=== PATIENT | female | born 1960 ===

== ENCOUNTER 2021-10-19 08:02 | Outpatient (REF) | payer OTHER, SELFPAY ==
--- NOTE | ~2021-10-19 | XR_ITS ---
EXAMINATION: XR SHOULDER, RIGHT CLINICAL INFORMATION: Pain COMPARISON: Right shoulder x-rays 11/14/2017 TECHNIQUE: Three views of the right shoulder. FINDINGS: Visualized portion of the proximal right humerus demonstrate no fracture. Humeral head demonstrates good articulation with the glenoid fossa. Large osteophyte off the inferomedial aspect of the humeral head. There are mild to moderate hypertrophic changes of the right acromioclavicular joint. Visualized right-sided ribs and lung parenchyma are unremarkable. XR/XR shoulder RT min 2V IMPRESSION: Large osteophyte off the inferomedial aspect of the humeral head.
[2021-10-19 14:50] LABS: MANUAL DIFF FLAG NO
[2021-10-19 15:10] LABS: Basophils Absolute Auto 0.1 X10*3/uL (0.0-0.2); Basophils Percent Auto 1.1 % (0-2); Eosinophils Absolute Auto 0.3 X10*3/uL (0.0-0.4); Eosinophils Percent Auto 4.7 % (0-4); Hematocrit 39.2 % (37.0-47.0); Hemoglobin 12.4 g/dl (12.0-16.0); Imm Gran Abs Auto 0.02 X10*3/uL (0.00-0.03); Imm Gran Pct Auto 0.3 % (0.0-0.4); Lymphocytes Absolute Auto 1.4 X10*3/uL (1.2-4.9); Lymphocytes Percent Auto 20.7 % (20-40); Mean Corpuscular HGB Conc 31.6 g/dl (31.0-35.0); Mean Corpuscular Volume 91.8 fL (80.0-98.0); Mean Platelet Volume 10.3 fL (9.4-12.3); Monocytes Absolute Auto 0.6 X10*3/uL (0.1-1.2); Monocytes Percent Auto 9.1 % (2-11); Neutrophils Absolute Auto 4.5 x10*3/uL (2.0-8.3); Neutrophils Percent Auto 64.1 % (45-73); Platelet Count 238 X10*3/uL (160-400); Red Blood Count 4.27 X10*6/uL (4.20-5.50); Red Cell Distribution Width 13.2 % (11.0-16.0)
[2021-10-19 15:39] LABS: Alanine Aminotransferase 14 U/L (0-31); Albumin Level 4.1 g/dL (3.5-5.0); Alkaline Phosphatase 98 U/L (39-117); Anion Gap 13 (12-20); Aspartate Amino Transferase 23 U/L (5-31); Bilirubin Total 0.5 mg/dL (0.0-1.0); Blood Urea Nitrogen 9 mg/dL (9-16); Calcium 9.3 mg/dL (8.4-10.2); Carbon Dioxide 27 mmol/L (22-29); Chloride 105 mmol/L (96-108); Cholesterol 155 mg/dL; Estimated Glomerular Filt Rate > 60; Glucose Fasting 99 mg/dL (60-99); HDL Cholesterol 43 mg/dL; LDL Cholesterol Calculated 88 mg/dl; Potassium 4.7 mmol/L (3.3-5.1); Sodium 140 mmol/L (135-145); Total Protein 7.2 g/dL (6.5-8.0); Triglycerides 124 mg/dL
[2021-10-19 15:55] LABS: Appearance Urine HAZY; Color Urine YELLOW; Glucose Urine UA NEG (NEG); Leukocyte Esterase Urine 1+ (NEG); Nitrite Urine POS (NEG); Specific Gravity - Urine >= 1.030 (1.005-1.025); UACC Culture Trigger YES; Urine Blood NEG (NEG); Urine Ketones NEG (NEG); Urine Protein TRACE MG/DL (NEG-TRACE)
[2021-10-19 16:38] LABS: Bacteria Urine 3+ /LPF; RBC Urine 0 /HPF (0)
[2021-10-19 16:44] LABS: Free T4 (Free Thyroxine) 1.15 ng/dL (0.71-1.85); Thyroid Stimulating Hormone 0.53 uIU/mL (0.32-4.0); Vitamin D 25-OH Total 8.5 ng/mL (>30)
== END 2021-10-19 08:03 | disposition home or self-care (01) ==
LOC: HO.HOSX 08:02
PROVIDERS: Absent Provider Internal Medicine; PCP Internal Medicine; Visit Provider Physician Assistant
DX: M19.011 Primary osteoarthritis, right shoulder (principal); E78.00 Pure hypercholesterolemia, unspecified; E03.9 Hypothyroidism, unspecified; E55.9 Vitamin D deficiency, unspecified; I10 Essential (primary) hypertension
CPT/HCPCS: 20610; 36415; 73030; 80053; 80061; 81001; 81003; 82306; 84439; 84443; 85025; 87086; 87088; 87186; 99212; J1040

== ENCOUNTER 2021-10-22 12:04 | Outpatient (REF) | payer OTHER, SELFPAY ==
--- NOTE | ~2021-10-22 | XR_ITS ---
EXAMINATION: XR PELVIS CLINICAL INFORMATION: Pain in hip COMPARISON: Right hip and pelvis radiographs 10/07/2017 TECHNIQUE: AP view of the pelvis. XR/XR pelvis 1-2V FINDINGS/IMPRESSION: No acute fracture or dislocation. Status post right hip arthroplasty. No findings to suggest hardware failure or complication. Left hip joint space is maintained. Degenerative disc disease in the visualized lumbosacral spine progressed from prior. Soft tissues are unremarkable.
== END 2021-10-22 12:05 | disposition home or self-care (01) ==
LOC: HO.HOSX 12:04
PROVIDERS: Visit Provider Orthopaedic Surgery
DX: M19.011 Primary osteoarthritis, right shoulder (principal); Z96.641 Presence of right artificial hip joint
CPT/HCPCS: 20610; 72170; J1100

== ENCOUNTER 2021-12-26 16:09 | Outpatient (REF) | payer OTHER, SELFPAY ==
--- NOTE | ~2021-12-26 | US_ITS ---
EXAMINATION: US VENOUS ULTRASOUND WITH DOPPLER LOWER EXTREMITY, RIGHT CLINICAL INFORMATION: Pain. COMPARISON: None TECHNIQUE: Ultrasound of the deep veins is performed from the hip to the calf with compression sonography and color and pulse Doppler assessment. Spectral analysis with color-flow imaging is performed. FINDINGS: There is normal venous compression and respiratory variation and augmented flow. The visualized common femoral vein, superficial femoral vein, profunda femoral vein, popliteal vein, and the trifurcation region shows no evidence of deep venous thrombosis. Calf veins are not well seen. There is no significant popliteal fossa cyst. If the patient's symptoms persist, followup ultrasound in 5 days 7 days might be of value to exclude proximal propagation from a non-visualized calf vein. US/US venous duplex LE RT IMPRESSION: No DVT demonstrated in the right lower extremity.
== END 2021-12-26 16:10 | disposition home or self-care (01) ==
LOC: HO.US 16:09
PROVIDERS: PCP Internal Medicine; Visit Provider Internal Medicine
DX: M79.661 Pain in right lower leg (principal); M79.89 Other specified soft tissue disorders
CPT/HCPCS: 93971

== ENCOUNTER 2021-12-27 06:27 | Outpatient (REF) | payer OTHER, SELFPAY ==
--- NOTE | ~2021-12-27 | XR_ITS ---
EXAMINATION: XR KNEE, AP STANDING, BILATERAL XR KNEE, RIGHT CLINICAL INFORMATION: Right knee pain. COMPARISON: None TECHNIQUE: AP bilateral knee standing 1 view. Right knee 2 views. FINDINGS: AP BILATERAL KNEE: There is mild reduction in medial compartment joint space both knees with mild periarticular spurring in the lateral compartment and mild loss of lateral compartment joint space. 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 RIGHT KNEE: There is anterior femoral condyle articulating metallic prosthesis and postsurgical changes along the articulating patella. Mild suprapatellar joint effusion is seen. No visible fracture or dislocation. No lytic process. No bony erosive changes. XR/XR knee RT 2V IMPRESSION: Mild degenerative arthritic changes medial and lateral compartment both knees. There is right anterior femoral condylar articulating prosthesis and right patellar articulating postoperative changes. There is mild suprapatellar joint effusion. No visible acute fracture or dislocation seen. 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
--- NOTE | ~2021-12-27 | XR_ITS ---
EXAMINATION: XR KNEE, AP STANDING, BILATERAL XR KNEE, RIGHT CLINICAL INFORMATION: Right knee pain. COMPARISON: None TECHNIQUE: AP bilateral knee standing 1 view. Right knee 2 views. FINDINGS: AP BILATERAL KNEE: There is mild reduction in medial compartment joint space both knees with mild periarticular spurring in the lateral compartment and mild loss of lateral compartment joint space. 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 RIGHT KNEE: There is anterior femoral condyle articulating metallic prosthesis and postsurgical changes along the articulating patella. Mild suprapatellar joint effusion is seen. No visible fracture or dislocation. No lytic process. No bony erosive changes. XR/XR knee standing BI IMPRESSION: Mild degenerative arthritic changes medial and lateral compartment both knees. There is right anterior femoral condylar articulating prosthesis and right patellar articulating postoperative changes. There is mild suprapatellar joint effusion. No visible acute fracture or dislocation seen. 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
== END 2021-12-27 06:28 | disposition home or self-care (01) ==
LOC: HO.HOSX 06:27
PROVIDERS: Visit Provider Orthopaedic Surgery
DX: I10 Essential (primary) hypertension (principal); E03.9 Hypothyroidism, unspecified; E78.00 Pure hypercholesterolemia, unspecified; E55.9 Vitamin D deficiency, unspecified; M25.569 Pain in unspecified knee; M79.89 Other specified soft tissue disorders; M70.51 Other bursitis of knee, right knee
CPT/HCPCS: 73560; 73565

== ENCOUNTER 2021-12-27 11:33 | Outpatient (REF) | payer OTHER, SELFPAY ==
[2021-12-27 11:43] LABS: MANUAL DIFF FLAG NO
[2021-12-27 12:16] LABS: Basophils Absolute Auto 0.1 X10*3/uL (0.0-0.2); Eosinophils Absolute Auto 0.2 X10*3/uL (0.0-0.4); Eosinophils Percent Auto 3.7 % (0-4); Hematocrit 34.2 % (37.0-47.0); Hemoglobin 11.3 g/dl (12.0-16.0); Imm Gran Abs Auto 0.02 X10*3/uL (0.00-0.03); Imm Gran Pct Auto 0.3 % (0.0-0.4); Lymphocytes Absolute Auto 1.2 X10*3/uL (1.2-4.9); Lymphocytes Percent Auto 19.3 % (20-40); Mean Corpuscular Hemoglobin 29.5 pg (27.0-33.0); Mean Corpuscular Volume 89.3 fL (80.0-98.0); Mean Platelet Volume 9.7 fL (9.4-12.3); Monocytes Absolute Auto 0.3 X10*3/uL (0.1-1.2); Monocytes Percent Auto 5.4 % (2-11); Neutrophils Absolute Auto 4.2 x10*3/uL (2.0-8.3); Neutrophils Percent Auto 70.3 % (45-73); Platelet Count 194 X10*3/uL (160-400); Red Blood Count 3.83 X10*6/uL (4.20-5.50)
[2021-12-27 12:42] LABS: Alanine Aminotransferase 10 U/L (0-31); Albumin Level 3.7 g/dL (3.5-5.0); Alkaline Phosphatase 119 U/L (39-117); Anion Gap 9 (12-20); Aspartate Amino Transferase 14 U/L (5-31); Bilirubin Total 0.5 mg/dL (0.0-1.0); Blood Urea Nitrogen 15 mg/dL (9-16); Calcium 8.8 mg/dL (8.4-10.2); Carbon Dioxide 33 mmol/L (22-29); Chloride 99 mmol/L (96-108); Cholesterol 128 mg/dL; Estimated Glomerular Filt Rate > 60; Glucose Fasting 116 mg/dL (60-99); HDL Cholesterol 37 mg/dL; LDL Cholesterol Calculated 64 mg/dl; Potassium 3.3 mmol/L (3.3-5.1); Sodium 138 mmol/L (135-145); Total Protein 6.5 g/dL (6.5-8.0); Triglycerides 135 mg/dL
[2021-12-27 13:03] LABS: Free T4 (Free Thyroxine) 0.92 ng/dL (0.71-1.85); Thyroid Stimulating Hormone 0.74 uIU/mL (0.32-4.0); Vitamin D 25-OH Total 9.1 ng/mL (>30)
== END 2021-12-27 11:34 | disposition home or self-care (01) ==
LOC: HO.LAB 11:33
PROVIDERS: Visit Provider Internal Medicine
DX: I10 Essential (primary) hypertension (principal); E03.9 Hypothyroidism, unspecified; E78.00 Pure hypercholesterolemia, unspecified; E55.9 Vitamin D deficiency, unspecified; M79.89 Other specified soft tissue disorders; M70.51 Other bursitis of knee, right knee; M25.569 Pain in unspecified knee
CPT/HCPCS: 36415; 80053; 80061; 82306; 84439; 84443; 85025

== ENCOUNTER → 2022-09-27 12:11 | Outpatient (BNVA) | payer OTHER, SELFPAY | PROVIDERS: PCP Internal Medicine; Visit Provider Orthopaedic Surgery | DX: M19.011 Primary osteoarthritis, right shoulder (principal) | CPT/HCPCS: 20610; J1100 ==

== ENCOUNTER → 2022-10-24 14:13 | Outpatient (BNVA) | payer OTHER, SELFPAY | PROVIDERS: PCP Internal Medicine; Visit Provider Internal Medicine Cardiovascular Disease | DX: I48.0 Paroxysmal atrial fibrillation (principal) | CPT/HCPCS: 93005 ==

== ENCOUNTER → 2022-11-21 11:34 | Outpatient (BNVA) | payer OTHER, SELFPAY | PROVIDERS: PCP Internal Medicine; Visit Provider Internal Medicine Cardiovascular Disease ==

== ENCOUNTER 2022-11-25 15:13 | Outpatient (REF) | payer OTHER, SELFPAY ==
[2022-11-25 15:39] LABS: MANUAL DIFF FLAG NO
[2022-11-25 17:04] LABS: Appearance Urine Clear; Color Urine Dark Yellow; Glucose Urine UA Negative (Negative); Leukocyte Esterase Urine Negative (Negative); Nitrite Urine Negative (Negative); PH 5.5 (5.0-9.0); Specific Gravity - Urine 1.025 (1.005-1.025); UMIC TRIGGER UACC YES; Urine Blood Negative (Negative); Urine Ketones Trace mg/dL (Negative); Urine Protein 100 (2+) mg/dL (Neg-Trace)
[2022-11-25 17:04] LABS: Basophils Absolute Auto 0.1 X10*3/uL (0.0-0.2); Basophils Percent Auto 1.3 % (0-2); Eosinophils Absolute Auto 0.3 X10*3/uL (0.0-0.4); Eosinophils Percent Auto 4.4 % (0-4); Hemoglobin 12.2 g/dl (12.0-16.0); Imm Gran Abs Auto 0.02 X10*3/uL (0.00-0.03); Imm Gran Pct Auto 0.3 % (0.0-0.4); Lymphocytes Absolute Auto 1.5 X10*3/uL (1.2-4.9); Lymphocytes Percent Auto 21.5 % (20-40); Mean Corpuscular Hemoglobin 29.2 pg (27.0-33.0); Mean Corpuscular Volume 88.5 fL (80.0-98.0); Mean Platelet Volume 10.3 fL (9.4-12.3); Monocytes Absolute Auto 0.4 X10*3/uL (0.1-1.2); Monocytes Percent Auto 5.9 % (2-11); Neutrophils Absolute Auto 4.5 x10*3/uL (2.0-8.3); Neutrophils Percent Auto 66.6 % (45-73); Platelet Count 218 X10*3/uL (160-400); Red Blood Count 4.18 X10*6/uL (4.20-5.50); White Blood Count 6.8 X10*3/uL (4.8-10.8)
[2022-11-25 17:10] LABS: Bacteria Urine None Seen (None Seen); Hyaline Casts Urine 0-2 /LPF (0-2); RBC Urine 0-2 /HPF (0-2); WBC Urine 0-5 /HPF (0-5)
[2022-11-25 17:30] LABS: Alanine Aminotransferase 8 U/L (0-31); Alkaline Phosphatase 101 U/L (39-117); Anion Gap 10 (12-20); Aspartate Amino Transferase 12 U/L (5-31); Bilirubin Total 0.8 mg/dL (0.0-1.0); Blood Urea Nitrogen 12 mg/dL (9-16); Calcium 9.5 mg/dL (8.4-10.2); Carbon Dioxide 28 mmol/L (22-29); Chloride 104 mmol/L (96-108); Cholesterol 170 mg/dL; Estimated Glomerular Filt Rate > 60; Glucose Fasting 94 mg/dL (60-99); HDL Cholesterol 37 mg/dL; LDL Cholesterol Calculated 114 mg/dl; Potassium 3.4 mmol/L (3.3-5.1); Sodium 139 mmol/L (135-145); Total Protein 6.9 g/dL (6.5-8.0); Triglycerides 99 mg/dL
[2022-11-25 17:49] LABS: Free T4 (Free Thyroxine) 1.12 ng/dL (0.71-1.85); Thyroid Stimulating Hormone 2.55 uIU/mL (0.32-4.0); Vitamin D 25-OH Total 35.6 ng/mL (>30)
== END 2022-11-25 15:14 | disposition home or self-care (01) ==
LOC: HO.LAB 15:13
PROVIDERS: PCP Internal Medicine; Visit Provider Internal Medicine
DX: E78.00 Pure hypercholesterolemia, unspecified (principal); E55.9 Vitamin D deficiency, unspecified; E03.9 Hypothyroidism, unspecified; I10 Essential (primary) hypertension
CPT/HCPCS: 36415; 80053; 80061; 81001; 81003; 82306; 84439; 84443; 85025

== ENCOUNTER 2023-02-28 13:34 | Outpatient (AMB) | payer OTHER, SELFPAY ==
[2023-02-28 13:36] VITALS: BP 142/90; PULSE 76; O2SAT 97; BMI 27.2
--- NOTE | 2023-02-28 13:36 | MHC.PC.OV ---
Vital Signs 02/28/23 13:36 Height 5 ft 6 in Weight 168 lb 4 oz BMI 27.2 BP 142/90 H Blood Pressure Location Lt brachial Position Sitting Pulse 76 Pulse Source Pulse Oximeter Pulse Oximetry (%) 97 Oxygen Delivery Method Room Air Intake Visit Reasons: 3mth f/u Statistician Applied Required: No Accompanied by: Self / Same As Patient Allergies latex [LATEX] Allergy (Intermediate, Verified 02/28/23 14:13) BLISTERS Medication List - Last Reconciled 02/28/23 by Carlos Mata MD blood pressure monitor (Blood Pressure Kit) As directed buspirone 30 mg PO BID 30 days cabergoline 0.25 mg PO .Weekly cholecalciferol (vitamin D3) 50 mcg PO DAILY 90 days doxepin 10 mg PO DAILY PRN escitalopram oxalate 20 mg PO DAILY fluconazole 150 mg PO ONCE hydrocodone-acetaminophen 10-325 mg 1 tab PO .2 to 3 times a day PRN 15 days hydroxychloroquine 200 mg PO BID levothyroxine 150 mcg PO DAILY 90 days lidocaine 5% 1 appl topical BID-TID PRN lorazepam 1 mg PO TID PRN 30 days metoprolol tartrate 25 mg PO BID [QUAD CANE As directed] simvastatin 20 mg PO BEDTIME 90 days [teds hose As directed] tizanidine 8 mg (2 x 4 mg) PO Q8H PRN 30 days tramadol 50 mg PO TID PRN 30 days [WRIST BRACES, bilateral (MEDIUM) As directed] Tobacco use date assessed: 02/28/23 Fall risk assessment: 2 + Falls in past year Last assessed Fall Risk: 02/28/23 Dental Screening Dental Screen Date: 02/28/23 Did you have a dental visit in the last 12 months?: No Did you have a dental problem in the last 6 months where you did not have access to dental care?: No Was dental information given to patient?: No HPI 3mth f/u HPI Details Patient comes in today for her follow up visit States that she has been having trouble getting her Lorazepam prescription refilled lately and her anxiety has significantly increased as a result States that she has also been experiencing some on and off shaking lately, which she is attributing to her anxiety Reports experiencing some chest congestion and occasional shortness of breath as well recently Add that she has been losing weight lately - feels that she eats okay so she does not know why she is losing weight and this is concerning her She denies any fever or sore throat; denies any recent cough or cold symptoms Denies any dizziness but states that she still has on and off headaches Denies any chest pains No nausea/ vomiting, no abdominal pain No change in bowel habits noted Would like to know how she did on her follow-up labs done back in November 2022 [facility] Medical History (Updated 02/28/23 @ 14:19 by Carlos Mata MD) Acquired hypothyroidism Acquired hypothyroidism Afib Anemia Anxiety Colonoscopy refused COPD (chronic obstructive pulmonary disease) Depression HTN (hypertension) Hypokalemia Impaired fasting glucose Obesity (BMI 30-39.9) Overweight (BMI 25.0-29.9) Pituitary macroadenoma Primary osteoarthritis, right shoulder Pure hypercholesterolemia Pure hypercholesterolemia Right-sided low back pain with right-sided sciatica Sacral dysfunction Sjogren's disease Sjogren's syndrome Surgical History Closed displaced fracture of right patella H/O: hysterectomy History of right hip replacement Right carpal tunnel syndrome (~2010) Family History Father CAD (coronary artery disease) Thyroid disease CVD (cardiovascular disease) Mother CVD (cardiovascular disease) Scleroderma Sister No problems noted. Brother No problems noted. Sister No problems noted. Other Closed displaced fracture of right patella Social History Housing: House Alcohol intake: former Patient Tobacco Use Status: Former Tobacco user e-Cigarette/Vaping Use: Never Used Second Hand Smoke Exposure: Yes Substance Use Type: Marijuana service: No Current occupational status: retired and disabled Cognitive needs: Yes (cane) Hearing needs: No Vision needs: No Questionnaire PHQ-9 Over the last 2 weeks, how often have you been bothered by any of the following problems? 1. Little interest or pleasure in doing things: not at all 2. Feeling down, depressed, or hopeless: not at all 3. Trouble falling or staying asleep, or sleeping too much: not at all 4. Feeling tired or having little energy: not at all 5. Poor appetite or overeating: not at all 6. Feeling bad about yourself - or that you are a failure or have let yourself or your family down: not at all 7. Trouble concentrating on things, such as reading the newspaper or watching television: not at all 8. Moving or speaking so slowly that other people could have noticed. Or the opposite - being so fidgety or restless that you have been moving around a lot more than usual: not at all 9. Thoughts that you would be better off or of hurting yourself in some way: not at all Total score: 0 Depression Screening Interpretation: Negative (is on Rx for her depression) 80597 - PHQ-9 Billing: Yes Source: Developed by Drs. David Soares, Keiry Rodgers, Donn Walls and colleagues, with an educational violet from [employer]. Thrive Questionnaire Date Thrive assessed: 02/28/23 I am a: Patient What is your living situation today?: I have a steady place to live Within the past 12 months, did the food you bought not last and you didn't have the money to get more?: Never true Within the past 12 months, did you worry whether your food would run out before you got money to buy more?: Never true Do you have trouble paying for medicines?: No Do you have trouble getting transportation to medical appointments?: No Do you have trouble paying your heating and electricity bill?: No Do you have trouble taking care of your child, family member or friend?: No Do you have trouble with day-to-day activities such as bathing, preparing meals, shopping, managing finances, etc.?: No Are you currently unemployed and looking for a job?: No Are you interested in more education?: No Please select the resources that you would like help with: None Currently or been in a relationship where the following occur: no concerns reported AUDIT C Alcohol Use Questionnaire (AUDIT-C) 1. How often do you have a drink containing alcohol?: Never 3. How often do you have six or more drinks on one occasion?: Never Total Score: 0 Score Reviewed/Action Taken: Yes PILY-7 AMB Questionnaire PILY-7 Date PILY - 7 assessed: 02/28/23 Feeling nervous, anxious, or on edge: 0 = Not at all Not being able to stop or control worryin = Not at all Worrying too much about different things: 0 = Not at all Trouble relaxin = Not at all Being so restless that it is hard to sit still: 0 = Not at all Becoming easily annoyed or irritable: 0 = Not at all Feeling afraid as if something awful might happen: 0 = Not at all Total PILY-7 score (0-4 normal; 5-9 mild; 10-14 moderate; 15-21 severe): 0 Source: Developed by Drs. David Soares, Keiry Rodgers, Donn Walls and colleagues, with an educational violet from [employer]. Review of Systems Const Denies chills, Reports difficulty sleeping, Reports fatigue, Denies fever(s), Reports headache(s) (on and off) and Reports weight loss ENT Denies dysphagia, Denies dizziness, Denies otalgia, Reports headache(s) (on and off), Denies odynophagia and Denies sore throat Card Denies chest pain, Denies palpitations and Reports dyspnea (on and off lately) Resp Reports chest congestion (frequent lately), Reports cough (on and off), Reports dyspnea (on and off lately) and Denies wheezing GI Denies abdominal pain, Denies constipation, Denies dysphagia, Denies heartburn, Denies diarrhea, Denies nausea, Denies odynophagia and Denies vomiting Denies difficulty voiding, Denies nocturia and Denies dysuria Musc Details: (+) right leg pain and swelling Reports back pain (over the lower back) and Reports arthralgias (involving multiple joints, especially over right shoulder lately) Skin/Breast Denies rash Neuro Denies dizziness, Reports headache(s) (on and off) and Reports tremor(s) (patient describes as recurrent shakes due to her anxiety) Psych Reports anxiety (increasing lately) and Reports depression Endo Reports fatigue and Denies palpitations Aller/Immun Denies wheezing Physical exam (Primary Care) Vital Signs: Last Vital Signs Pulse 76 02/28/23 13:36 BP 142/90 H 02/28/23 13:36 Pulse Ox 97 02/28/23 13:36 Oxygen Delivery Method Room Air 02/28/23 13:36 BMI result Body Mass Index 27.2 Tobacco/Smoking Status: Tobacco use Status Tobacco use date assessed 02/28/23 02/28/23 13:45 Patient Tobacco Use Status Former Tobacco user 02/28/23 13:45 e-Cigarette/Vaping Use Never Used 02/28/23 13:45 PHQ-9: PHQ-9 Score PHQ-9: Total score 0 02/28/23 14:15 Depression Screening Interpretation: Negative (is on Rx for her depression) Thrive Assessment: Date of Thrive Assessment Date Thrive assessed 02/28/23 02/28/23 13:45 Currently or been in a relationship where the following occur: no concerns reported Const General: no acute distress and alert HENMT Ears: TM's normal bilaterally and EAC's normal Throat: Yes posterior oropharynx normal and Yes tonsils normal (no TP congestion) Neck Neck: Yes no lymphadenopathy and Yes supple Thyroid: Thyroid normal Resp Auscultation: no rales, rhonchi (scattered) throughout, no wheezes and diminished lung sounds (slightly) Cardio Rate: regular rate Rhythm: regular rhythm Heart sounds: no murmurs GI Palpation (GI): Soft to palpation and nontender Auscultation: normal bowel sounds Back/Spine/Pelvis Thoracic/Lumbar Spine: lumbar spinal tenderness Skin Rashes: no rashes Neuro Motor exam (neuro): Tremors during motor activity present (noted in both hands occasionally) Extrem General: Yes edema (2+ over the right lower extremity) Results Reviewed Results Reviewed: Laboratory Tests 11/25/22 11/25/22 11/25/22 15:35 15:37 15:37 WBC 6.8 Hgb 12.2 Hct 37.0 Plt Count 218 Sodium 139 Potassium 3.4 Creatinine 0.88 Estimated GFR > 60 Fasting Glucose 94 Calcium 9.5 D AST 12 ALT 8 Triglycerides 99 Cholesterol 170 LDL Cholesterol, Calc 114 HDL Cholesterol 37 25-OH Vitamin D Total 35.6 TSH 2.55 Free T4 1.12 Ur Specific [place] 1.025 Urine Protein 100 (2+) H Urine Glucose (UA) Negative Urine Blood Negative Assessment and Plan Assessment & Plan (1) COPD (chronic obstructive pulmonary disease): Code(s): J44.9 - Chronic obstructive pulmonary disease, unspecified Qualifiers: COPD type: unspecified COPD Qualified Code(s): J44.9 - Chronic obstructive pulmonary disease, unspecified Plan: Patient appears to be experiencing some exacerbations of her COPD currently Will send her for chest x-rays [facility] for further evaluation Continue Spiriva HandiHaler 18 mcg QD and ProAir HFA 2 puffs QID PRN in the meantime (2) Pure hypercholesterolemia: Code(s): E78.00 - Pure hypercholesterolemia, unspecified Plan: Results of her labs done back in November 2022 reviewed and discussed with patient Reinforced low cholesterol diet Continue Simvastatin 20 mg QD (3) Impaired fasting glucose: Code(s): R73.01 - Impaired fasting glucose Plan: Reinforced low calorie diet/exercise as tolerated FBS was normal at 94 mg/dl on her labs done a few months ago; in-office HgbA1c was normal at 5.7% when checked back in April 2022 (4) Acquired hypothyroidism: Code(s): E03.9 - Hypothyroidism, unspecified Plan: TFTs were normal on her labs done a few months ago Continue Levothyroxine 150 mcg QD (5) Right-sided low back pain with right-sided sciatica: Code(s): M54.41 - Lumbago with sciatica, right side Qualifiers: Chronicity: chronic Qualified Code(s): M54.41 - Lumbago with sciatica, right side; G89.29 - Other chronic pain Plan: Reinforced activity and weight-lifting restrictions Continue Gabapentin 600 mg 3 times a day Continue [place] 10-325 mg 1 tablet 2 to 3 times a day as needed, 15 days, # 40 tablets, refills 0 Patient was receiving physical therapy at the beginning of 2019 - states that therapy was helping but this was cut short by the COVID-19 pandemic and she has not resumed PT since as patient does not want to get vaccinated against COVID and she wants to limit her exposure risks Adds that physical therapy is at least a [address] away and she cannot afford the gas money required for her to get to her sessions then (6) Sjogren's disease: Code(s): M35.00 - Sjogren syndrome, unspecified Qualifiers: Sjogren's organ involvement: unspecified organ involvement Qualified Code(s): M35.00 - Sicca syndrome, unspecified Plan: Continue Hydroxychloroquine tablets 200 mg twice a day Follow up with rheumatology as scheduled (7) Tremor: Code(s): R25.1 - Tremor, unspecified Plan: Patient reports experiencing frequent shaking spells lately, which she is attributing to her increased anxiety Suspect that her shaking may actually be tremors Will refer her to neurology for further evaluation and management (8) Vitamin D deficiency: Code(s): E55.9 - Vitamin D deficiency, unspecified Plan: Continue Vitamin D3 2000 units QD (9) Anxiety: Code(s): F41.9 - Anxiety disorder, unspecified Plan: Continue Lorazepam 1 mg TID PRN, Buspirone 30 mg BID, Escitalopram 20 mg QD and Doxepin 10 mg Q HS As she has been having trouble getting her regular Lorazepam 1 mg Rx refilled lately, will try to send in Rx for the 0.5 mg tablets that she can take 2 at a time Advised that this will be a temporary solution until her regular 1 mg tablets are back in stock (10) Depression: Code(s): F32.9 - Major depressive disorder, single episode, unspecified Qualifiers: Active/Remission status: currently active Depression Type: major depressive disorder Major depression episode severity: unspecified Major depression recurrence: recurrent Qualified Code(s): F33.9 - Major depressive disorder, recurrent, unspecified Plan: Continue Escitalopram 20 mg QD Could not tolerate Mirtazapine (leg cramps) Is also seeing a therapist regularly/weekly - to continue as scheduled (11) Overweight (BMI 25.0-29.9): Code(s): E66.3 - Overweight Plan: Reinforced diet; exercise and weight loss are unrealistic given patient's physical limitations and issues although she has lost some weight unintentionally lately and this is concerning for her Plan To return as scheduled in 2 months for her annual physical examination Orders: Orders XR chest 2V 02/28/23 J44.9 - Chronic obstructive pulmonary disease, unspecified, R06.00 - Dyspnea, unspecified, R63.4 - Abnormal weight loss Complete Blood Count Auto Diff 04/14/23 I10 - Essential (primary) hypertension Comprehensive [place]. Panel Fast 04/14/23 E78.00 - Pure hypercholesterolemia, unspecified Lipid Panel 04/14/23 E78.00 - Pure hypercholesterolemia, unspecified Free T4 (Free Thyroxine) 04/14/23 E03.9 - Hypothyroidism, unspecified Thyroid Stimulating Hormone 04/14/23 E03.9 - Hypothyroidism, unspecified Vitamin D 25-OH Total 04/14/23 E55.9 - Vitamin D deficiency, unspecified UA CC w/rflx Micro + Cult 04/14/23 R30.0 - Dysuria Referrals Neurology Referral R25.1 - Tremor, unspecified Medications: New lorazepam 1 mg (2 x 0.5 mg) PO TID 14 days PRN 84 tabs 0RF anxiety Coding Level of Care Code Est Pt Level 4 (58608) Diagnoses COPD (chronic obstructive pulmonary disease) J44.9 COPD type: unspecified COPD Pure hypercholesterolemia E78.00 Impaired fasting glucose R73.01 Acquired hypothyroidism E03.9 Right-sided low back pain with right-sided sciatica M54.41; G89.29 Chronicity: chronic Sjogren's disease M35.00 Sjogren's organ involvement: unspecified organ involvement Tremor R25.1 Vitamin D deficiency E55.9 Anxiety F41.9 Depression F33.9 Active/Remission status: currently active Depression Type: major depressive disorder Major depression episode severity: unspecified Major depression recurrence: recurrent Overweight (BMI 25.0-29.9) E66.3
== END 2023-02-28 14:30 | disposition home or self-care (01) ==
PROVIDERS: PCP Internal Medicine; Visit Provider Internal Medicine
DX: E03.9 Hypothyroidism, unspecified (principal); E55.9 Vitamin D deficiency, unspecified; F33.9 Major depressive disorder, recurrent, unspecified; F41.9 Anxiety disorder, unspecified; J44.9 Chronic obstructive pulmonary disease, unspecified; M35.00 Sjogren syndrome, unspecified; R73.01 Impaired fasting glucose; E78.00 Pure hypercholesterolemia, unspecified; M54.41 Lumbago with sciatica, right side; G89.29 Other chronic pain; R25.1 Tremor, unspecified; E66.3 Overweight
CPT/HCPCS: 99214

== ENCOUNTER 2023-02-28 14:36 | Outpatient (REF) | payer OTHER, SELFPAY ==
--- NOTE | ~2023-02-28 | XR_ITS ---
EXAMINATION: XR CHEST CLINICAL INFORMATION: Chronic obstructive pulmonary disease COMPARISON: 07/22/2013 AP supine view of the chest TECHNIQUE: 2 views of the chest were obtained. FINDINGS: Dextroscoliosis of the thoracic spine with multilevel degenerative changes. There is no gross pneumothorax. Heart size normal. No focal consolidation to suggest pneumonia. No pleural effusion. XR/XR chest 2V IMPRESSION: No focal consolidation to suggest pneumonia.
== END 2023-02-28 14:37 | disposition home or self-care (01) ==
LOC: HO.XRAY 14:36
PROVIDERS: PCP Internal Medicine; Visit Provider Internal Medicine
DX: J44.9 Chronic obstructive pulmonary disease, unspecified (principal); R06.00 Dyspnea, unspecified; R63.4 Abnormal weight loss
CPT/HCPCS: 71046

== ENCOUNTER 2023-04-22 12:59 | Outpatient (AMB) | payer OTHER, SELFPAY ==
[2023-04-22 13:00] VITALS: BP 122/90; PULSE 71; O2SAT 99; BMI 26.4
--- NOTE | 2023-04-22 13:00 | A.OFFPC_ITS ---
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: No Accompanied by: Self / Same As Patient Allergies latex [LATEX] Allergy (Intermediate, Verified 12/31/23 13:58) BLISTERS Medication List - Last Reconciled 01/05/24 by Carlos Mata MD blood pressure monitor (Blood Pressure Kit) As directed buspirone 30 mg PO BID 90 days cabergoline 0.25 mg (1/2 x 0.5 mg) PO .weekly 3 months calcium polycarbophil (FiberCon) 1,250 mg (2 x 625 mg) PO DAILY 30 days cholecalciferol (vitamin D3) 50 mcg PO DAILY 90 days docusate sodium (Colace) 200 mg (2 x 100 mg) PO BEDTIME PRN 90 days doxepin 10 mg PO DAILY PRN escitalopram oxalate 20 mg PO DAILY hydrocodone-acetaminophen 10-325 mg 1 tab PO .2 to 3 times a day PRN 15 days hydrocodone-acetaminophen 10-325 mg 1 tab PO .2 to 3 times a day PRN hydroxychloroquine 200 mg PO BID 90 days levothyroxine 150 mcg PO DAILY 90 days lidocaine 5% 1 appl topical BID-TID PRN lorazepam 1 mg PO TID 90 days metoprolol tartrate 25 mg PO BID 90 days pantoprazole 40 mg PO DAILY 90 days [QUAD CANE As directed] simvastatin 20 mg PO BEDTIME 90 days [teds hose As directed] tizanidine 8 mg (2 x 4 mg) PO Q8H 90 days tramadol 50 mg PO TID 90 days [WRIST BRACES, bilateral (MEDIUM) As directed] Tobacco use date assessed: 04/22/23 Fall risk assessment: 2 + Falls in past year Last assessed Fall Risk: 04/22/23 Dental Screening Dental Screen Date: 04/22/23 Did you have a dental visit in the last 12 months?: No Did you have a dental problem in the last 6 months where you did not have access to dental care?: No Was dental information given to patient?: No HPI Annual Exam HPI Details Patient comes in today for her annual physical examination States that she feels okay She denies any dizziness but still has on and off headaches (chronic) Denies any chest pains, no increased SOB No abdominal pain but reports feeling nauseous often lately; states that she has thrown up a few times as well recently and is not sure what is going on with her stomach No change in bowel habits noted Denies any acute urinary symptoms Adds that she fell about 2 weeks ago and her right forearm has been hurting a lot since - thinks that she may have injured her right arm when she fell She still has not been able to get her follow up labs done yet [facility] Medical History Osteopenia Overweight (BMI 25.0-29.9) Pituitary macroadenoma HTN (hypertension) Afib Hypokalemia Colonoscopy refused Pure hypercholesterolemia Acquired hypothyroidism Sjogren's syndrome Primary osteoarthritis, right shoulder Obesity (BMI 30-39.9) Depression Sjogren's disease Anemia Impaired fasting glucose Pure hypercholesterolemia COPD (chronic obstructive pulmonary disease) Acquired hypothyroidism Sacral dysfunction Right-sided low back pain with right-sided sciatica Anxiety Surgical History History of right hip replacement Closed displaced fracture of right patella Right carpal tunnel syndrome (~2010) H/O: hysterectomy Family History Father CAD (coronary artery disease) Thyroid disease CVD (cardiovascular disease) Mother CVD (cardiovascular disease) Scleroderma Sister No problems noted. Brother No problems noted. Sister No problems noted. Other Closed displaced fracture of right patella Social History Housing: House Alcohol intake: former Patient Tobacco Use Status: Former Tobacco user e-Cigarette/Vaping Use: Never Used Second Hand Smoke Exposure: Yes Substance Use Type: Marijuana service: No Current occupational status: retired and disabled Cognitive needs: Yes (cane) Hearing needs: No Vision needs: No Questionnaire PHQ-9 Over the last 2 weeks, how often have you been bothered by any of the following problems? 1. Little interest or pleasure in doing things: not at all 2. Feeling down, depressed, or hopeless: not at all 3. Trouble falling or staying asleep, or sleeping too much: not at all 4. Feeling tired or having little energy: not at all 5. Poor appetite or overeating: not at all 6. Feeling bad about yourself - or that you are a failure or have let yourself or your family down: not at all 7. Trouble concentrating on things, such as reading the newspaper or watching television: not at all 8. Moving or speaking so slowly that other people could have noticed. Or the opposite - being so fidgety or restless that you have been moving around a lot more than usual: not at all 9. Thoughts that you would be better off or of hurting yourself in some way: not at all Total score: 0 Depression Screening Interpretation: Negative (is on Rx for her depression) Depression Screening Done: Yes 26181 - PHQ-9 Billing: Yes Source: Developed by Drs. David Soares, Keiry Rodgers, Donn Walls and colleagues, with an educational violet from [employer]. Thrive Questionnaire Date Thrive assessed: 04/22/23 I am a: Patient What is your living situation today?: I have a steady place to live Within the past 12 months, did the food you bought not last and you didn't have the money to get more?: Never true Within the past 12 months, did you worry whether your food would run out before you got money to buy more?: Never true Do you have trouble paying for medicines?: No Do you have trouble getting transportation to medical appointments?: No Do you have trouble paying your heating and electricity bill?: No Do you have trouble taking care of your child, family member or friend?: No Do you have trouble with day-to-day activities such as bathing, preparing meals, shopping, managing finances, etc.?: No Are you currently unemployed and looking for a job?: No Are you interested in more education?: No Please select the resources that you would like help with: None Currently or been in a relationship where the following occur: no concerns reported AUDIT C Alcohol Use Questionnaire (AUDIT-C) 1. How often do you have a drink containing alcohol?: Never 3. How often do you have six or more drinks on one occasion?: Never Total Score: 0 Score Reviewed/Action Taken: Yes PILY-7 AMB Questionnaire PILY-7 Date PILY - 7 assessed: 04/22/23 Feeling nervous, anxious, or on edge: 0 = Not at all Not being able to stop or control worryin = Not at all Worrying too much about different things: 0 = Not at all Trouble relaxin = Not at all Being so restless that it is hard to sit still: 0 = Not at all Becoming easily annoyed or irritable: 0 = Not at all Feeling afraid as if something awful might happen: 0 = Not at all Total PILY-7 score (0-4 normal; 5-9 mild; 10-14 moderate; 15-21 severe): 0 Source: Developed by Drs. David Soares, Keiry Rodgers, Donn Walls and colleagues, with an educational violet from [employer]. Review of Systems Const Denies chills, Reports difficulty sleeping, Reports fatigue, Denies fever(s) and Reports headache(s) (on and off) Eyes Denies blurry vision, Denies change in vision, Denies irritation and Denies itchy eyes ENT Reports dysphagia (on and off), Denies dizziness, Denies otalgia, Reports head ache(s) (on and off), Reports neck pain (increasing lately), Denies odynophagia and Denies sore throat Card Denies chest pain, Denies palpitations and Denies dyspnea Resp Denies chest congestion, Denies cough, Denies dyspnea and Denies wheezing GI Denies abdominal pain, Denies constipation, Reports dysphagia (on and off), D enies heartburn, Denies diarrhea, Reports nausea (recurrent), Denies odynophagia and Reports vomiting (on and off lately) Denies difficulty voiding, Denies nocturia, Denies dysuria, Reports urinary incontinence (at times) and Denies urinary urgency Musc Details: (+) right leg pain and swelling; increased pain over the right forearm for the past couple of weeks Reports back pain (over the lower back), Reports arthralgias (involving multiple joints, especially over right shoulder lately) and Reports neck pain (increasing lately) Skin/Breast Denies rash Neuro Denies dizziness, Reports headache(s) (on and off) and Reports tremor(s) (patient describes as recurrent shakes due to her anxiety) Psych Reports anxiety and Reports depression Endo Reports fatigue and Denies palpitations Darwin/Lymph Denies easy bruising Aller/Immun Denies itchy eyes and Denies wheezing Physical exam (Primary Care) Vital Signs: Last Vital Signs Pulse 71 04/22/23 13:00 BP 122/90 H 04/22/23 13:00 Pulse Ox 99 04/22/23 13:00 Oxygen Delivery Method Room Air 04/22/23 13:00 BMI result Body Mass Index 26.4 Tobacco/Smoking Status: Tobacco use Status Tobacco use date assessed 04/22/23 04/22/23 13:04 Patient Tobacco Use Status Former Tobacco user 04/22/23 13:02 e-Cigarette/Vaping Use Never Used 04/22/23 13:02 PHQ-9: PHQ-9 Score PHQ-9: Total score 0 04/22/23 13:54 Depression Screening Interpretation: Negative (is on Rx for her depression) Thrive Assessment: Date of Thrive Assessment Date Thrive assessed 04/22/23 04/22/23 13:04 Currently or been in a relationship where the following occur: no concerns reported Const General: no acute distress and alert Orientation/consciousness: patient oriented x3 HENMT Head: Yes normocephalic and Yes atraumatic Ears: TM's normal bilaterally and EAC's normal General nose exam: No nasal discharge present Face and sinus: Yes normal facial exam and Yes sinuses nontender Teeth and gingiva: dentition normal Throat: Yes posterior oropharynx normal and Yes tonsils normal (no TP congestion) Eyes Eyelids: Yes eyelids normal Conjunctivae: conjunctivae normal Pupils: Equal, round and reactive pupils present EOM: EOMs intact bilaterally Neck Neck: Yes no lymphadenopathy and Yes tender Thyroid: Thyroid normal Resp Auscultation: no rales, no wheezes and diminished lung sounds (slightly) Cardio Rate: regular rate Rhythm: regular rhythm Heart sounds: no murmurs GI Palpation (GI): Soft to palpation and nontender Auscultation: normal bowel sounds General: Yes no CVA tenderness Back/Spine/Pelvis Back: no CVA tenderness Cervical Spine: Cervical spine tenderness Thoracic/Lumbar Spine: lumbar spinal tenderness Skin Lesions: no lesions Rashes: no rashes Neuro General: patient oriented x3, moves all extremities, no focal motor deficits and CN's II-XI intact bilaterally Cranial nerves: Yes Equal, round and reactive pupils present Cognition (Neuro): normal cognition Gait exam (Neuro): Normal gait present Extrem General: No clubbing, No cyanosis and Yes edema (1+, over the right lower extremity) Assessment and Plan Assessment & Plan (1) Annual physical exam: Code(s): Z00.00 - Encounter for general adult medical examination without abnormal findings Plan: Patient is advised to try to get her previously ordered labs done [place] as she has not had any follow up labs done in a while She continues to decline being referred for screening colonoscopy; also declines offer to have her do Cologuard testing She also declines being sent/scheduled for annual mammography She is advised to reconsider these and that she can call at any time for these orders if she changes her mind (2) COPD (chronic obstructive pulmonary disease): Code(s): J44.9 - Chronic obstructive pulmonary disease, unspecified Qualifiers: COPD type: unspecified COPD Qualified Code(s): J44.9 - Chronic obstructive pulmonary disease, unspecified Plan: Stable/controlled lately Continue Spiriva HandiHaler 18 mcg QD and ProAir HFA 2 puffs QID PRN (3) Pure hypercholesterolemia: Code(s): E78.00 - Pure hypercholesterolemia, unspecified Plan: Patient has not had any follow up labs done since November 2022 and is encouraged to try getting her previously ordered labs done [place] Reinforced low cholesterol diet Continue Simvastatin 20 mg QD (4) Impaired fasting glucose: Code(s): R73.01 - Impaired fasting glucose Plan: Reinforced low calorie diet/exercise as tolerated FBS was normal at 94 mg/dl on her labs done a few months ago; in-office HgbA1c was normal at 5.7% when checked back in April 2022 (5) Acquired hypothyroidism: Code(s): E03.9 - Hypothyroidism, unspecified Plan: Continue Levothyroxine 150 mcg QD She is advised to get her TFTs rechecked [place] for follow up (6) Right-sided low back pain with right-sided sciatica: Code(s): M54.41 - Lumbago with sciatica, right side Qualifiers: Chronicity: chronic Qualified Code(s): M54.41 - Lumbago with sciatica, right side; G89.29 - Other chronic pain Plan: Reinforced activity and weight-lifting restrictions Continue Gabapentin 600 mg 3 times a day Continue [place] 10-325 mg 1 tablet 2 to 3 times a day as needed, 15 days, # 40 tablets, refills 0 Patient was receiving physical therapy at the beginning of 2019 - states that therapy was helping but this was cut short by the COVID-19 pandemic and she has not resumed PT since as patient does not want to get vaccinated against COVID and she wants to limit her exposure risks Adds that physical therapy is at least a [address] away and she cannot afford the gas money required for her to get to her sessions then (7) Sjogren's disease: Code(s): M35.00 - Sjogren syndrome, unspecified Qualifiers: Sjogren's organ involvement: unspecified organ involvement Qualified Code(s): M35.00 - Sicca syndrome, unspecified Plan: Continue Hydroxychloroquine tablets 200 mg twice a day Follow up with rheumatology as scheduled (8) Nausea & vomiting: Comment: Resolved, describes reflux Code(s): R11.2 - Nausea with vomiting, unspecified Qualifiers: Vomiting type: unspecified Qualified Code(s): R11.2 - Nausea with vomiting, unspecified Plan: Will refer her to GI for further evaluation and management (9) Tremor: Code(s): R25.1 - Tremor, unspecified Plan: Patient reports experiencing frequent shaking spells lately, which she is attributing to her increased anxiety Suspect that her shaking may actually be tremors She was seen by neurology last week and was sent for brain MRI for further evaluation - this is reportedly scheduled for next week Follow up with neurology as scheduled (10) Vitamin D deficiency: Code(s): E55.9 - Vitamin D deficiency, unspecified Plan: Continue Vitamin D3 2000 units QD (11) Pain in right forearm: Code(s): M79.631 - Pain in right forearm Plan: S/P fall a few weeks ago Will send her for x-ray of the right forearm for further evaluation (12) Anxiety: Code(s): F41.9 - Anxiety disorder, unspecified Plan: Continue Lorazepam 1 mg TID PRN, Buspirone 30 mg BID, Escitalopram 20 mg QD and Doxepin 10 mg Q HS (13) Depression: Code(s): F32.9 - Major depressive disorder, single episode, unspecified Qualifiers: Active/Remission status: currently active Depression Type: major depressive disorder Major depression episode severity: unspecified Major depression recurrence: recurrent Qualified Code(s): F33.9 - Major depressive disorder, recurrent, unspecified Plan: Continue Escitalopram 20 mg QD Could not tolerate Mirtazapine (leg cramps) Is also seeing a therapist regularly/weekly - to continue as scheduled (14) Overweight (BMI 25.0-29.9): Code(s): E66.3 - Overweight Plan: Reinforced diet; exercise and weight loss are unrealistic given patient's physical limitations and issues although she has lost some weight unintentionally lately and this is concerning for her Plan Follow up in 3 months Orders: Orders XR forearm RT 2V 04/22/23 M79.631 - Pain in right forearm, Z91.81 - History of falling Referrals Gastroenterology Referral R11.2 - Nausea with vomiting, unspecified Review Patient declined Mammogram: 04/22/23 Patient declined Colonoscopy: 04/22/23 Patient declined Colon Cancer Screen Lab: 04/22/23 Coding Level of Care Code Est Pt Prev Care >65y(73590) Diagnoses Annual physical exam Z00.00 Chronic obstructive pulmonary disease, unspecified COPD type J44.9 COPD type: unspecified COPD Pure hypercholesterolemia E78.00 Impaired fasting glucose R73.01 Acquired hypothyroidism E03.9 Chronic right-sided low back pain with right-sided sciatica M54.41; G89.29 Chronicity: chronic Sjogren's syndrome, with unspecified organ involvement M35.00 Sjogren's organ involvement: unspecified organ involvement Nausea and vomiting, unspecified vomiting type R11.2 Vomiting type: unspecified Tremor R25.1 Vitamin D deficiency E55.9 Pain in right forearm M79.631 Anxiety F41.9 Episode of recurrent major depressive disorder, unspecified depression episode severity F33.9 Active/Remission status: currently active Depression Type: major depressive disorder Major depression episode severity: unspecified Major depression recurrence: recurrent Overweight (BMI 25.0-29.9) E66.3
== END 2023-04-22 14:10 | disposition home or self-care (01) ==
PROVIDERS: Visit Provider Internal Medicine
DX: Z00.00 Encounter for general adult medical examination without abnormal findings (principal); J44.9 Chronic obstructive pulmonary disease, unspecified; E78.00 Pure hypercholesterolemia, unspecified; R73.01 Impaired fasting glucose; E03.9 Hypothyroidism, unspecified; M54.41 Lumbago with sciatica, right side; G89.29 Other chronic pain; M35.00 Sjogren syndrome, unspecified; R11.2 Nausea with vomiting, unspecified; R25.1 Tremor, unspecified; E55.9 Vitamin D deficiency, unspecified; M79.631 Pain in right forearm; F41.9 Anxiety disorder, unspecified; F33.9 Major depressive disorder, recurrent, unspecified; E66.3 Overweight
CPT/HCPCS: 99499

== ENCOUNTER 2023-05-07 13:32 | Outpatient (AMB) | payer OTHER, SELFPAY ==
[2023-05-07 13:48] VITALS: BP 120/82; PULSE 77; BMI 26.3
--- NOTE | 2023-05-07 13:48 | MHC.OFFVIS ---
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 Required: No Allergies latex [LATEX] Allergy (Intermediate, Verified 04/22/23 13:01) BLISTERS Medication List - Last Reconciled 05/07/23 by Vince Garcia MD blood pressure monitor (Blood Pressure Kit) As directed buspirone 30 mg PO BID 30 days cabergoline 0.25 mg PO .Weekly cholecalciferol (vitamin D3) 50 mcg PO DAILY 90 days doxepin 10 mg PO DAILY PRN escitalopram oxalate 20 mg PO DAILY fluconazole 150 mg PO ONCE hydrocodone-acetaminophen 10-325 mg 1 tab PO .2 to 3 times a day PRN 15 days hydroxychloroquine 200 mg PO BID levothyroxine 150 mcg PO DAILY 90 days lidocaine 5% 1 appl topical BID-TID PRN lorazepam 1 mg (2 x 0.5 mg) PO TID PRN 14 days lorazepam 1 mg PO TID PRN 30 days metoprolol tartrate 25 mg PO BID [QUAD CANE As directed] simvastatin 20 mg PO BEDTIME 90 days [teds hose As directed] tizanidine 8 mg (2 x 4 mg) PO Q8H PRN 30 days tramadol 50 mg PO TID PRN 30 days [WRIST BRACES, bilateral (MEDIUM) As directed] HPI HPI Comments History of Present Illness Details Ritu comes for follow-up. She has had no clear recurrent episode of atrial fibrillation, although she is asymptomatic from this perspective. She complains retrosternal chest tightness/sharp pain sometimes under stressful situations. Sometimes she gets that after eating food. She also has some evidence of dysphagia. She is currently not on oral anticoagulation therapy. Recent neurologic consult to requested MRI. No recommendations as to oral anticoagulation use. Takes all her medications. [facility]LY [facility], [facility] Medical History Overweight (BMI 25.0-29.9) Pituitary macroadenoma HTN (hypertension) Afib Hypokalemia Colonoscopy refused Pure hypercholesterolemia Acquired hypothyroidism Sjogren's syndrome Primary osteoarthritis, right shoulder Obesity (BMI 30-39.9) Depression Sjogren's disease Anemia Impaired fasting glucose Pure hypercholesterolemia COPD (chronic obstructive pulmonary disease) Acquired hypothyroidism Sacral dysfunction Right-sided low back pain with right-sided sciatica Anxiety Surgical History History of right hip replacement Closed displaced fracture of right patella Right carpal tunnel syndrome (~2010) H/O: hysterectomy Family History Father CAD (coronary artery disease) Thyroid disease CVD (cardiovascular disease) Mother CVD (cardiovascular disease) Scleroderma Sister No problems noted. Brother No problems noted. Sister No problems noted. Other Closed displaced fracture of right patella Social History Housing: House Alcohol intake: former Patient Tobacco Use Status: Former Tobacco user e-Cigarette/Vaping Use: Never Used Second Hand Smoke Exposure: Yes Substance Use Type: Marijuana service: No Current occupational status: retired and disabled Cognitive needs: Yes (cane) Hearing needs: No Vision needs: No Review of Systems Const Denies chills, Denies fatigue, Denies fever(s), Denies frequent falls, Denies weakness, Denies weight gain and Denies weight loss ENT Denies dizziness Card Denies chest pain, Denies leg edema, Denies lightheadedness, Denies palpitations, Denies dyspnea, Denies dyspnea on exertion, Denies orthopnea and Denies other (loss of consciousness) Resp Denies cough, Denies dyspnea and Denies dyspnea on exertion GI Denies hematochezia and Denies change in stool character Musc Denies abnormal gait, Denies muscle weakness, Denies numbness, Denies radiating pain into limb and Denies tingling Neuro Denies Abnormal speech present, Denies abnormal gait, Denies dizziness, Denies frequent falls, Denies numbness, Denies tingling and Denies weakness Endo Denies fatigue and Denies palpitations Physical Exam Vital Signs: Last Vital Signs Pulse 77 05/07/23 13:48 BP 120/82 05/07/23 13:48 BMI result Body Mass Index 26.3 Const General: cooperative, comfortable, no acute distress, alert and awake Nutritional Appearance: overweight Orientation/consciousness: patient oriented x3 Limitations: no limitations Neck Neck: Yes trachea midline, Yes supple and Yes no JVD Resp Effort & Inspection: normal respiratory effort Auscultation: clear to auscultation bilaterally Cardio Jugular venous distension: no JVD Palpation: normal PMI Rate: regular rate Rhythm: regular rhythm Heart sounds: S1 normal heart sound present, S2 normal heart sound present, no click, no gallops, no murmurs and no rubs GI Auscultation: normal bowel sounds Skin General skin exam: no rashes or lesions noted Neuro General: patient oriented x3 and no focal motor deficits Speech: No Abnormal speech present Extrem General: Yes no clubbing, cyanosis or edema Assessment & Plan Assessment & Plan (1) Paroxysmal atrial fibrillation: Code(s): I48.0 - Paroxysmal atrial fibrillation Plan: Paroxysmal atrial fibrillation without any obvious clinical recurrence. This will be difficult to track as she clearly had no symptoms at the time of presentation with atrial fibrillation. Continue metoprolol therapy. Avoidance of stimulants was discussed. Should be a candidate for oral anticoagulation therapy once cleared by in Neurology or Neurosurgery given her pituitary macroadenoma with hemorrhage. Once cleared should consider starting on Eliquis or Xarelto therapy. Continue pursue rhythm control approach. (2) Atypical chest pain: Code(s): R07.89 - Other chest pain Plan: Patient intermittent retrosternal chest discomfort under stressful situation. She does not exercise much. She has multiple risk factors for obstructive coronary artery disease. Would suggest a vasodilating myocardial perfusion imaging to further assess for the same. If this is within normal limits should consider GI workup. Will follow up in the clinic in 1 year's time, sooner p.r.n.. Thank you for allowing me to partake in the care Coding Level of Care Code Est Pt Level 4 (84138) Diagnoses Paroxysmal atrial fibrillation I48.0 Atypical chest pain R07.89
== END 2023-05-07 14:12 | disposition home or self-care (01) ==
PROVIDERS: Visit Provider Internal Medicine Cardiovascular Disease
DX: I48.0 Paroxysmal atrial fibrillation (principal); R07.89 Other chest pain
CPT/HCPCS: 99214

== ENCOUNTER → 2023-05-07 13:32 | Outpatient (BNVA) | payer OTHER, SELFPAY | PROVIDERS: Visit Provider Internal Medicine Cardiovascular Disease ==

== ENCOUNTER 2023-05-12 12:19 | Outpatient (AMB) | payer OTHER, SELFPAY ==
--- NOTE | 2023-05-12 12:27 | A.OFFVIS_ITS ---
Intake Intake Visit Reasons: O/V O.A of right shoulder last inj 09/27/22 Intake Note: Ritu is a 62 year old right hand dominant female who presents today for a followup of her right shoulder. Last Injection done 09/27/22. Patient reports that this last injection was not very helpful this time however she has significant relief in the past. Allergies latex [LATEX] Allergy (Intermediate, Verified 05/12/23 12:29) BLISTERS HPI O/V O.A of right shoulder last inj 09/27/22 HPI Details Ritu is a 62 year old woman with right shoulder OA. She was last injected on 09/27/22, into her [ ], which she says did not give her any relief and was done in the wrong spot. She would like a repeat injection today. She continues to have pain and limited ROM with her shoulder. She lives in [facility], and has been travelling here for treatment, but she is wondering if she should find someplace closer to home to continue with treatm ent. [facility] Medical History Overweight (BMI 25.0-29.9) Pituitary macroadenoma HTN (hypertension) Afib Hypokalemia Colonoscopy refused Pure hypercholesterolemia Acquired hypothyroidism Sjogren's syndrome Primary osteoarthritis, right shoulder Obesity (BMI 30-39.9) Depression Sjogren's disease Anemia Impaired fasting glucose Pure hypercholesterolemia COPD (chronic obstructive pulmonary disease) Acquired hypothyroidism Sacral dysfunction Right-sided low back pain with right-sided sciatica Anxiety Surgical History History of right hip replacement Closed displaced fracture of right patella Right carpal tunnel syndrome (~2010) H/O: hysterectomy Family History Father CAD (coronary artery disease) Thyroid disease CVD (cardiovascular disease) Mother CVD (cardiovascular disease) Scleroderma Sister No problems noted. Brother No problems noted. Sister No problems noted. Other Closed displaced fracture of right patella Social History Housing: House Alcohol intake: former Patient Tobacco Use Status: Former Tobacco user e-Cigarette/Vaping Use: Never Used Second Hand Smoke Exposure: Yes Substance Use Type: Marijuana service: No Current occupational status: retired and disabled Cognitive needs: Yes (cane) Hearing needs: No Vision needs: No Review of Systems Const All systems reviewed & are unremarkable except as noted in HPI and below Physical Exam Const General: no acute distress, alert and awake Orientation/consciousness: patient oriented x3 HEENT Head: Yes normocephalic and Yes atraumatic Eyes EOM: EOMs intact bilaterally Resp Effort & Inspection: normal respiratory effort and able to speak in complete sentences Cardio Jugular venous distension: no JVD Skin General skin exam: turgor normal Rashes: no rashes Neuro General: patient oriented x3 Extrem Other: 30 deg ER with pain + Hawkin's and Neer which more closely reproduces her pain. Psych Appearance: grossly normal Affect: normal affect Attitude: cooperative Office Procedures Joint Injection/Drain Joint Injection/Drain Details: Injected 1 mL of Decadron and 3 mL 1% lidocaine and 3 mL of 0.25% Marcaine. Site was prepped using aseptic technique. Patient tolerated the procedure well. Primary Site: right shoulder Approach Used: posterolateral Coding 61337 - Large joint Procedure code (CPT) selection complete Results Reviewed Results Reviewed: 05/12/23 12:27 BUPivacaine MPF 0.25 % [Sensorcaine-MPF 0.25% 10 ML] 10 ml .ROUTE .STK-MED ONE Lidocaine HCl 2 % MPF [Xylocaine 2 % MPF] 5 ml .ROUTE .STK-MED ONE dexAMETHasone sod phosphate [Decadron] 4 mg .ROUTE .STK-MED ONE GH OA right shoulder Assessment & Plan Assessment & Plan (1) Osteoarthritis of right shoulder: Code(s): M19.011 - Primary osteoarthritis, right shoulder Plan: This is a 62 year old woman with right shoulder OA. She has pain with daily activity and is limited in her ROM, particularly with overhead activities such as brushing her hair. She was last injected on 09/27/22, with minimal relief, but her prior injection into the GH joint was very helpful. I discussed her diagnosis and treatment options. She would benefit from a TSA in the future, but she has other stressors and issues that she should manage before considering surgery. I injected her right shoulder today (SAS), which she tolerated well. She can follow up prn. Plan Scribed for Anmol Watson MD by Ludwin Law medical insurance claims processor, on 05/12/23 at 12:40 PM, EST. Coding Level of Care Code Est Pt Level 4 (83943) Diagnoses Osteoarthritis of right shoulder M19.011 CPT Codes Coding - 32964 Large joint: 93630 - Large joint ([id number])
== END 2023-05-12 12:45 | disposition home or self-care (01) ==
PROVIDERS: PCP Internal Medicine; Visit Provider Orthopaedic Surgery
DX: M19.011 Primary osteoarthritis, right shoulder (principal)
CPT/HCPCS: 20610; 99213

== ENCOUNTER → 2023-05-12 12:19 | Outpatient (BNVA) | payer OTHER, SELFPAY | PROVIDERS: PCP Internal Medicine; Visit Provider Orthopaedic Surgery | DX: M19.011 Primary osteoarthritis, right shoulder (principal) | CPT/HCPCS: 20610; J1100 ==

== ENCOUNTER 2023-06-18 13:02 | Outpatient (AMB) | payer OTHER, SELFPAY ==
--- NOTE | 2023-06-18 13:15 | MHC.OFFVIS ---
Intake Vital Signs 06/18/23 13:17 Height 5 ft 6 in Weight 165 lb 5.547 oz BMI 26.7 BP 144/75 H Blood Pressure Location Lt brachial Position Sitting Pulse 66 Intake Visit Reasons: Nausea/vomiting Intake Note: She states that she is here today for N/V she states that she does not have vomit but more so upchuck of her food or water whatever she intakes. She states that she gets pains in her stomach with constipation. She has BMs that are balls. Allergies latex [LATEX] Allergy (Intermediate, Verified 06/18/23 13:18) BLISTERS Medication List - Last Reconciled 06/18/23 by Jennifer Lema PA-C blood pressure monitor (Blood Pressure Kit) As directed buspirone 30 mg PO BID 30 days cabergoline 0.25 mg PO .Weekly cholecalciferol (vitamin D3) 50 mcg PO DAILY 90 days doxepin 10 mg PO DAILY PRN escitalopram oxalate 20 mg PO DAILY hydrocodone-acetaminophen 10-325 mg 1 tab PO .2 to 3 times a day PRN hydroxychloroquine 200 mg PO BID levothyroxine 150 mcg PO DAILY 90 days lidocaine 5% 1 appl topical BID-TID PRN lorazepam 1 mg PO TID PRN 30 days metoprolol tartrate 25 mg PO BID [QUAD CANE As directed] simvastatin 20 mg PO BEDTIME 90 days [teds hose As directed] tizanidine 8 mg (2 x 4 mg) PO Q8H PRN 30 days tramadol 50 mg PO TID PRN 30 days [WRIST BRACES, bilateral (MEDIUM) As directed] HPI HPI Comments History of Present Illness Details She N/V she states that she does not have vomit but more so upchuck of her food or water whatever she intakes. She states that she gets pains in her stomach are now resolved, she does have intermittent constipation, BMs that are balls- never had a colonoscopy- she still states she is not going to have one- she says she has had no sx in the past week-she has no problems- just acid reflux comes on randomly- Her medical hx is unclear- she has episode 07/2022- memory loss, ? stroke- she is anxious,- not focused- she says she has difficulty- do to residential relationship- she is living in [place]- has issues with transportation She says she was to have cardiac stress test- but refused She denies nausea, vomiting, hematemesis, hematochezia, fever or chills PFSH Medical History Overweight (BMI 25.0-29.9) Pituitary macroadenoma HTN (hypertension) Afib Hypokalemia Colonoscopy refused Pure hypercholesterolemia Acquired hypothyroidism Sjogren's syndrome Primary osteoarthritis, right shoulder Obesity (BMI 30-39.9) Depression Sjogren's disease Anemia Impaired fasting glucose Pure hypercholesterolemia COPD (chronic obstructive pulmonary disease) Acquired hypothyroidism Sacral dysfunction Right-sided low back pain with right-sided sciatica Anxiety Surgical History History of right hip replacement Closed displaced fracture of right patella Right carpal tunnel syndrome (~2010) H/O: hysterectomy Family History Father CAD (coronary artery disease) Thyroid disease CVD (cardiovascular disease) Mother CVD (cardiovascular disease) Scleroderma Sister No problems noted. Brother No problems noted. Sister No problems noted. Other Closed displaced fracture of right patella Social History Housing: House Alcohol intake: former Patient Tobacco Use Status: Former Tobacco user e-Cigarette/Vaping Use: Never Used Second Hand Smoke Exposure: Yes Substance Use Type: Marijuana service: No Current occupational status: retired and disabled Cognitive needs: Yes (cane) Hearing needs: No Vision needs: No Review of Systems Const All systems reviewed & are unremarkable except as noted in HPI and below Card Denies chest pain and Denies dyspnea Resp Denies dyspnea GI Denies abdominal pain, Denies hematochezia, Reports constipation, Reports heartburn, Denies nausea and Denies vomiting Psych Reports anxiety, Reports depression, Reports difficulty concentrating, Denies homicidal ideation and Denies suicidal ideation Physical Exam Vital Signs: Last Vital Signs Pulse 66 06/18/23 13:17 BP 144/75 H 06/18/23 13:17 BMI result Body Mass Index 26.7 Const General: comfortable, no acute distress and anxious Nutritional Appearance: overweight Orientation/consciousness: patient oriented x3 Limitations: no limitations Eyes Conjunctivae: conjunctival abnormal (Conjunctiva injected bilaterally no drainage) Resp Effort & Inspection: normal respiratory effort and able to speak in complete sentences Auscultation: clear to auscultation bilaterally, no rhonchi and no wheezes Cardio Rate: regular rate Rhythm: regular rhythm Heart sounds: S1 normal heart sound present and S2 normal heart sound present GI Palpation (GI): Soft to palpation and nontender Auscultation: normal bowel sounds Neuro General: patient oriented x3 Extrem General: Yes full ROM Psych Speech and movement: Pressured speech present Affect: Anxious affect present Attitude: cooperative Judgement: Limited judgement present (Psych) Results Reviewed Results Reviewed: Reviewed labs from November Assessment & Plan Assessment & Plan (1) Nausea & vomiting: Comment: Resolved, describes reflux Code(s): R11.2 - Nausea with vomiting, unspecified Plan: Pantoprazole 40 mg Reflux precautions (2) Colonoscopy refused: Comment: declines labs never seen by me- face appears puffy she denies Benefit versus risk ratio declines, despite missing malignancy Social issues not resolved Code(s): Z53.20 - Procedure and treatment not carried out because of patient's decision for unspecified reasons Plan: If reconsiders will schedule (3) Acid reflux: Comment: Avoid culprits, reflux precautions Code(s): K21.9 - Gastro-esophageal reflux disease without esophagitis Plan: Pantoprazole Plan Pantoprazole 40 mg Bowel regimen Orders: Orders FL upper GI small bowel Today K21.9 - Gastro-esophageal reflux disease without esophagitis, R11.2 - Nausea with vomiting, unspecified Medications: New pantoprazole 40 mg (2 x 20 mg) PO ONCE 30 days 60 tabs 6RF docusate sodium (Colace) 200 mg (2 x 100 mg) PO BEDTIME 60 caps 5RF calcium polycarbophil (FiberCon) 1,250 mg (2 x 625 mg) PO DAILY 30 days 60 tabs 3RF Changed From hydrocodone-acetaminophen 10-325 mg 1 tab PO .2 to 3 times a day 15 days PRN 40 tabs 0RF pain G89.29 - Other chronic pain, M54.41 - Lumbago with sciatica, right side To hydrocodone-acetaminophen 10-325 mg 1 tab PO .2 to 3 times a day PRN pain G89.29 - Other chronic pain, M54.41 - Lumbago with sciatica, right side Patient Instructions: Will follow-up after upper GI series Pantoprazole 40 mg Reflux precaution Bowel regimen-consistent Maintain high-fiber diet Reconsider a colonoscopy Encouraged to call questions or concerns Coding Level of Care Code New Pt Level 3 (88157) Diagnoses Nausea & vomiting R11.2 Colonoscopy refused Z53.20 Acid reflux K21.9 Time Spent (min) 30
[2023-06-18 13:17] VITALS: BP 144/75; PULSE 66; BMI 26.7
== END 2023-06-18 13:54 | disposition home or self-care (01) ==
PROVIDERS: PCP Internal Medicine; Visit Provider Physician Assistant
DX: R11.2 Nausea with vomiting, unspecified (principal); Z53.20 Procedure and treatment not carried out because of patient's decision for unspecified reasons; K21.9 Gastro-esophageal reflux disease without esophagitis
CPT/HCPCS: 99203

== ENCOUNTER → 2023-06-18 13:02 | Outpatient (BNVA) | payer OTHER, SELFPAY | PROVIDERS: PCP Internal Medicine; Visit Provider Physician Assistant ==

== ENCOUNTER 2023-07-15 13:07 | Outpatient (REF) | payer OTHER, MEDICARE, SELFPAY ==
--- NOTE | ~2023-07-15 | MM_ITS ---
EXAMINATION: MM SCREENING DIGITAL BREAST TOMOSYNTHESIS, BILATERAL CLINICAL INFORMATION: Screening. Asymptomatic. COMPARISON: Mammography: 12/21/2016, 06/20/2015, 06/15/2014. TECHNIQUE: Digital breast tomosynthesis is performed in both the craniocaudal and mediolateral oblique views along with computer-aided detection (CAD). Synthesized 2D images are generated from the tomosynthesis. FINDINGS: There are scattered areas of fibroglandular density (ACR BI-RADS breast composition Category b). Post benign biopsy clip noted upper outer left breast middle one third. Vascular calcifications are present. There are no suspicious masses, suspicious grouped calcifications, or areas of architectural distortion in either breast. The parenchymal pattern is stable from prior exams. MM/MM tomosynthesis screening BI IMPRESSION: No mammographic evidence of malignancy. ASSESSMENT: BI-RADS BI-RADS 2 - Benign Findings RECOMMENDATION: Routine annual mammography screening. 1 year F/U This examination should not preclude the clinical evaluation of a suspicious palpable abnormality. This patient's information was entered into a reminder system with a target due date for their next mammogram.
== END 2023-07-15 13:08 | disposition home or self-care (01) ==
LOC: HO.MAMMO 13:07
PROVIDERS: PCP Internal Medicine; Visit Provider Internal Medicine
DX: Z12.31 Encounter for screening mammogram for malignant neoplasm of breast (principal)
CPT/HCPCS: 77063; 77067

== ENCOUNTER → 2023-07-15 13:15 | Outpatient (BNV) | payer OTHER, SELFPAY | PROVIDERS: PCP Internal Medicine; Visit Provider Radiology Diagnostic Radiology | DX: Z12.31 Encounter for screening mammogram for malignant neoplasm of breast (principal) | CPT/HCPCS: 77063; 77067 ==

== ENCOUNTER 2023-07-25 13:32 | Outpatient (AMB) | payer OTHER, MEDICARE, SELFPAY ==
--- NOTE | 2023-07-25 13:36 | MHC.PC.OV ---
Vital Signs 07/25/23 13:37 Height 5 ft 6 in Weight 166 lb 8 oz BMI 26.9 BP 120/86 Blood Pressure Location Lt brachial Position Sitting Pulse 70 Pulse Source Pulse Oximeter Pulse Oximetry (%) 98 Oxygen Delivery Method Room Air Intake Visit Reasons: 3mth f/u Chemistry Technician Required: No Accompanied by: Self / Same As Patient Allergies latex [LATEX] Allergy (Intermediate, Verified 07/25/23 13:55) BLISTERS Medication List - Last Reconciled 07/25/23 by Carlos Mata MD blood pressure monitor (Blood Pressure Kit) As directed buspirone 30 mg PO BID 30 days cabergoline 0.25 mg PO .Weekly calcium polycarbophil (FiberCon) 1,250 mg (2 x 625 mg) PO DAILY 30 days cholecalciferol (vitamin D3) 50 mcg PO DAILY 90 days docusate sodium (Colace) 200 mg (2 x 100 mg) PO BEDTIME doxepin 10 mg PO DAILY PRN escitalopram oxalate 20 mg PO DAILY hydrocodone-acetaminophen 10-325 mg 1 tab PO .2 to 3 times a day PRN 15 days hydrocodone-acetaminophen 10-325 mg 1 tab PO .2 to 3 times a day PRN hydroxychloroquine 200 mg PO BID levothyroxine 150 mcg PO DAILY 90 days lidocaine 5% 1 appl topical BID-TID PRN lorazepam 1 mg PO TID PRN 30 days metoprolol tartrate 25 mg PO BID pantoprazole 40 mg (2 x 20 mg) PO ONCE 30 days [QUAD CANE As directed] simvastatin 20 mg PO BEDTIME 90 days [teds hose As directed] tizanidine 8 mg (2 x 4 mg) PO Q8H PRN 30 days tramadol 50 mg PO TID PRN 30 days [WRIST BRACES, bilateral (MEDIUM) As directed] Tobacco use date assessed: 07/25/23 Fall risk assessment: 2 + Falls in past year Last assessed Fall Risk: 07/25/23 Dental Screening Dental Screen Date: 07/25/23 Did you have a dental visit in the last 12 months?: No Did you have a dental problem in the last 6 months where you did not have access to dental care?: No Was dental information given to patient?: No HPI 3mth f/u HPI Details Patient comes in today for her follow up visit States that she is still experiencing increased pain over her lower back and over multiple joints (chronic) but they remain adequately controlled on her current Rx States that she is trying to switch over to a mail-order pharmacy ([facility]) now for all of her Rx and will need all of her Rx refilled States that she feels okay otherwise She denies any dizziness; still has on and off headaches but states that they have not changed or gotten any worse lately Denies any chest pains, no increased SOB No nausea/vomiting, no abdominal pain Still has on and off trouble swallowing and she is scheduled for some procedures with GI next month for further evaluation No change in bowel habits noted [facility] Medical History Overweight (BMI 25.0-29.9) Pituitary macroadenoma HTN (hypertension) Afib Hypokalemia Colonoscopy refused Pure hypercholesterolemia Acquired hypothyroidism Sjogren's syndrome Primary osteoarthritis, right shoulder Obesity (BMI 30-39.9) Depression Sjogren's disease Anemia Impaired fasting glucose Pure hypercholesterolemia COPD (chronic obstructive pulmonary disease) Acquired hypothyroidism Sacral dysfunction Right-sided low back pain with right-sided sciatica Anxiety Surgical History History of right hip replacement Closed displaced fracture of right patella Right carpal tunnel syndrome (~2010) H/O: hysterectomy Family History Father CAD (coronary artery disease) Thyroid disease CVD (cardiovascular disease) Mother CVD (cardiovascular disease) Scleroderma Sister No problems noted. Brother No problems noted. Sister No problems noted. Other Closed displaced fracture of right patella Social History Housing: House Alcohol intake: former Patient Tobacco Use Status: Former Tobacco user e-Cigarette/Vaping Use: Never Used Second Hand Smoke Exposure: Yes Substance Use Type: Marijuana service: No Current occupational status: retired and disabled Cognitive needs: Yes (cane) Hearing needs: No Vision needs: No Questionnaire PHQ-9 Over the last 2 weeks, how often have you been bothered by any of the following problems? 1. Little interest or pleasure in doing things: not at all 2. Feeling down, depressed, or hopeless: not at all 3. Trouble falling or staying asleep, or sleeping too much: not at all 4. Feeling tired or having little energy: not at all 5. Poor appetite or overeating: not at all 6. Feeling bad about yourself - or that you are a failure or have let yourself or your family down: not at all 7. Trouble concentrating on things, such as reading the newspaper or watching television: not at all 8. Moving or speaking so slowly that other people could have noticed. Or the opposite - being so fidgety or restless that you have been moving around a lot more than usual: not at all 9. Thoughts that you would be better off or of hurting yourself in some way: not at all Total score: 0 Depression Screening Interpretation: Negative (is on Rx for her depression) Depression Screening Done: Yes [id number] - PHQ-9 Billing: Yes Source: Developed by Drs. David Soares, Keiry Rodgers, Donn Walls and colleagues, with an educational violet from [employer]. Thrive Questionnaire Date Thrive assessed: 07/25/23 I am a: Patient What is your living situation today?: I have a steady place to live Within the past 12 months, did the food you bought not last and you didn't have the money to get more?: Never true Within the past 12 months, did you worry whether your food would run out before you got money to buy more?: Never true Do you have trouble paying for medicines?: No Do you have trouble getting transportation to medical appointments?: No Do you have trouble paying your heating and electricity bill?: No Do you have trouble taking care of your child, family member or friend?: No Do you have trouble with day-to-day activities such as bathing, preparing meals, shopping, managing finances, etc.?: No Are you currently unemployed and looking for a job?: No Are you interested in more education?: No Please select the resources that you would like help with: None Currently or been in a relationship where the following occur: no concerns reported AUDIT C Alcohol Use Questionnaire (AUDIT-C) 1. How often do you have a drink containing alcohol?: Never 3. How often do you have six or more drinks on one occasion?: Never Total Score: 0 Score Reviewed/Action Taken: Yes PILY-7 AMB Questionnaire PILY-7 Date PILY - 7 assessed: 07/25/23 Feeling nervous, anxious, or on edge: 0 = Not at all Not being able to stop or control worryin = Not at all Worrying too much about different things: 0 = Not at all Trouble relaxin = Not at all Being so restless that it is hard to sit still: 0 = Not at all Becoming easily annoyed or irritable: 0 = Not at all Feeling afraid as if something awful might happen: 0 = Not at all Total PILY-7 score (0-4 normal; 5-9 mild; 10-14 moderate; 15-21 severe): 0 Source: Developed by Drs. David Soares, Keiry Rodgers, Donn Walls and colleagues, with an educational violet from [employer]. Review of Systems Const Denies chills, Reports difficulty sleeping, Reports fatigue, Denies fever(s) and Reports headache(s) (on and off) ENT Reports dysphagia (on and off), Denies dizziness, Denies otalgia, Reports headache(s) (on and off), Denies neck pain, Denies odynophagia and Denies sore throat Card Denies chest pain, Denies palpitations and Denies dyspnea Resp Denies chest congestion, Denies cough, Denies dyspnea and Denies wheezing GI Denies abdominal pain, Denies constipation, Reports dysphagia (on and off), Denies heartburn, Denies diarrhea, Denies nausea, Denies odynophagia and Denies vomiting Denies difficulty voiding, Denies nocturia and Denies dysuria Musc Details: (+) right leg pain and swelling Reports back pain (over the lower back), Reports arthralgias (involving multiple joints, especially over right shoulder lately) and Denies neck pain Skin/Breast Denies rash Neuro Denies dizziness, Reports headache(s) (on and off) and Reports tremor(s) (patient describes as recurrent shakes due to her anxiety) Psych Reports anxiety (increasing lately) and Reports depression Endo Reports fatigue and Denies palpitations Aller/Immun Denies wheezing Physical exam (Primary Care) Vital Signs: Last Vital Signs Pulse 70 07/25/23 13:37 BP 120/86 07/25/23 13:37 Pulse Ox 98 07/25/23 13:37 Oxygen Delivery Method Room Air 07/25/23 13:37 BMI result Body Mass Index 26.9 Tobacco/Smoking Status: Tobacco use Status Tobacco use date assessed 07/25/23 07/25/23 13:41 Patient Tobacco Use Status Former Tobacco user 07/25/23 13:41 e-Cigarette/Vaping Use Never Used 07/25/23 13:41 PHQ-9: PHQ-9 Score PHQ-9: Total score 0 07/25/23 13:58 Depression Screening Interpretation: Negative (is on Rx for her depression) Thrive Assessment: Date of Thrive Assessment Date Thrive assessed 07/25/23 07/25/23 13:41 Currently or been in a relationship where the following occur: no concerns reported Const General: no acute distress and alert HENMT Ears: TM's normal bilaterally and EAC's normal Throat: Yes posterior oropharynx normal and Yes tonsils normal (no TP congestion) Neck Neck: Yes no lymphadenopathy and Yes supple Thyroid: Thyroid normal Resp Auscultation: clear to auscultation bilaterally, no rales, no wheezes and diminished lung sounds (slightly) Cardio Rate: regular rate Rhythm: regular rhythm Heart sounds: no murmurs GI Palpation (GI): Soft to palpation and nontender Auscultation: normal bowel sounds General: Yes no CVA tenderness Back/Spine/Pelvis Back: no CVA tenderness Thoracic/Lumbar Spine: lumbar spinal tenderness Skin Other: (+) thickening of the skin noted over the thenar and hypothenar eminence of both hands Rashes: no rashes Extrem General: Yes edema (2+, over the right lower extremity) Assessment and Plan Assessment & Plan (1) COPD (chronic obstructive pulmonary disease): Code(s): J44.9 - Chronic obstructive pulmonary disease, unspecified Qualifiers: COPD type: unspecified COPD Qualified Code(s): J44.9 - Chronic obstructive pulmonary disease, unspecified Plan: Stable/controlled lately Continue Spiriva HandiHaler 18 mcg QD and ProAir HFA 2 puffs QID PRN (2) Pure hypercholesterolemia: Code(s): E78.00 - Pure hypercholesterolemia, unspecified Plan: Reinforced low cholesterol diet Continue Simvastatin 20 mg QD Will have patient recheck her labs and fasting lipids in 3 months for follow up (3) Impaired fasting glucose: Code(s): R73.01 - Impaired fasting glucose Plan: Reinforced low calorie diet/exercise as tolerated FBS was normal at 94 mg/dl on her labs done last year in November 2022; in-office HgbA1c was normal at 5.7% when checked back in April 2022 Will recheck these in a few months for follow up (4) Acquired hypothyroidism: Code(s): E03.9 - Hypothyroidism, unspecified Plan: TFTs were normal on her labs done last year Continue Levothyroxine 150 mcg QD Will have patient recheck her TFTs in 3 months for follow up (5) Right-sided low back pain with right-sided sciatica: Code(s): M54.41 - Lumbago with sciatica, right side Qualifiers: Chronicity: chronic Qualified Code(s): M54.41 - Lumbago with sciatica, right side; G89.29 - Other chronic pain Plan: Reinforced activity and weight-lifting restrictions Continue Gabapentin 600 mg 3 times a day Continue Sublette 10-325 mg 1 tablet 2 to 3 times a day as needed, 15 days, # 40 tablets, refills 0 Patient was receiving physical therapy at the beginning of 2019 - states that therapy was helping but this was cut short by the COVID-19 pandemic and she has not resumed PT since as patient does not want to get vaccinated against COVID and she wants to limit her exposure risks Adds that physical therapy is at least a [address] away and she cannot afford the gas money required for her to get to her sessions then (6) Sjogren's disease: Code(s): M35.00 - Sjogren syndrome, unspecified Qualifiers: Sjogren's organ involvement: unspecified organ involvement Qualified Code(s): M35.00 - Sicca syndrome, unspecified Plan: Continue Hydroxychloroquine tablets 200 mg BID Follow up with rheumatology as scheduled (7) Pituitary macroadenoma: Code(s): D35.2 - Benign neoplasm of pituitary gland Plan: Continue Cabergoline 0.25 mg once a week She was seen by neurology for follow up back in April 2023 and was sent for a brain MRI for further evaluation but she does not appear to have had this done yet Follow up with neurology as scheduled (8) Vitamin D deficiency: Code(s): E55.9 - Vitamin D deficiency, unspecified Plan: Continue Vitamin D3 2000 units QD (9) Anxiety: Code(s): F41.9 - Anxiety disorder, unspecified Plan: Continue Lorazepam 1 mg TID PRN, Buspirone 30 mg BID, Escitalopram 20 mg QD and Doxepin 10 mg Q HS (10) Depression: Code(s): F32.9 - Major depressive disorder, single episode, unspecified Qualifiers: Active/Remission status: currently active Depression Type: major depressive disorder Major depression episode severity: unspecified Major depression recurrence: recurrent Qualified Code(s): F33.9 - Major depressive disorder, recurrent, unspecified Plan: Continue Escitalopram 20 mg QD Could not tolerate Mirtazapine (leg cramps) Is also seeing a therapist regularly/weekly - to continue as scheduled (11) Overweight (BMI 25.0-29.9): Code(s): E66.3 - Overweight Plan: Reinforced diet; exercise and weight loss are unrealistic given patient's physical limitations and issues Plan Per request, all of her Rx were refilled (except for her Vicodin) and sent to her mail-order pharmacy Follow up in 3 months Orders: Orders Comprehensive [place]. Panel Fast 10/11/23 E78.00 - Pure hypercholesterolemia, unspecified Lipid Panel 10/11/23 E78.00 - Pure hypercholesterolemia, unspecified Complete Blood Count Auto Diff 10/11/23 D64.9 - Anemia, unspecified UA CC w/rflx Micro + Cult 10/11/23 R30.0 - Dysuria Vitamin D 25-OH Total 10/11/23 E55.9 - Vitamin D deficiency, unspecified Free T4 (Free Thyroxine) 10/11/23 E03.9 - Hypothyroidism, unspecified Prolactin 10/11/23 D35.2 - Benign neoplasm of pituitary gland Thyroid Stimulating Hormone 10/11/23 E03.9 - Hypothyroidism, unspecified Medications: Changed From buspirone 30 mg PO BID 30 days 60 tabs 2RF To buspirone 30 mg PO BID 90 days 180 tabs 1RF From cabergoline 0.25 mg PO .Weekly To cabergoline 0.25 mg (1/2 x 0.5 mg) PO .weekly 3 months 13 tabs 1RF From tramadol 50 mg PO TID 30 days PRN 90 tabs 0RF pain To tramadol 50 mg PO TID 90 days 270 tabs 0RF pain From lorazepam 1 mg PO TID 30 days PRN 90 tabs 0RF anxiety To lorazepam 1 mg PO TID 90 days 270 tabs 0RF anxiety From docusate sodium (Colace) 200 mg (2 x 100 mg) PO BEDTIME 60 caps 5RF To docusate sodium (Colace) 200 mg (2 x 100 mg) PO BEDTIME 90 days PRN 180 caps 3RF constipation From pantoprazole 40 mg (2 x 20 mg) PO ONCE 30 days 60 tabs 6RF To pantoprazole 40 mg PO DAILY 90 days 90 tabs 3RF From tizanidine 8 mg (2 x 4 mg) PO Q8H 30 days PRN 180 tabs 3RF for muscle spasm To tizanidine 8 mg (2 x 4 mg) PO Q8H 90 days 540 tabs 1RF for muscle spasms From metoprolol tartrate 25 mg PO BID 60 tabs 1RF I10 - Essential (primary) hypertension, I48.91 - Unspecified atrial fibrillation To metoprolol tartrate 25 mg PO BID 90 days 180 tabs 1RF I10 - Essential (primary) hypertension, I48.91 - Unspecified atrial fibrillation From hydroxychloroquine 200 mg PO BID 180 tabs 0RF To hydroxychloroquine 200 mg PO BID 90 days 180 tabs 1RF Refilled escitalopram oxalate 20 mg PO DAILY 90 tabs 1RF F41.9 - Anxiety disorder, unspecified levothyroxine 150 mcg PO DAILY 90 days 90 tabs 1RF cholecalciferol (vitamin D3) 50 mcg PO DAILY 90 days 90 caps 3RF E55.9 - Vitamin D deficiency, unspecified simvastatin 20 mg PO BEDTIME 90 days 90 tabs 1RF doxepin 10 mg PO DAILY PRN 90 caps 1RF for itch Coding Level of Care Code Est Pt Level 4 (26975) Diagnoses Chronic obstructive pulmonary disease, unspecified COPD type J44.9 COPD type: unspecified COPD Pure hypercholesterolemia E78.00 Impaired fasting glucose R73.01 Acquired hypothyroidism E03.9 Chronic right-sided low back pain with right-sided sciatica M54.41; G89.29 Chronicity: chronic Sjogren's syndrome, with unspecified organ involvement M35.00 Sjogren's organ involvement: unspecified organ involvement Pituitary macroadenoma D35.2 Vitamin D deficiency E55.9 Anxiety F41.9 Episode of recurrent major depressive disorder, unspecified depression episode severity F33.9 Active/Remission status: currently active Depression Type: major depressive disorder Major depression episode severity: unspecified Major depression recurrence: recurrent Overweight (BMI 25.0-29.9) E66.3
[2023-07-25 13:37] VITALS: BP 120/86; PULSE 70; O2SAT 98; BMI 26.9
== END 2023-07-25 14:14 | disposition home or self-care (01) ==
PROVIDERS: PCP Internal Medicine; Visit Provider Internal Medicine
DX: J44.9 Chronic obstructive pulmonary disease, unspecified (principal); M35.00 Sjogren syndrome, unspecified; D35.2 Benign neoplasm of pituitary gland; F33.9 Major depressive disorder, recurrent, unspecified; E78.00 Pure hypercholesterolemia, unspecified; R73.01 Impaired fasting glucose; E03.9 Hypothyroidism, unspecified; M54.41 Lumbago with sciatica, right side; G89.29 Other chronic pain; E55.9 Vitamin D deficiency, unspecified; F41.9 Anxiety disorder, unspecified; E66.3 Overweight
CPT/HCPCS: 99214

== ENCOUNTER 2023-11-11 12:30 | Outpatient (AMB) | payer MEDICARE, SELFPAY ==
[2023-11-11 12:31] VITALS: BP 132/86; PULSE 69; O2SAT 97; BMI 27.9
--- NOTE | 2023-11-11 12:31 | MHC.PC.OV ---
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 Allergies latex [LATEX] Allergy (Intermediate, Verified 11/11/23 12:53) BLISTERS Medication List - Last Reconciled 11/11/23 by Carlos Mata MD blood pressure monitor (Blood Pressure Kit) As directed buspirone 30 mg PO BID 90 days cabergoline 0.25 mg (1/2 x 0.5 mg) PO .weekly 3 months calcium polycarbophil (FiberCon) 1,250 mg (2 x 625 mg) PO DAILY 30 days cholecalciferol (vitamin D3) 50 mcg PO DAILY 90 days docusate sodium (Colace) 200 mg (2 x 100 mg) PO BEDTIME PRN 90 days doxepin 10 mg PO DAILY PRN escitalopram oxalate 20 mg PO DAILY hydrocodone-acetaminophen 10-325 mg 1 tab PO .2 to 3 times a day PRN 15 days hydrocodone-acetaminophen 10-325 mg 1 tab PO .2 to 3 times a day PRN hydroxychloroquine 200 mg PO BID 90 days levothyroxine 150 mcg PO DAILY 90 days lidocaine 5% 1 appl topical BID-TID PRN lorazepam 1 mg PO TID 90 days metoprolol tartrate 25 mg PO BID 90 days pantoprazole 40 mg PO DAILY 90 days [QUAD CANE As directed] simvastatin 20 mg PO BEDTIME 90 days [teds hose As directed] tizanidine 8 mg (2 x 4 mg) PO Q8H 90 days tramadol 50 mg PO TID 90 days [WRIST BRACES, bilateral (MEDIUM) As directed] Tobacco use date assessed: 11/11/23 Fall risk assessment: No Falls in past year Last assessed Fall Risk: 11/11/23 Dental Screening Dental Screen Date: 07/25/23 HPI 3 MONTH F/U HPI Details Patient comes in today for her follow up visit States that she feels okay She still has occasional headaches but states that they have not gotten any worse lately; she denies any dizziness Denies any chest pains, no increased SOB No nausea/vomiting, no abdominal pain No change in bowel habits noted Still has on and off trouble swallowing - she was scheduled for an upper GI series a couple of months ago for further evaluation but she ended up not going for the test as she admitted that she got scared States that she is still experiencing increased pain over her lower back and over multiple joints (chronic) but they remain adequately controlled on her current Rx Adds that she has been experiencing increasing neck pain lately Needs a few of her Rx refilled She did not get her previously ordered labs done prior to her appointment today [facility] Medical History (Updated 11/11/23 @ 13:45 by Carlos Mata MD) Osteopenia Overweight (BMI 25.0-29.9) Pituitary macroadenoma HTN (hypertension) Afib Hypokalemia Colonoscopy refused Pure hypercholesterolemia Acquired hypothyroidism Sjogren's syndrome Primary osteoarthritis, right shoulder Obesity (BMI 30-39.9) Depression Sjogren's disease Anemia Impaired fasting glucose Pure hypercholesterolemia COPD (chronic obstructive pulmonary disease) Acquired hypothyroidism Sacral dysfunction Right-sided low back pain with right-sided sciatica Anxiety Surgical History History of right hip replacement Closed displaced fracture of right patella Right carpal tunnel syndrome (~2010) H/O: hysterectomy Family History Father CAD (coronary artery disease) Thyroid disease CVD (cardiovascular disease) Mother CVD (cardiovascular disease) Scleroderma Sister No problems noted. Brother No problems noted. Sister No problems noted. Other Closed displaced fracture of right patella Social History Housing: House Alcohol intake: former Patient Tobacco Use Status: Former Tobacco user e-Cigarette/Vaping Use: Never Used Second Hand Smoke Exposure: Yes Substance Use Type: Marijuana service: No Current occupational status: retired and disabled Cognitive needs: Yes (cane) Hearing needs: No Vision needs: No Questionnaire Thrive Questionnaire Date Thrive assessed: 07/25/23 AUDIT C Alcohol Use Questionnaire (AUDIT-C) 1. How often do you have a drink containing alcohol?: Never 3. How often do you have six or more drinks on one occasion?: Never Total Score: 0 Score Reviewed/Action Taken: Yes PILY-7 AMB Questionnaire PILY-7 Date PILY - 7 assessed: 07/25/23 Source: Developed by Drs. David Soares, Keiry Rodgers, Donn Walls and colleagues, with an educational violet from [employer]. Review of Systems Const Denies chills, Reports difficulty sleeping, Reports fatigue, Denies fever(s) and Reports headache(s) (on and off) ENT Reports dysphagia (on and off), Denies dizziness, Denies otalgia, Reports headache(s) (on and off), Reports neck pain (increasing lately), Denies odynophagia and Denies sore throat Card Denies chest pain, Denies palpitations and Denies dyspnea Resp Denies chest congestion, Denies cough, Denies dyspnea and Denies wheezing GI Denies abdominal pain, Denies constipation, Reports dysphagia (on and off), Denies heartburn, Denies diarrhea, Denies nausea, Denies odynophagia and Denies vomiting Denies difficulty voiding, Denies nocturia, Denies dysuria and Denies urinary urgency Musc Details: (+) right leg pain and swelling Reports back pain (over the lower back), Reports arthralgias (involving multiple joints, especially over right shoulder lately) and Reports neck pain (increasing lately) Skin/Breast Denies rash Neuro Denies dizziness, Reports headache(s) (on and off) and Reports tremor(s) (patient describes as recurrent shakes due to her anxiety) Psych Reports anxiety and Reports depression Endo Reports fatigue and Denies palpitations Aller/Immun Denies wheezing Physical exam (Primary Care) Vital Signs: Last Vital Signs Pulse 69 11/11/23 12:31 BP 132/86 11/11/23 12:31 Pulse Ox 97 11/11/23 12:31 Oxygen Delivery Method Room Air 11/11/23 12:31 BMI result Body Mass Index 27.9 Tobacco/Smoking Status: Tobacco use Status Tobacco use date assessed 11/11/23 11/11/23 12:32 Patient Tobacco Use Status Former Tobacco user 11/11/23 12:32 e-Cigarette/Vaping Use Never Used 11/11/23 12:32 Thrive Assessment: Date of Thrive Assessment Date Thrive assessed 07/25/23 11/11/23 12:32 Const General: no acute distress and alert HENMT Ears: TM's normal bilaterally and EAC's normal Throat: Yes posterior oropharynx normal and Yes tonsils normal (no TP congestion) Neck Neck: Yes no lymphadenopathy and Yes tender Thyroid: Thyroid normal Resp Auscultation: no rales, no wheezes and diminished lung sounds (slightly) Cardio Rate: regular rate Rhythm: regular rhythm Heart sounds: no murmurs GI Palpation (GI): Soft to palpation and nontender Auscultation: normal bowel sounds General: Yes no CVA tenderness Back/Spine/Pelvis Back: no CVA tenderness Cervical Spine: Cervical spine tenderness Thoracic/Lumbar Spine: lumbar spinal tenderness Skin Rashes: no rashes Extrem General: No clubbing, No cyanosis and Yes edema (1+, over the right lower extremity) Assessment and Plan Assessment & Plan (1) COPD (chronic obstructive pulmonary disease): Code(s): J44.9 - Chronic obstructive pulmonary disease, unspecified Qualifiers: COPD type: unspecified COPD Qualified Code(s): J44.9 - Chronic obstructive pulmonary disease, unspecified Plan: Stable/controlled lately Continue Spiriva HandiHaler 18 mcg QD and Albuterol HFA 2 puffs QID PRN (2) Pure hypercholesterolemia: Code(s): E78.00 - Pure hypercholesterolemia, unspecified Plan: Patient was again not able to get her follow up labs done prior to her appointment today Reinforced low cholesterol diet - she is cautioned that her cholesterol levels last year increased significantly from her numbers in 2021 so she really should try to get her follow up labs done BEFORE she comes back in a few months for her next follow up appointment Continue Simvastatin 20 mg QD for now Will have patient recheck her labs and fasting lipids in 3 months for follow up - will just have her use her current orders (updated and printed out and handed to patient) for her next lab draw (3) Dysphagia: Code(s): R13.10 - Dysphagia, unspecified Qualifiers: Dysphagia type: unspecified Qualified Code(s): R13.10 - Dysphagia, unspecified Plan: Unknown etiology She was seen by gastroenterology and had an upper GI series with small bowel follow through ordered for further evaluation a few months ago but patient did not go for her procedure - admits that she got scared about what the test might reveal and is hoping that her symptoms may just subside gradually over time Have advised patient that just because she ignores the symptoms does not mean that they will just go away and in case there is something more serious going on in her stomach or esophagus, waiting and doing nothing may not be the wisest option Have encouraged her to reach back out to gastroenterology [place] to see if they can reorder the test or prefer to do it some other way (4) Impaired fasting glucose: Code(s): R73.01 - Impaired fasting glucose Plan: Reinforced low calorie diet/exercise as tolerated FBS was normal at 94 mg/dl on her labs done last year in November 2022; in-office HgbA1c was also normal at 5.7% when checked back in April 2022 Will recheck these in a few months for follow up (5) Acquired hypothyroidism: Code(s): E03.9 - Hypothyroidism, unspecified Plan: Her TFTs were normal on her labs done last year Continue Levothyroxine 150 mcg QD Will have patient recheck her TFTs in 3 months for follow up (6) Right-sided low back pain with right-sided sciatica: Code(s): M54.41 - Lumbago with sciatica, right side Qualifiers: Chronicity: chronic Qualified Code(s): M54.41 - Lumbago with sciatica, right side; G89.29 - Other chronic pain Plan: Reinforced activity and weight-lifting restrictions Continue Gabapentin 600 mg 3 times a day adn Tramadol 50 mg TID PRN for pain (Rx refiled) Continue [place] 10-325 mg 1 tablet 2 to 3 times a day as needed, 15 days, # 40 tablets, refills 0 Patient was receiving physical therapy at the beginning of 2019 - states that therapy was helping but this was cut short by the COVID-19 pandemic and she has not resumed PT since as patient does not want to get vaccinated against COVID and she wants to limit her exposure risks Adds that physical therapy for her is at least a [address] away and she cannot afford the gas money required for her to get to her sessions then (7) Neck pain: Code(s): M54.2 - Cervicalgia Plan: Will send patient for cervical spine x-rays for further evaluation of her recently increasing neck pain (8) Sjogren's disease: Code(s): M35.00 - Sjogren syndrome, unspecified Qualifiers: Sjogren's organ involvement: unspecified organ involvement Qualified Code(s): M35.00 - Sicca syndrome, unspecified Plan: Continue Hydroxychloroquine tablets 200 mg BID Follow up with rheumatology as scheduled (9) Pituitary macroadenoma: Code(s): D35.2 - Benign neoplasm of pituitary gland Plan: Continue Cabergoline 0.25 mg once a week She was seen by neurology for follow up back in April 2023 and was sent for a brain MRI for further evaluation but she does not appear to have had this done yet so far Follow up with neurology as scheduled (10) Vitamin D deficiency: Code(s): E55.9 - Vitamin D deficiency, unspecified Plan: Continue Vitamin D3 2000 units QD (11) Osteopenia: Code(s): M85.80 - Other specified disorders of bone density and structure, unspecified site Qualifiers: Osteopenia location: unspecified Qualified Code(s): M85.80 - Other specified disorders of bone density and structure, unspecified site Plan: Patient is advised that her BMD was last done in 2015 and she should get this rechecked again [facility] for follow up - repeat BMD ordered She is advised to continue with her daily oral calcium and vitamin D supplements Is also supposed to exercise regularly but her activity tolerance is very limited given her multiple issues (12) Anxiety: Code(s): F41.9 - Anxiety disorder, unspecified Plan: Continue Lorazepam 1 mg TID PRN, Buspirone 30 mg BID, Escitalopram 20 mg QD and Doxepin 10 mg Q HS (13) Depression: Code(s): F32.9 - Major depressive disorder, single episode, unspecified Qualifiers: Depression Type: major depressive disorder Major depression recurrence: recurrent Active/Remission status: currently active Major depression episode severity: unspecified Qualified Code(s): F33.9 - Major depressive disorder, recurrent, unspecified Plan: Continue Escitalopram 20 mg QD Could not tolerate Mirtazapine (leg cramps) Is also seeing a therapist regularly/weekly - to continue as scheduled (14) Overweight (BMI 25.0-29.9): Code(s): E66.3 - Overweight Plan: Reinforced diet; exercise and weight loss are unrealistic given patient's physical limitations and issues Plan Follow up in 3 months Orders: Orders XR DEXA axial skeleton Today Z78.0 - Asymptomatic menopausal state XR cervical spine min 6V Today M54.2 - Cervicalgia Medications: Refilled lorazepam 1 mg PO TID 90 days 270 tabs 0RF anxiety levothyroxine 150 mcg PO DAILY 90 days 90 tabs 1RF tramadol 50 mg PO TID 90 days 270 tabs 0RF pain Coding Level of Care Code Est Pt Level 4 (31271) Diagnoses Chronic obstructive pulmonary disease, unspecified COPD type J44.9 COPD type: unspecified COPD Pure hypercholesterolemia E78.00 Dysphagia, unspecified type R13.10 Dysphagia type: unspecified Impaired fasting glucose R73.01 Acquired hypothyroidism E03.9 Chronic right-sided low back pain with right-sided sciatica M54.41; G89.29 Chronicity: chronic Neck pain M54.2 Sjogren's syndrome, with unspecified organ involvement M35.00 Sjogren's organ involvement: unspecified organ involvement Pituitary macroadenoma D35.2 Vitamin D deficiency E55.9 Osteopenia, unspecified location M85.80 Osteopenia location: unspecified Anxiety F41.9 Episode of recurrent major depressive disorder, unspecified depression episode severity F33.9 Depression Type: major depressive disorder Major depression recurrence: recurrent Active/Remission status: currently active Major depression episode severity: unspecified Overweight (BMI 25.0-29.9) E66.3
== END 2023-11-11 13:23 | disposition home or self-care (01) ==
PROVIDERS: PCP Internal Medicine; Visit Provider Internal Medicine
DX: J44.9 Chronic obstructive pulmonary disease, unspecified (principal); M35.00 Sjogren syndrome, unspecified; D35.2 Benign neoplasm of pituitary gland; F33.9 Major depressive disorder, recurrent, unspecified; E78.00 Pure hypercholesterolemia, unspecified; R13.10 Dysphagia, unspecified; R73.01 Impaired fasting glucose; E03.9 Hypothyroidism, unspecified; M54.41 Lumbago with sciatica, right side; G89.29 Other chronic pain; M54.2 Cervicalgia; E55.9 Vitamin D deficiency, unspecified
CPT/HCPCS: 99214

== ENCOUNTER 2023-12-31 12:31 | Outpatient (AMB) | payer MEDICARE, SELFPAY ==
--- NOTE | 2023-12-31 12:46 | A.OFFPC_ITS ---
Vital Signs 12/31/23 12:48 Height 5 ft 6 in Weight 171 lb 0.4 oz BMI 27.6 BP 144/92 H Blood Pressure Location Lt brachial Position Sitting Pulse 63 Pulse Source Pulse Oximeter Pulse Oximetry (%) 98 Oxygen Delivery Method Room Air Intake Visit Reasons: HDF 12/06 Intake Note: Patient is here for hospital discharge follow up. Patient was discharged from [facility] on 12/07/2023 Allergies latex [LATEX] Allergy (Intermediate, Verified 12/31/23 13:58) BLISTERS Medication List - Last Reconciled 12/31/23 by Carlos Mata MD blood pressure monitor (Blood Pressure Kit) As directed buspirone 30 mg PO BID 90 days cabergoline 0.25 mg (1/2 x 0.5 mg) PO .weekly 3 months calcium polycarbophil (FiberCon) 1,250 mg (2 x 625 mg) PO DAILY 30 days cholecalciferol (vitamin D3) 50 mcg PO DAILY 90 days docusate sodium (Colace) 200 mg (2 x 100 mg) PO BEDTIME PRN 90 days doxepin 10 mg PO DAILY PRN escitalopram oxalate 20 mg PO DAILY hydrocodone-acetaminophen 10-325 mg 1 tab PO .2 to 3 times a day PRN 15 days hydrocodone-acetaminophen 10-325 mg 1 tab PO .2 to 3 times a day PRN hydroxychloroquine 200 mg PO BID 90 days levothyroxine 150 mcg PO DAILY 90 days lidocaine 5% 1 appl topical BID-TID PRN lorazepam 1 mg PO TID 90 days metoprolol tartrate 25 mg PO BID 90 days pantoprazole 40 mg PO DAILY 90 days [QUAD CANE As directed] simvastatin 20 mg PO BEDTIME 90 days [teds hose As directed] tizanidine 8 mg (2 x 4 mg) PO Q8H 90 days tramadol 50 mg PO TID 90 days [WRIST BRACES, bilateral (MEDIUM) As directed] Tobacco use date assessed: 11/11/23 Fall risk assessment: 2 + Falls in past year Last assessed Fall Risk: 12/31/23 Dental Screening Dental Screen Date: 07/25/23 HPI HDF 12/06 HPI Details Patient comes in today for her F follow up visit She went to the ER at [facility] late last month on 12/06/2023 for recurrent nausea, vomiting and diarrhea and increasing generalized weakness; she also reports feeling lightheaded at the time Labs done at the time revealed (+) leucocytosis, hypokalemia and elevated serum creatinine and low GFR consistent with JAYCOB Chest x-rays were negative and abdominal and pelvic CT revealed (+) extensive diverticulosis but no diverticulitis, hepatic steatosis, old T12 and L3 compression fractures and old healed right pubic rami fracture Urinalysis done also revealed findings consistent with a UTI She was started on Abx for treatment, with gradual improvement of her symptoms Patient states that she currently feels okay She denies any dizziness but still has on and off headaches Denies any chest pains, no increased SOB No nausea/vomiting, no abdominal pain No change in bowel habits noted PFSH Medical History Osteopenia Overweight (BMI 25.0-29.9) Pituitary macroadenoma HTN (hypertension) Afib Hypokalemia Colonoscopy refused Pure hypercholesterolemia Acquired hypothyroidism Sjogren's syndrome Primary osteoarthritis, right shoulder Obesity (BMI 30-39.9) Depression Sjogren's disease Anemia Impaired fasting glucose Pure hypercholesterolemia COPD (chronic obstructive pulmonary disease) Acquired hypothyroidism Sacral dysfunction Right-sided low back pain with right-sided sciatica Anxiety Surgical History History of right hip replacement Closed displaced fracture of right patella Right carpal tunnel syndrome (~2010) H/O: hysterectomy Family History Father CAD (coronary artery disease) Thyroid disease CVD (cardiovascular disease) Mother CVD (cardiovascular disease) Scleroderma Sister No problems noted. Brother No problems noted. Sister No problems noted. Other Closed displaced fracture of right patella Social History Housing: House Alcohol intake: former Patient Tobacco Use Status: Former Tobacco user e-Cigarette/Vaping Use: Never Used Second Hand Smoke Exposure: Yes Substance Use Type: Marijuana service: No Current occupational status: retired and disabled Cognitive needs: Yes (cane) Hearing needs: No Vision needs: No Questionnaire Thrive Questionnaire Date Thrive assessed: 07/25/23 AUDIT C Alcohol Use Questionnaire (AUDIT-C) 1. How often do you have a drink containing alcohol?: Never 3. How often do you have six or more drinks on one occasion?: Never Total Score: 0 Score Reviewed/Action Taken: Yes PILY-7 AMB Questionnaire PILY-7 Date PILY - 7 assessed: 07/25/23 Source: Developed by Drs. David Soares, Keiry Rodgers, Donn Walls and colleagues, with an educational violet from [employer]. Review of Systems Const Denies chills, Reports difficulty sleeping, Reports fatigue, Denies fever(s) and Reports headache(s) (on and off) ENT Reports dysphagia (on and off), Denies dizziness, Denies otalgia, Reports headache(s) (on and off), Reports neck pain (increasing lately), Denies odynophagia and Denies sore throat Card Denies chest pain, Denies palpitations and Denies dyspnea Resp Denies chest congestion, Denies cough, Denies dyspnea and Denies wheezing GI Denies abdominal pain, Denies constipation, Reports dysphagia (on and off), Denies heartburn, Denies diarrhea, Denies nausea, Denies odynophagia and Denies vomiting Denies difficulty voiding, Denies nocturia, Denies dysuria and Denies urinary urgency Musc Details: (+) right leg pain and swelling Reports back pain (over the lower back), Reports arthralgias (involving multiple joints, especially over right shoulder lately) and Reports neck pain (increasing lately) Skin/Breast Denies rash Neuro Denies dizziness, Reports headache(s) (on and off) and Reports tremor(s) (patient describes as recurrent shakes due to her anxiety) Psych Reports anxiety and Reports depression Endo Reports fatigue and Denies palpitations Aller/Immun Denies wheezing Physical exam (Primary Care) Vital Signs: Last Vital Signs Pulse 63 12/31/23 12:48 BP 144/92 H 12/31/23 12:48 Pulse Ox 98 12/31/23 12:48 Oxygen Delivery Method Room Air 12/31/23 12:48 BMI result Body Mass Index 27.6 Tobacco/Smoking Status: Tobacco use Status Tobacco use date assessed 11/11/23 12/31/23 12:48 Patient Tobacco Use Status Former Tobacco user 12/31/23 12:48 e-Cigarette/Vaping Use Never Used 12/31/23 12:48 Thrive Assessment: Date of Thrive Assessment Date Thrive assessed 07/25/23 12/31/23 12:48 Const General: no acute distress and alert HENMT Ears: TM's normal bilaterally and EAC's normal Throat: Yes posterior oropharynx normal and Yes tonsils normal (no TP congestion) Neck Neck: Yes no lymphadenopathy and Yes tender Thyroid: Thyroid normal Resp Auscultation: no rales, no wheezes and diminished lung sounds (slightly) Cardio Rate: regular rate Rhythm: regular rhythm Heart sounds: no murmurs GI Palpation (GI): Soft to palpation and nontender Auscultation: normal bowel sounds General: Yes no CVA tenderness Back/Spine/Pelvis Back: no CVA tenderness Cervical Spine: Cervical spine tenderness Thoracic/Lumbar Spine: lumbar spinal tenderness Skin Rashes: no rashes Extrem General: No clubbing, No cyanosis and Yes edema (1+, over the right lower extremity) Assessment and Plan Assessment & Plan (1) Recurrent urinary tract infection: Code(s): N39.0 - Urinary tract infection, site not specified Plan: Patient had another bout of UTI recently, which prompted her to go to the ER States that her symptoms have resolved with Abx Tx but she is concerned about getting UTIs often over the past year or so and would like to see a specialist for further evaluation Per request, will refer her to urology (2) Urinary incontinence: Code(s): R32 - Unspecified urinary incontinence Qualifiers: Urinary Incontinence type: unspecified incontinence Qualified Code(s): R32 - Unspecified urinary incontinence Plan: Per request, will refer her to urology for further evaluation and management (3) COPD (chronic obstructive pulmonary disease): Code(s): J44.9 - Chronic obstructive pulmonary disease, unspecified Qualifiers: COPD type: unspecified COPD Qualified Code(s): J44.9 - Chronic obstructive pulmonary disease, unspecified Plan: Stable/controlled lately Continue Spiriva HandiHaler 18 mcg QD and Albuterol HFA 2 puffs QID PRN (4) Pure hypercholesterolemia: Code(s): E78.00 - Pure hypercholesterolemia, unspecified Plan: Reinforced low cholesterol diet - she has been cautioned that her cholesterol levels last year increased significantly from her numbers in 2021 so she really should try to get her follow up labs done BEFORE she comes back in a few months for her next follow up appointment Continue Simvastatin 20 mg QD for now Will have patient recheck her labs and fasting lipids in a couple of months for follow up - will just have her use her current orders (these were previously updated and printed out and handed to patient) for her next lab draw (5) Dysphagia: Code(s): R13.10 - Dysphagia, unspecified Qualifiers: Dysphagia type: unspecified Qualified Code(s): R13.10 - Dysphagia, unspecified Plan: Unknown etiology She was seen by gastroenterology and had an upper GI series with small bowel follow through ordered for further evaluation a few months ago but patient did not go for her procedure - admits that she got scared about what the test might reveal and is hoping that her symptoms may just subside gradually over time Have advised patient that just because she ignores the symptoms does not mean that they will just go away and in case there is something more serious going on in her stomach or esophagus, waiting and doing nothing may not be the wisest option Have encouraged her to reach back out to gastroenterology [place] to see if they can reorder the test or prefer to do it some other way (6) Impaired fasting glucose: Code(s): R73.01 - Impaired fasting glucose Plan: Reinforced low calorie diet/exercise as tolerated FBS was normal at 94 mg/dl on her labs done last year in November 2022; in-office HgbA1c was also normal at 5.7% when checked back in April 2022 Will recheck these in a few months for follow up (7) Acquired hypothyroidism: Code(s): E03.9 - Hypothyroidism, unspecified Plan: Her TFTs were normal on her labs done last year Continue Levothyroxine 150 mcg QD Will have patient recheck her TFTs in a couple of months for follow up (8) Right-sided low back pain with right-sided sciatica: Code(s): M54.41 - Lumbago with sciatica, right side Qualifiers: Chronicity: chronic Qualified Code(s): M54.41 - Lumbago with sciatica, right side; G89.29 - Other chronic pain Plan: Reinforced activity and weight-lifting restrictions Continue Gabapentin 600 mg 3 times a day adn Tramadol 50 mg TID PRN for pain (Rx refiled) Continue [place] 10-325 mg 1 tablet 2 to 3 times a day as needed, 15 days, # 40 tablets, refills 0 Patient was receiving physical therapy at the beginning of 2019 - states that therapy was helping but this was cut short by the COVID-19 pandemic and she has not resumed PT since as patient does not want to get vaccinated against COVID and she wants to limit her exposure risks Adds that physical therapy for her is at least a [address] away and she cannot afford the gas money required for her to get to her sessions then (9) Neck pain: Code(s): M54.2 - Cervicalgia Plan: Patient was sent for cervical spine x-rays for further evaluation of her recently increasing neck pain but she has not yet gotten these done so far (10) Sjogren's disease: Code(s): M35.00 - Sjogren syndrome, unspecified Qualifiers: Sjogren's organ involvement: unspecified organ involvement Qualified Code(s): M35.00 - Sicca syndrome, unspecified Plan: Continue Hydroxychloroquine tablets 200 mg BID Follow up with rheumatology as scheduled (11) Pituitary macroadenoma: Code(s): D35.2 - Benign neoplasm of pituitary gland Plan: Continue Cabergoline 0.25 mg once a week She was seen by neurology for follow up back in April 2023 and was sent for a brain MRI for further evaluation but she does not appear to have had this done yet so far Follow up with neurology as scheduled (12) Vitamin D deficiency: Code(s): E55.9 - Vitamin D deficiency, unspecified Plan: Continue Vitamin D3 2000 units QD (13) Osteopenia: Code(s): M85.80 - Other specified disorders of bone density and structure, unspecified site Qualifiers: Osteopenia location: unspecified Qualified Code(s): M85.80 - Other specified disorders of bone density and structure, unspecified site Plan: Patient is advised that her BMD was last done in 2015 and she should get this rechecked again [facility] for follow up - repeat BMD ordered She is advised to continue with her daily oral calcium and vitamin D supplements Is also supposed to exercise regularly but her activity tolerance is very limited given her multiple issues (14) Anxiety: Code(s): F41.9 - Anxiety disorder, unspecified Plan: Continue Lorazepam 1 mg TID PRN, Buspirone 30 mg BID, Escitalopram 20 mg QD and Doxepin 10 mg Q HS (15) Depression: Code(s): F32.9 - Major depressive disorder, single episode, unspecified Qualifiers: Depression Type: major depressive disorder Major depression recurrence: recurrent Active/Remission status: currently active Major depression episode severity: unspecified Qualified Code(s): F33.9 - Major depressive disorder, recurrent, unspecified Plan: Continue Escitalopram 20 mg QD Could not tolerate Mirtazapine (leg cramps) Is also seeing a therapist regularly/weekly - to continue as scheduled (16) Overweight (BMI 25.0-29.9): Code(s): E66.3 - Overweight Plan: Reinforced diet; exercise and weight loss are unrealistic given patient's physical limitations and issues Plan Follow up as scheduled in February 2024 Orders: Referrals Urology Referral N39.0 - Urinary tract infection, site not specified, R32 - Unspecified urinary incontinence Coding Level of Care Code Est Pt Level 4 (72069) Diagnoses Recurrent urinary tract infection N39.0 Urinary incontinence, unspecified type R32 Urinary Incontinence type: unspecified incontinence Chronic obstructive pulmonary disease, unspecified COPD type J44.9 COPD type: unspecified COPD Pure hypercholesterolemia E78.00 Dysphagia, unspecified type R13.10 Dysphagia type: unspecified Impaired fasting glucose R73.01 Acquired hypothyroidism E03.9 Chronic right-sided low back pain with right-sided sciatica M54.41; G89.29 Chronicity: chronic Neck pain M54.2 Sjogren's syndrome, with unspecified organ involvement M35.00 Sjogren's organ involvement: unspecified organ involvement Pituitary macroadenoma D35.2 Vitamin D deficiency E55.9 Osteopenia, unspecified location M85.80 Osteopenia location: unspecified Anxiety F41.9 Episode of recurrent major depressive disorder, unspecified depression episode severity F33.9 Depression Type: major depressive disorder Major depression recurrence: recurrent Active/Remission status: currently active Major depression episode severity: unspecified Overweight (BMI 25.0-29.9) E66.3
[2023-12-31 12:48] VITALS: BP 144/92; PULSE 63; O2SAT 98; BMI 27.6
== END 2023-12-31 14:14 | disposition home or self-care (01) ==
PROVIDERS: PCP Internal Medicine; Visit Provider Internal Medicine
DX: J44.9 Chronic obstructive pulmonary disease, unspecified (principal); M35.00 Sjogren syndrome, unspecified; D35.2 Benign neoplasm of pituitary gland; F33.9 Major depressive disorder, recurrent, unspecified; N39.0 Urinary tract infection, site not specified; R32 Unspecified urinary incontinence; E78.00 Pure hypercholesterolemia, unspecified; R13.10 Dysphagia, unspecified; R73.01 Impaired fasting glucose; E03.9 Hypothyroidism, unspecified; M54.41 Lumbago with sciatica, right side; G89.29 Other chronic pain
CPT/HCPCS: 99214

== ENCOUNTER 2024-01-28 12:22 | Outpatient (REF) | payer MEDICARE, SELFPAY ==
--- NOTE | ~2024-01-28 | MM_ITS ---
EXAMINATION: BONE DENSITOMETRY CLINICAL INDICATION: Asymptomatic menopausal state. COMPARISON: Previous BD dated 10/31/2015 and baseline BD dated 12/02/2008. TECHNIQUE: Using a [employer] DXA System (software version: 13.1) manufactured by [employer], dual-energy x-ray absorptiometry was performed of the lumbar spine and left hip. The images are of good technical quality. Summary results are attached. FINDINGS: LEFT FEMUR, NECK: Current: BMD 0.430 g/cm2, Z-score -3.2, T-score -4.4, osteoporosis. Prior: BMD 0.753 g/cm2. Baseline: BMD 0.793 g/cm2. LEFT FEMUR, TOTAL: Current: BMD 0.482 g/cm2, Z-score -3.3, T-score -4.2, osteoporosis, 42.8% decrease from previous, 45.2% decrease from baseline (<5% change is not significant). Prior: BMD 0.842 g/cm2. Baseline: BMD 0.879 g/cm2. AP SPINE L1-L4 (excluding L3): The data of L1-L4 has been changed to exclude the L3 vertebral body, because degenerative sclerosis at this level may cause overestimation of lumbar spine density. Current: BMD 1.248 g/cm2, Z-score 1.8, T-score 0.7, normal, 0.2% decrease from previous, 9.0% increase from baseline (<5% change is not significant). Prior: BMD 1.250 g/cm2. Baseline: BMD 1.145 g/cm2. IDENTIFIED RISK FACTORS: Early menopause, secondary osteoporosis, history of fracture (adult), height loss, hysterectomy. HISTORY OF FRACTURE: Femur/hip. MEDICATIONS: None listed. MM/XR DEXA axial skeleton IMPRESSION: 1. DIAGNOSIS: Severe osteoporosis based on the lowest T-score value of -4.4 in the femoral neck and history of fracture applying World Health Organization criteria. 2. 10-YEAR FRACTURE RISK PREDICTION, FRAX: According to the guidelines, FRAX calculation should only be performed on patients in the osteopenia bone density category. Therefore, FRAX was not performed on this patient. 3. Treatment Recommendations: NOF guidelines recommend consideration for treatment in postmenopausal women and men age 50 and older presenting with the following: -A hip or vertebral (clinical or morphometric) fracture. -T-score less than or equal to -2.5 at the femoral neck or spine after appropriate evaluation to exclude secondary causes. -Low bone mass at the hip or spine and a 10-year fracture probability by FRAX of greater than or equal to 3% for hip fracture or greater than or equal to 20% for major osteoporotic fracture based on the [place] adapted WHO algorithm. 4. Other Recommendations: All treatment decisions require clinical judgment and consideration of individual patient factors, including patient preferences, comorbidities, previous drug use, risk factors not captured in the FRAX model (e.g. frailty, falls, vitamin D deficiency, increased bone turnover, interval significant decline in bone density) and possible under or overestimation of fracture risk by FRAX. Additional medical evaluation for secondary cause of low bone mineral density may be appropriate. FUTURE SCAN RECOMMENDATION: People with diagnosed cases of osteoporosis or at high risk for fracture should have regular bone mineral density tests. For patients eligible for Medicare, routine testing is allowed once every 2 years. The testing frequency can be increased to one year for patients who have rapidly progressing disease, those who are receiving or discontinuing medical therapy to restore bone mass, or have additional risk factors.
[2024-01-28 12:52] LABS: MANUAL DIFF FLAG NO
[2024-01-28 14:12] LABS: Basophils Absolute Auto 0.1 X10*3/uL (0.0-0.2); Basophils Percent Auto 1.9 % (0-2); Eosinophils Absolute Auto 0.4 X10*3/uL (0.0-0.4); Eosinophils Percent Auto 5.7 % (0-4); Hematocrit 36.8 % (37.0-47.0); Hemoglobin 11.9 g/dl (12.0-16.0); Imm Gran Abs Auto 0.03 X10*3/uL (0.00-0.03); Imm Gran Pct Auto 0.5 % (0.0-0.4); Lymphocytes Absolute Auto 1.7 X10*3/uL (1.2-4.9); Lymphocytes Percent Auto 26.4 % (20-40); Mean Corpuscular HGB Conc 32.3 g/dl (31.0-35.0); Mean Corpuscular Hemoglobin 28.3 pg (27.0-33.0); Mean Corpuscular Volume 87.4 fL (80.0-98.0); Mean Platelet Volume 10.9 fL (9.4-12.3); Monocytes Absolute Auto 0.6 X10*3/uL (0.1-1.2); Monocytes Percent Auto 8.6 % (2-11); Neutrophils Absolute Auto 3.6 x10*3/uL (2.0-8.3); Neutrophils Percent Auto 56.9 % (45-73); Platelet Count 239 X10*3/uL (160-400); Red Blood Count 4.21 X10*6/uL (4.20-5.50); Red Cell Distribution Width 13.7 % (11.0-16.0); White Blood Count 6.4 X10*3/uL (4.8-10.8)
[2024-01-28 14:52] LABS: Alanine Aminotransferase 7 U/L (0-31); Albumin Level 3.7 g/dL (3.5-5.0); Alkaline Phosphatase 97 U/L (39-117); Anion Gap 11 (12-20); Aspartate Amino Transferase 16 U/L (5-31); Bilirubin Total 0.3 mg/dL (0.0-1.0); Blood Urea Nitrogen 8 mg/dL (9-16); Calcium 9.6 mg/dL (8.4-10.2); Carbon Dioxide 29 mmol/L (22-29); Chloride 103 mmol/L (96-108); Cholesterol 161 mg/dL (<200); Estimated Glomerular Filt Rate > 60; Glucose Fasting 130 mg/dL (60-99); HDL Cholesterol 38 mg/dL (>40); LDL Cholesterol Calculated 93 mg/dL (<100); Potassium 4.2 mmol/L (3.3-5.1); Sodium 139 mmol/L (135-145); Total Protein 7.3 g/dL (6.5-8.0); Triglycerides 151 mg/dL (<150)
[2024-01-28 15:01] LABS: Free T4 (Free Thyroxine) 1.18 ng/dL (0.71-1.85); Thyroid Stimulating Hormone 0.12 uIU/mL (0.32-4.0); Vitamin D 25-OH Total 25.8 ng/mL (>30)
[2024-01-28 17:28] LABS: Appearance Urine Clear; Color Urine Yellow; Glucose Urine UA Negative (Negative); Leukocyte Esterase Urine Negative (Negative); Nitrite Urine Negative (Negative); Urine Blood Negative (Negative); Urine Ketones Negative (Negative); Urine Protein Trace mg/dL (Neg-Trace)
[2024-01-29 14:12] LABS: Prolactin 196.5 ng/mL
== END 2024-01-28 12:23 | disposition home or self-care (01) ==
LOC: HO.MAMMO 12:22
PROVIDERS: PCP Internal Medicine; Visit Provider Internal Medicine
DX: Z13.820 Encounter for screening for osteoporosis (principal); Z78.0 Asymptomatic menopausal state; D64.9 Anemia, unspecified; E78.00 Pure hypercholesterolemia, unspecified; E03.9 Hypothyroidism, unspecified; D35.2 Benign neoplasm of pituitary gland; R30.0 Dysuria; E55.9 Vitamin D deficiency, unspecified
CPT/HCPCS: 36415; 77080; 80053; 80061; 81003; 82306; 84146; 84439; 84443; 85025

== ENCOUNTER 2024-02-13 14:29 | Outpatient (AMB) | payer MEDICARE, SELFPAY ==
--- NOTE | 2024-02-13 14:32 | A.OFFPC_ITS ---
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: No Accompanied by: Self / Same As Patient Allergies latex [LATEX] Allergy (Intermediate, Verified 02/13/24 15:13) BLISTERS Medication List - Last Reconciled 02/13/24 by Carlos Mata MD blood pressure monitor (Blood Pressure Kit) As directed buspirone 30 mg PO BID 90 days cabergoline 0.25 mg (1/2 x 0.5 mg) PO .weekly 3 months calcium polycarbophil (FiberCon) 1,250 mg (2 x 625 mg) PO DAILY 30 days cholecalciferol (vitamin D3) 50 mcg PO DAILY 90 days docusate sodium (Colace) 200 mg (2 x 100 mg) PO BEDTIME PRN 90 days doxepin 10 mg PO DAILY PRN escitalopram oxalate 20 mg PO DAILY hydrocodone-acetaminophen 10-325 mg 1 tab PO .2 to 3 times a day PRN 15 days hydroxychloroquine 200 mg PO BID 90 days levothyroxine 150 mcg PO DAILY 90 days lidocaine 5% 1 appl topical BID-TID PRN lorazepam 1 mg PO TID 90 days metoprolol tartrate 25 mg PO BID 90 days pantoprazole 40 mg PO DAILY 90 days [QUAD CANE As directed] simvastatin 20 mg PO BEDTIME 90 days [teds hose As directed] tizanidine 8 mg (2 x 4 mg) PO Q8H 90 days tramadol 50 mg PO TID 90 days [WRIST BRACES, bilateral (MEDIUM) As directed] Tobacco use date assessed: 11/11/23 Fall risk assessment: No Falls in past year Last assessed Fall Risk: 02/13/24 Dental Screening Dental Screen Date: 07/25/23 HPI 3mof\u HPI Details Patient comes in today for her follow up visit States that she currently feels okay She still has on and off headaches but she denies any dizziness States that she needs glasses to be able to read but denies any acute changes in her vision or any visual field defects lately She denies any chest pains, no increased SOB No nausea/vomiting, no abdominal pain No change in bowel habits noted She still has increased pain over her lower back and over multiple joints (chronic), including her hips and pelvis, but states that they remain adequately controlled on her current Rx She had her follow up labs done a couple of weeks ago - to discuss her results [facility] Medical History Osteopenia Overweight (BMI 25.0-29.9) Pituitary macroadenoma HTN (hypertension) Afib Hypokalemia Colonoscopy refused Pure hypercholesterolemia Acquired hypothyroidism Sjogren's syndrome Primary osteoarthritis, right shoulder Obesity (BMI 30-39.9) Depression Sjogren's disease Anemia Impaired fasting glucose Pure hypercholesterolemia COPD (chronic obstructive pulmonary disease) Acquired hypothyroidism Sacral dysfunction Right-sided low back pain with right-sided sciatica Anxiety Surgical History History of right hip replacement Closed displaced fracture of right patella Right carpal tunnel syndrome (~2010) H/O: hysterectomy Family History Father CAD (coronary artery disease) Thyroid disease CVD (cardiovascular disease) Mother CVD (cardiovascular disease) Scleroderma Sister No problems noted. Brother No problems noted. Sister No problems noted. Other Closed displaced fracture of right patella Social History Housing: House Alcohol intake: former Patient Tobacco Use Status: Former Tobacco user e-Cigarette/Vaping Use: Never Used Second Hand Smoke Exposure: Yes Substance Use Type: Marijuana service: No Current occupational status: retired and disabled Cognitive needs: Yes (cane) Hearing needs: No Vision needs: No Questionnaire Thrive Questionnaire Date Thrive assessed: 07/25/23 PILY-7 AMB Questionnaire PILY-7 Date PILY - 7 assessed: 07/25/23 Source: Developed by Drs. David Soares, Keiry Rodgers, Donn Walls and colleagues, with an educational violet from [employer]. Review of Systems Const Denies chills, Reports difficulty sleeping, Reports fatigue, Denies fever(s) and Reports headache(s) (on and off) Eyes Reports blurry vision, Denies diplopia, Denies loss of peripheral vision and Denies other visual disturbances ENT Reports dysphagia (on and off), Denies dizziness, Denies otalgia, Reports headache(s) (on and off), Reports neck pain (increasing lately), Denies odynophagia and Denies sore throat Card Denies chest pain, Denies palpitations and Denies dyspnea Resp Denies chest congestion, Denies cough, Denies dyspnea and Denies wheezing GI Denies abdominal pain, Denies constipation, Reports dysphagia (on and off), Denies heartburn, Denies diarrhea, Denies nausea, Denies odynophagia and Denies vomiting Denies difficulty voiding, Denies nocturia, Denies dysuria and Denies urinary urgency Musc Details: (+) right leg pain and swelling Reports back pain (over the lower back), Reports arthralgias (involving multiple joints, including right shoulder and both hips) and Reports neck pain (increasing lately) Skin/Breast Denies rash Neuro Denies dizziness, Reports headache(s) (on and off) and Reports tremor(s) (patient describes as recurrent shakes due to her anxiety) Psych Reports anxiety and Reports depression Endo Reports fatigue and Denies palpitations Aller/Immun Denies wheezing Physical exam (Primary Care) Vital Signs: Last Vital Signs Pulse 62 02/13/24 14:37 BP 126/70 02/13/24 14:37 Pulse Ox 99 02/13/24 14:37 Oxygen Delivery Method Room Air 02/13/24 14:37 BMI result Body Mass Index 27.6 Tobacco/Smoking Status: Tobacco use Status Tobacco use date assessed 11/11/23 02/13/24 14:33 Patient Tobacco Use Status Former Tobacco user 02/13/24 14:33 e-Cigarette/Vaping Use Never Used 02/13/24 14:33 Thrive Assessment: Date of Thrive Assessment Date Thrive assessed 07/25/23 02/13/24 14:33 Const General: no acute distress and alert HENMT Ears: TM's normal bilaterally and EAC's normal Throat: Yes posterior oropharynx normal and Yes tonsils normal (no TP congestion) Eyes Pupils: Equal, round and reactive pupils present EOM: EOMs intact bilaterally Neck Neck: Yes no lymphadenopathy and Yes tender Thyroid: Thyroid normal Resp Auscultation: no rales, no wheezes and diminished lung sounds (slightly) Cardio Rate: regular rate Rhythm: regular rhythm Heart sounds: no murmurs GI Palpation (GI): Soft to palpation and nontender Auscultation: normal bowel sounds General: Yes no CVA tenderness Back/Spine/Pelvis Back: no CVA tenderness Cervical Spine: Cervical spine tenderness Thoracic/Lumbar Spine: lumbar spinal tenderness Skin Rashes: no rashes Neuro Cranial nerves: Yes Equal, round and reactive pupils present Extrem General: No clubbing, No cyanosis and Yes edema (1+, over the right lower extremity) Results AMB Hemoglobin A1c AMB Hemoglobin A1c 5.3 % Last Edit by SHARITA Velasquez on 02/13/24 14:45 Results Reviewed Results Reviewed: Laboratory Last Values Hgb A1c (Clinic) 5.3 % (4.0-6.0) 02/13/24 14:31 Laboratory Tests 01/28/24 01/28/24 12:49 12:51 WBC 6.4 Hgb 11.9 L Hct 36.8 L Plt Count 239 Sodium 139 Potassium 4.2 Creatinine 0.84 Estimated GFR > 60 Fasting Glucose 130 H Calcium 9.6 AST 16 ALT 7 Triglycerides 151 H Cholesterol 161 LDL Cholesterol, Calc 93 HDL Cholesterol 38 L 25-OH Vitamin D Total 25.8 L TSH 0.12 L Free T4 1.18 Prolactin 196.5 H Urine pH 6.0 Ur Specific [place] 1.010 Urine Protein Trace Urine Glucose (UA) Negative Urine Blood Negative Urine Nitrite Negative Ur Leukocyte Esterase Negative Assessment and Plan Assessment & Plan (1) Pituitary macroadenoma: Code(s): D35.2 - Benign neoplasm of pituitary gland Plan: She was on Cabergoline 0.25 mg once a week previously but she stopped taking it a few months ago when her last Rx ran out She was seen by neurology for follow up back in April 2023 - MRI showed a significant decrease in the size of a large sellar and suprasellar mass consistent with a pituitary macroadenoma She also had a prolactin level done a couple of weeks ago that came back significantly elevated at 196.5 ng/ml Will refer her to endocrinology for further evaluation and management of her pituitary macroadenoma and hyperprolactinemia Follow up also with neurology as scheduled (2) COPD (chronic obstructive pulmonary disease): Code(s): J44.9 - Chronic obstructive pulmonary disease, unspecified Qualifiers: COPD type: unspecified COPD Qualified Code(s): J44.9 - Chronic obstructive pulmonary disease, unspecified Plan: Stable/controlled lately Continue Spiriva HandiHaler 18 mcg QD and Albuterol HFA 2 puffs QID PRN (3) Pure hypercholesterolemia: Code(s): E78.00 - Pure hypercholesterolemia, unspecified Plan: Results of her labs done a couple of weeks ago reviewed and discussed with patient - is advised that her cholesterol levels have improved slightly from last year Reinforced low cholesterol diet Continue Simvastatin 20 mg QD Will have patient recheck her labs and fasting lipids in 3 months for follow up (4) Dysphagia: Code(s): R13.10 - Dysphagia, unspecified Qualifiers: Dysphagia type: unspecified Qualified Code(s): R13.10 - Dysphagia, unspecified Plan: Unknown etiology She was seen by gastroenterology and had an upper GI series with small bowel follow through ordered for further evaluation a few months ago but patient did not go for her procedure - admits that she got scared about what the test might reveal and is hoping that her symptoms may just subside gradually over time Have encouraged her to reach back out to gastroenterology [place] to see if they can reorder the test or if they prefer to do it some other way (5) Impaired fasting glucose: Code(s): R73.01 - Impaired fasting glucose Plan: Reinforced low calorie diet/exercise as tolerated Her FBS was elevated at 130 mg/dl on her labs done a couple of weeks ago Her in-office HgbA1c done today is normal at 5.3% (it was also normal at 5.7% when previously checked in April 2022) (6) Acquired hypothyroidism: Code(s): E03.9 - Hypothyroidism, unspecified Plan: Her TFTs were normal on her labs done a couple of weeks ago Continue Levothyroxine 150 mcg QD Will have patient recheck her TFTs in 3 months for follow up (7) Right-sided low back pain with right-sided sciatica: Code(s): M54.41 - Lumbago with sciatica, right side Qualifiers: Chronicity: chronic Qualified Code(s): M54.41 - Lumbago with sciatica, right side; G89.29 - Other chronic pain Plan: Reinforced activity and weight-lifting restrictions Continue Gabapentin 600 mg 3 times a day adn Tramadol 50 mg TID PRN for pain (Rx refiled) Continue [place] 10-325 mg 1 tablet 2 to 3 times a day as needed, 15 days, # 40 tablets, refills 0 Patient was receiving physical therapy at the beginning of 2019 - states that therapy was helping but this was cut short by the COVID-19 pandemic and she has not resumed PT since as patient does not want to get vaccinated against COVID and she wants to limit her exposure risks Adds that physical therapy for her is at least a [address] away and she cannot afford the gas money required for her to get to her sessions then (8) Neck pain: Code(s): M54.2 - Cervicalgia Plan: She was sent for cervical spine x-rays for further evaluation of her recently increasing neck pain but she has not gotten this done yet so far (9) Sjogren's disease: Code(s): M35.00 - Sjogren syndrome, unspecified Qualifiers: Sjogren's organ involvement: unspecified organ involvement Qualified Code(s): M35.00 - Sicca syndrome, unspecified Plan: Continue Hydroxychloroquine tablets 200 mg BID Follow up with rheumatology as scheduled (10) Vitamin D deficiency: Code(s): E55.9 - Vitamin D deficiency, unspecified Plan: Continue Vitamin D3 2000 units QD (11) Osteoporosis: Code(s): M81.0 - Age-related osteoporosis without current pathological fracture Qualifiers: Osteoporosis type: age-related Presence of current pathological fracture: with current pathological fracture Encounter type: sequela Qualified Code(s): M80.00XS - Age-related osteoporosis with current pathological fracture, unspecified site, sequela Plan: Her repeat BMD done a couple of weeks ago on 01/28/2024 revealed (+) severe osteoporosis based on the lowest T-score value of -4.4 in the femoral neck and history of fracture Her BMD in the left femur has declined significantly from her previous BMD; BMD in the AP spine is unchanged from previous Fall precautions reinforced She is also advised to continue with her daily oral calcium and vitamin D supplements Is also supposed to exercise regularly but her activity tolerance is very limited given her multiple issues Will refer her as well to endocrinology for further evaluation and management of this issue (12) Anxiety: Code(s): F41.9 - Anxiety disorder, unspecified Plan: Continue Lorazepam 1 mg TID PRN, Buspirone 30 mg BID, Escitalopram 20 mg QD and Doxepin 10 mg Q HS (13) Depression: Code(s): F32.9 - Major depressive disorder, single episode, unspecified Qualifiers: Depression Type: major depressive disorder Major depression recurrence: recurrent Active/Remission status: currently active Major depression episode severity: unspecified Qualified Code(s): F33.9 - Major depressive disorder, recurrent, unspecified Plan: Continue Escitalopram 20 mg QD She could not tolerate Mirtazapine (leg cramps) Is also seeing a therapist regularly/weekly - to continue as scheduled (14) Overweight (BMI 25.0-29.9): Code(s): E66.3 - Overweight Plan: Reinforced diet; exercise and weight loss are unrealistic given patient's physical limitations and issues Plan Follow up in 3 months Orders: Orders AMB Hemoglobin A1c Today Z13.1 - Encounter for screening for diabetes mellitus Lipid Panel 3 Months E78.00 - Pure hypercholesterolemia, unspecified Free T4 (Free Thyroxine) 3 Months E03.9 - Hypothyroidism, unspecified UA CC w/rflx Micro + Cult 3 Months R30.0 - Dysuria Vitamin D 25-OH Total 3 Months E55.9 - Vitamin D deficiency, unspecified Complete Blood Count Auto Diff 3 Months D64.9 - Anemia, unspecified Comprehensive [place]. Panel Fast 3 Months E78.00 - Pure hypercholesterolemia, unspecified Thyroid Stimulating Hormone 3 Months E03.9 - Hypothyroidism, unspecified Referrals Endocrinology Referral D35.2 - Benign neoplasm of pituitary gland, E23.6 - Other disorders of pituitary gland, M81.0 - Age-related osteoporosis without current pathological fracture Coding Level of Care Code Est Pt Level 4 (63283) Complex EM visit Add On G2211 Diagnoses Pituitary macroadenoma D35.2 Chronic obstructive pulmonary disease, unspecified COPD type J44.9 COPD type: unspecified COPD Pure hypercholesterolemia E78.00 Dysphagia, unspecified type R13.10 Dysphagia type: unspecified Impaired fasting glucose R73.01 Acquired hypothyroidism E03.9 Chronic right-sided low back pain with right-sided sciatica M54.41; G89.29 Chronicity: chronic Neck pain M54.2 Sjogren's syndrome, with unspecified organ involvement M35.00 Sjogren's organ involvement: unspecified organ involvement Vitamin D deficiency E55.9 Age-related osteoporosis with current pathological fracture, sequela M80.00XS Osteoporosis type: age-related Presence of current pathological fracture: with current pathological fracture Encounter type: sequela Anxiety F41.9 Episode of recurrent major depressive disorder, unspecified depression episode severity F33.9 Depression Type: major depressive disorder Major depression recurrence: recurrent Active/Remission status: currently active Major depression episode severity: unspecified Overweight (BMI 25.0-29.9) E66.3
[2024-02-13 14:37] VITALS: BP 126/70; PULSE 62; O2SAT 99; BMI 27.6
== END 2024-02-13 15:12 | disposition home or self-care (01) ==
PROVIDERS: PCP Internal Medicine; Visit Provider Internal Medicine
DX: D35.2 Benign neoplasm of pituitary gland (principal); J44.9 Chronic obstructive pulmonary disease, unspecified; E78.00 Pure hypercholesterolemia, unspecified; R13.10 Dysphagia, unspecified; R73.01 Impaired fasting glucose; F33.9 Major depressive disorder, recurrent, unspecified; M35.00 Sjogren syndrome, unspecified; E03.9 Hypothyroidism, unspecified; M54.41 Lumbago with sciatica, right side; G89.29 Other chronic pain; M54.2 Cervicalgia; E55.9 Vitamin D deficiency, unspecified; M80.00XS Age-related osteoporosis with current pathological fracture, unspecified site, sequela; F41.9 Anxiety disorder, unspecified; E66.3 Overweight; Z13.1 Encounter for screening for diabetes mellitus
CPT/HCPCS: 83036; 99214; G2211

== ENCOUNTER 2024-03-10 09:05 | Outpatient (REF) | payer MEDICARE, SELFPAY ==
--- NOTE | ~2024-03-10 | FL_ITS ---
EXAMINATION: XR FLUOROSCOPY UPPER GI WITH SMALL BOWEL SERIES CLINICAL INFORMATION: Nausea/vomiting. Dysphagia. COMPARISON: None TECHNIQUE: Fluoroscopic air contrast upper GI examination was performed utilizing standard techniques with thin and thick barium and effervescent granules. Numerous spot images were obtained. FINDINGS: Lateral cine images of the oropharynx and hypopharynx demonstrate normal swallow mechanism with normal epiglottic inversion and soft palate elevation. There is trace laryngeal penetration with thick barium. No tracheal penetration, glottic or subglottic aspiration identified. No nasopharyngeal reflux present. Hypopharyngeal structures appear normal without evidence of mass or diverticulum. Mild cricopharyngeal achalasia is present. Dual and single contrast images of the esophagus demonstrate a normal caliber and contour. The esophageal mucosa has a granular appearance, suggestive of esophagitis. No evidence of mass, or ulcerations identified. There is to and fro motion of the barium column, with nonpropulsive tertiary contractions noted throughout the esophagus. There is mild narrowing of the GE junction which may represent achalasia, or benign stricture. No evidence of hiatus hernia identified. A small amount of gastroesophageal reflux is observed in the distal esophagus. Dual contrast and single contrast images of the stomach demonstrated a normal contour. The gastric folds have a thickened appearance, suggestive of gastritis. There are multiple areas of contrast pooling in the fundus and body of the stomach that may represent small superficial apthous ulcers. No masses are present. Contrast freely passed into the gastric antrum and duodenal bulb without delay. SMALL BOWEL SERIES: Monitoring Analyst imaging demonstrates a moderate levoconvex lumbar scoliosis and degenerative spondylosis. Total right hip arthroplasty in place. Old healed fractures of the superior and inferior right pubic rami. Degenerative changes of both SI joints. Lung bases appear clear. No dilated loops of bowel. Mild residual fecal material throughout the colon. Single and air-contrast images of the duodenal bulb demonstrate no abnormality. The duodenal folds have a thickened appearance suggestive of enteritis. The small bowel has a normal fold pattern and caliber. There are no strictures, masses, or dilated loops present. Contrast is observed in the right colon after 120 minutes. The terminal ileum has a normal appearance. FLUOROSCOPY TIME: 5 minutes 5 seconds. Number of Spot Images: 9 Number of Cine: 17 DOSE AREA PRODUCT: [id number] uGy-m2 (microgray-meter squared) FL/FL upper GI small bowel IMPRESSION: 1. Trace laryngeal penetration with thick barium. 2. Mild cricopharyngeal achalasia. 3. Granular appearance of the esophageal mucosa, suggestive of esophagitis. 4. Esophageal dysmotility. 5. Mild narrowing of the GE junction, which may represent achalasia or a benign stricture. Recommend correlation with EGD. 6. Mild gastroesophageal reflux. 7. Thickened appearance of the gastric rugal folds. In addition, there are multiple areas of contrast pooling in the fundus and body of the stomach. These findings are suggestive of erosive gastritis. Recommend correlation with EGD. 8. Thickened appearance of the duodenal folds, suggestive of enteritis. 9. Unremarkable small bowel series. Contrast is observed in the right colon after 120 minutes. This procedure was performed by Stiven Jimenez PA-C, and supervised by Dr. Estrada Electronically signed by: Caleb Estrada MD 03/11/2024 03:40 PM EDT
== END 2024-03-10 09:06 | disposition home or self-care (01) ==
LOC: HO.XRAY 09:05
PROVIDERS: PCP Internal Medicine; Visit Provider Physician Assistant
DX: R11.2 Nausea with vomiting, unspecified (principal); K21.9 Gastro-esophageal reflux disease without esophagitis
CPT/HCPCS: 74240; 74248

== ENCOUNTER → 2024-03-10 09:06 | Outpatient (BNV) | payer MEDICARE, SELFPAY | PROVIDERS: PCP Internal Medicine; Visit Provider Radiology Diagnostic Radiology | DX: R13.10 Dysphagia, unspecified (principal); R11.2 Nausea with vomiting, unspecified | CPT/HCPCS: 74246; 74248 ==

== ENCOUNTER 2024-05-28 13:28 | Outpatient (AMB) | payer MEDICARE, SELFPAY ==
[2024-05-28 14:45] VITALS: BP 132/90; PULSE 65; O2SAT 97; BMI 27.5
--- NOTE | 2024-05-28 14:45 | MHC.PC.OV ---
Vital Signs 05/28/24 14:45 Height 5 ft 6 in Weight 170 lb 4 oz BMI 27.5 BP 132/90 H Blood Pressure Location Lt brachial Position Sitting Pulse 65 Pulse Source Pulse Oximeter Pulse Oximetry (%) 97 Oxygen Delivery Method Room Air Intake Visit Reasons: 3mth f/u Template Fitter Required: No Accompanied by: Self / Same As Patient Allergies latex [LATEX] Allergy (Intermediate, Verified 05/28/24 15:25) BLISTERS Medication List - Last Reconciled 05/28/24 by Carlos Mata MD apixaban (Eliquis) 5 mg PO BID blood pressure monitor (Blood Pressure Kit) As directed buspirone 30 mg PO BID 90 days cabergoline 0.25 mg (1/2 x 0.5 mg) PO .weekly 3 months calcium polycarbophil (FiberCon) 1,250 mg (2 x 625 mg) PO DAILY 30 days cholecalciferol (vitamin D3) 50 mcg PO DAILY 90 days docusate sodium (Colace) 200 mg (2 x 100 mg) PO BEDTIME PRN 90 days doxepin 10 mg PO DAILY PRN escitalopram oxalate 20 mg PO DAILY hydrocodone-acetaminophen 10-325 mg 1 tab PO .2 to 3 times a day PRN 15 days hydroxychloroquine 200 mg PO BID 90 days levothyroxine 150 mcg PO DAILY 90 days lidocaine 5% 1 appl topical BID-TID PRN lorazepam 1 mg PO TID 90 days metoprolol tartrate 25 mg PO BID 90 days pantoprazole 40 mg PO DAILY 90 days [QUAD CANE As directed] simvastatin 20 mg PO BEDTIME 90 days [teds hose As directed] tizanidine 8 mg (2 x 4 mg) PO Q8H 90 days tramadol 50 mg PO TID 90 days [WRIST BRACES, bilateral (MEDIUM) As directed] Tobacco use date assessed: 05/28/24 Fall risk assessment: 2 + Falls in past year Last assessed Fall Risk: 05/28/24 Dental Screening Dental Screen Date: 05/28/24 Did you have a dental visit in the last 12 months?: No Did you have a dental problem in the last 6 months where you did not have access to dental care?: No Was dental information given to patient?: No HPI 3mth f/u HPI Details Patient comes in today for her follow up visit She was admitted to [facility] for a few days last month after she presented to the ER with intractable nausea and vomiting and epigastric pain She was found to have a low-grade fever of 99.9 degrees, with sinus tachycardia at 100 beats per minute with PVCs and elevated blood pressure at 176/119 mm on initial presentation Initial workups revealed an elevated WBC count of 24,000, hypokalemia with serum potassium of 2.9 and an elevated anion gap metabolic acidosis; her magnesium level was low at 1.3, lactate was initially elevated at 7.3 with an elevated troponin level of 37 She was subsequently admitted for medical management During her hospital stay, she apparently developed atrial fibrillation with rapid ventricular response requiring diltiazem drip She was given some IV fluids for hydration and her electrolytes were replaced She was later started on Metoprolol 25 mg twice a day and she was maintained in normal sinus rhythm throughout her hospital stay Has symptoms gradually improved with medical management Patient also admitted to smoking marijuana approximately 5 to 7 times a day to help control her pain and the possibility of cannabis hyperemesis syndrome should be entertained if her symptoms recur even though patient claims that she has been smoking marijuana for a long time now without any symptoms She was eventually discharged home with instructions to follow-up with the PCP; is currently on Eliquis and needs her Rx refilled if she is to continue on Apixaban Patient states that she has not had any recurrence of her symptoms since her discharge from the hospital States that she has not had any further labs done since her discharge and she brought in a copy of her most recent hospital labs today States that she feels okay and denies any dizziness although she still has on and off headaches Denies any chest pains, no increased shortness of breath; states that she has not had any episodes of palpitations since her discharge from the hospital last month She still has occasional nausea but she's had no recurrence of her vomiting; she has not had any recurrence of abdominal pain lately No change in bowel habits noted [facility] Medical History (Updated 05/29/24 @ 20:50 by Carlos Mata MD) Esophagitis Atrial fibrillation Osteoporosis Overweight (BMI 25.0-29.9) Pituitary macroadenoma HTN (hypertension) Hypokalemia Colonoscopy refused Pure hypercholesterolemia Acquired hypothyroidism Sjogren's syndrome Primary osteoarthritis, right shoulder Obesity (BMI 30-39.9) Depression Sjogren's disease Anemia Impaired fasting glucose Pure hypercholesterolemia COPD (chronic obstructive pulmonary disease) Acquired hypothyroidism Sacral dysfunction Right-sided low back pain with right-sided sciatica Anxiety Surgical History History of right hip replacement Closed displaced fracture of right patella Right carpal tunnel syndrome (~2010) H/O: hysterectomy Family History Father CAD (coronary artery disease) Thyroid disease CVD (cardiovascular disease) Mother CVD (cardiovascular disease) Scleroderma Sister No problems noted. Brother No problems noted. Sister No problems noted. Other Closed displaced fracture of right patella Social History Housing: House Alcohol intake: former Patient Tobacco Use Status: Former Tobacco user e-Cigarette/Vaping Use: Never Used Second Hand Smoke Exposure: Yes Substance Use Type: Marijuana service: No Current occupational status: retired and disabled Cognitive needs: Yes (cane) Hearing needs: No Vision needs: No Questionnaire PHQ-9 Over the last 2 weeks, how often have you been bothered by any of the following problems? 1. Little interest or pleasure in doing things: not at all 2. Feeling down, depressed, or hopeless: not at all 3. Trouble falling or staying asleep, or sleeping too much: not at all 4. Feeling tired or having little energy: not at all 5. Poor appetite or overeating: not at all 6. Feeling bad about yourself - or that you are a failure or have let yourself or your family down: not at all 7. Trouble concentrating on things, such as reading the newspaper or watching television: not at all 8. Moving or speaking so slowly that other people could have noticed. Or the opposite - being so fidgety or restless that you have been moving around a lot more than usual: not at all 9. Thoughts that you would be better off or of hurting yourself in some way: not at all Total score: 0 Depression Screening Interpretation: Negative (is on Rx for her depression) Depression Screening Done: Yes 51534 - PHQ-9 Billing: Yes Source: Developed by Drs. David Soares, KeiryDonn Kemp and colleagues, with an educational violet from [employer]. Thrive Questionnaire Date Thrive assessed: 05/28/24 I am a: Patient What is your living situation today?: I have a steady place to live Within the past 12 months, did the food you bought not last and you didn't have the money to get more?: Never true Within the past 12 months, did you worry whether your food would run out before you got money to buy more?: Never true Do you have trouble paying for medicines?: No Do you have trouble getting transportation to medical appointments?: No Do you have trouble paying your heating and electricity bill?: No Do you have trouble taking care of your child, family member or friend?: No Do you have trouble with day-to-day activities such as bathing, preparing meals, shopping, managing finances, etc.?: No Are you currently unemployed and looking for a job?: No Are you interested in more education?: No Please select the resources that you would like help with: None Currently or been in a relationship where the following occur: No concerns reported THRIVE Score: 0 AUDIT C Alcohol Use Questionnaire (AUDIT-C) 1. How often do you have a drink containing alcohol?: Never 3. How often do you have six or more drinks on one occasion?: Never Total Score: 0 Score Reviewed/Action Taken: Yes PILY-7 AMB Questionnaire PILY-7 Date PILY - 7 assessed: 05/28/24 Feeling nervous, anxious, or on edge: 0 = Not at all Not being able to stop or control worryin = Not at all Worrying too much about different things: 0 = Not at all Trouble relaxin = Not at all Being so restless that it is hard to sit still: 0 = Not at all Becoming easily annoyed or irritable: 0 = Not at all Feeling afraid as if something awful might happen: 0 = Not at all Total PILY-7 score (0-4 normal; 5-9 mild; 10-14 moderate; 15-21 severe): 0 Source: Developed by Drs. David Soares, Donn Reynoso and colleagues, with an educational violet from [employer]. Review of Systems Const Denies chills, Reports difficulty sleeping, Reports fatigue, Denies fever(s) and Reports headache(s) (on and off) ENT Reports dysphagia (on and off), Denies dizziness, Denies otalgia, Reports headache(s) (on and off), Reports neck pain (increasing lately), Denies odynophagia and Denies sore throat Card Denies chest pain, Denies irregular heart rhythm, Denies palpitations and Reports dyspnea on exertion (mild) Resp Denies chest congestion, Denies cough and Reports dyspnea on exertion (mild) GI Denies abdominal pain, Denies constipation, Reports dysphagia (on and off), Denies heartburn, Denies diarrhea, Reports nausea (occasional), Denies odynophagia and Denies vomiting Denies difficulty voiding, Denies nocturia, Denies dysuria and Denies urinary urgency Musc Details: (+) right leg pain and swelling Reports back pain (over the lower back), Reports arthralgias (involving multiple joints, including right shoulder and both hips) and Reports neck pain (increasing lately) Skin/Breast Denies rash Neuro Denies dizziness, Reports headache(s) (on and off) and Reports tremor(s) (patient describes as recurrent shakes due to her anxiety) Psych Reports anxiety and Reports depression Endo Reports fatigue and Denies palpitations Physical exam (Primary Care) Vital Signs: Last Vital Signs Pulse 65 05/28/24 14:45 BP 132/90 H 05/28/24 14:45 Pulse Ox 97 05/28/24 14:45 Oxygen Delivery Method Room Air 05/28/24 14:45 BMI result Body Mass Index 27.5 Tobacco/Smoking Status: Tobacco use Status Tobacco use date assessed 05/28/24 05/28/24 14:51 Patient Tobacco Use Status Former Tobacco user 05/28/24 14:45 e-Cigarette/Vaping Use Never Used 05/28/24 14:45 PHQ-9: PHQ-9 Score PHQ-9: Total score 0 05/28/24 15:30 Depression Screening Interpretation: Negative (is on Rx for her depression) Thrive Assessment: Date of Thrive Assessment Date Thrive assessed 05/28/24 05/28/24 14:59 Currently or been in a relationship where the following occur: No concerns reported Const General: no acute distress and alert HENMT Ears: TM's normal bilaterally and EAC's normal Throat: Yes posterior oropharynx normal and Yes tonsils normal (no TP congestion) Neck Neck: Yes no lymphadenopathy and Yes tender Thyroid: Thyroid normal Resp Auscultation: no rales, no wheezes and diminished lung sounds (slightly) Cardio Rate: regular rate Rhythm: regular rhythm Heart sounds: no murmurs GI Palpation (GI): Soft to palpation and nontender Auscultation: normal bowel sounds General: Yes no CVA tenderness Back/Spine/Pelvis Back: no CVA tenderness Cervical Spine: Cervical spine tenderness Thoracic/Lumbar Spine: lumbar spinal tenderness Skin Rashes: no rashes Extrem General: No clubbing, No cyanosis and Yes edema (1+, over the right lower extremity) Coding Level of Care Code Est Pt Level 4 (69037) Complex EM visit Add On G2211 Diagnoses Paroxysmal atrial fibrillation I48.0 Atrial fibrillation type: paroxysmal Leukocytosis, unspecified type D72.829 Leukocytosis type: unspecified Pure hypercholesterolemia E78.00 Chronic obstructive pulmonary disease, unspecified COPD type J44.9 COPD type: unspecified COPD Esophagitis K20.90 Pituitary macroadenoma D35.2 Impaired fasting glucose R73.01 Acquired hypothyroidism E03.9 Chronic right-sided low back pain with right-sided sciatica M54.41; G89.29 Chronicity: chronic Neck pain M54.2 Sjogren's syndrome, with unspecified organ involvement M35.00 Sjogren's organ involvement: unspecified organ involvement Vitamin D deficiency E55.9 Age-related osteoporosis with current pathological fracture, sequela M80.00XS Osteoporosis type: age-related Presence of current pathological fracture: with current pathological fracture Encounter type: sequela Anxiety F41.9 Episode of recurrent major depressive disorder, unspecified depression episode severity F33.9 Depression Type: major depressive disorder Major depression recurrence: recurrent Active/Remission status: currently active Major depression episode severity: unspecified Obesity (BMI 30-39.9) E66.9 Additional Codes PHQ-9 - 58205 - PHQ-9 Billing: Yes ([id number]) Assessment & Plan Assessment & Plan (1) Atrial fibrillation: Code(s): I48.91 - Unspecified atrial fibrillation Category: Medical Qualifiers: Atrial fibrillation type: paroxysmal Qualified Code(s): I48.0 - Paroxysmal atrial fibrillation Plan: Patient was found to be in atrial fibrillation with rapid ventricular response during her hospitalization at [facility] last month She converted back to normal sinus rhythm on Diltiazem and required Diltiazem drip for a while; is now on Metoprolol 25 mg BID She is currently in sinus rhythm and states that she's had no recurrence of symptoms of palpitations since her discharge from the hospital last month She has a CHADS-VASc score of 3 and is currently on Eliquis 5 mg BID for thromboembolism prophylaxis She has not yet been seen by Cardiology for follow-up and is instructed to reach out to [facility] to schedule her appointment [place] as she will need further outpatient workups done for her atrial fibrillation (2) Leukocytosis (leucocytosis): Code(s): D72.829 - Elevated white blood cell count, unspecified Category: Medical Qualifiers: Leukocytosis type: unspecified Qualified Code(s): D72.829 - Elevated white blood cell count, unspecified Plan: Patient exhibited symptoms consistent with systemic inflammatory response syndrome (SIRS) while she was in the hospital but all of her symptoms have since resolved with no further recurrence Workups done in the hospital, including labs, chest x-rays and abdominal and pelvic CT were negative for acute infection (3) Pure hypercholesterolemia: Code(s): E78.00 - Pure hypercholesterolemia, unspecified Category: Medical Plan: Reinforced low cholesterol diet Continue Simvastatin 20 mg QD Will recheck her labs and fasting lipids in 3 months for follow up (4) COPD (chronic obstructive pulmonary disease): Code(s): J44.9 - Chronic obstructive pulmonary disease, unspecified Category: Medical Qualifiers: COPD type: unspecified COPD Qualified Code(s): J44.9 - Chronic obstructive pulmonary disease, unspecified Plan: Chest CT done at the hospital revealed findings suggestive of early pulmonary fibrosis Her respiratory symptoms have been stable/controlled lately Continue Spiriva HandiHaler 18 mcg QD and Albuterol HFA 2 puffs QID PRN (5) Esophagitis: Code(s): K20.90 - Esophagitis, unspecified without bleeding Category: Medical Plan: She was seen by gastroenterology and had an upper GI series with small bowel follow through ordered for further evaluation a few months ago but patient did not go for her procedure - admits that she got scared about what the test might reveal and is hoping that her symptoms may just subside gradually over time CT angiogram of the chest done while she was in the hospital revealed findings of esophagitis, which is most likely the reason for her acute nausea and vomiting last month as well as her recurrent dysphagia Reinforced dietary restrictions Continue Pantoprazole 40 mg QD Follow-up with GI as scheduled (6) Pituitary macroadenoma: Code(s): D35.2 - Benign neoplasm of pituitary gland Category: Medical Plan: Patient was on Cabergoline 0.25 mg once a week previously but she stopped taking it when her last Rx ran out She was seen by neurology for follow up back in April 2023 - MRI showed a significant decrease in the size of a large sellar and suprasellar mass consistent with a pituitary macroadenoma She also had a prolactin level done a few months ago that came back significantly elevated at 196.5 ng/ml We have since referred her to endocrinology for further evaluation and management of her pituitary macroadenoma and hyperprolactinemia but it looks like she has not yet been seen Follow up also with neurology as scheduled (7) Impaired fasting glucose: Code(s): R73.01 - Impaired fasting glucose Category: Medical Plan: Reinforced low calorie diet/exercise as tolerated Her FBS was elevated at 130 mg/dl on her labs done previously but her in-office HgbA1c was normal at 5.3% and 5.7% when previously checked (8) Acquired hypothyroidism: Code(s): E03.9 - Hypothyroidism, unspecified Category: Medical Plan: Continue Levothyroxine 150 mcg QD Will have patient recheck her TFTs in 3 months for follow up (9) Right-sided low back pain with right-sided sciatica: Code(s): M54.41 - Lumbago with sciatica, right side Category: Medical Qualifiers: Chronicity: chronic Qualified Code(s): M54.41 - Lumbago with sciatica, right side; G89.29 - Other chronic pain Plan: Reinforced activity and weight-lifting restrictions Continue Gabapentin 600 mg 3 times a day adn Tramadol 50 mg TID PRN for pain Continue [place] 10-325 mg 1 tablet 2 to 3 times a day as needed for increased pain Patient was receiving physical therapy at the beginning of 2019 - states that therapy was helping but this was cut short by the COVID-19 pandemic and she has not resumed PT since as patient does not want to get vaccinated against COVID and she wants to limit her exposure risks Adds that physical therapy for her now is at least a [address] from [address] house and she cannot afford the gas money required for her to get to her sessions (10) Neck pain: Code(s): M54.2 - Cervicalgia Category: Medical Plan: She was sent for cervical spine x-rays for further evaluation of her recently increasing neck pain but she has not gotten this done yet so far (11) Sjogren's disease: Code(s): M35.00 - Sjogren syndrome, unspecified Category: Medical Qualifiers: Sjogren's organ involvement: unspecified organ involvement Qualified Code(s): M35.00 - Sicca syndrome, unspecified Plan: Continue Hydroxychloroquine tablets 200 mg BID Follow up with rheumatology as scheduled (12) Vitamin D deficiency: Code(s): E55.9 - Vitamin D deficiency, unspecified Category: Medical Plan: Continue Vitamin D3 2000 units QD (13) Osteoporosis: Code(s): M81.0 - Age-related osteoporosis without current pathological fracture Category: Medical Qualifiers: Osteoporosis type: age-related Presence of current pathological fracture: with current pathological fracture Encounter type: sequela Qualified Code(s): M80.00XS - Age-related osteoporosis with current pathological fracture, unspecified site, sequela Plan: Her repeat BMD done a few months ago on 01/28/2024 revealed (+) severe osteoporosis based on the lowest T-score value of -4.4 in the femoral neck and history of fracture Her BMD in the left femur has declined significantly from her previous BMD; BMD in the AP spine is unchanged from previous Fall precautions reinforced She is also advised to continue with her daily oral calcium and vitamin D supplements She is supposed to exercise regularly but her activity tolerance is very limited, given her multiple issues We have also referred her to endocrinology at her last visit for further evaluation and management but she has not yet been seen (14) Anxiety: Code(s): F41.9 - Anxiety disorder, unspecified Category: Medical Plan: Continue Lorazepam 1 mg TID PRN, Buspirone 30 mg BID, Escitalopram 20 mg QD and Doxepin 10 mg Q HS (15) Depression: Code(s): F32.9 - Major depressive disorder, single episode, unspecified Category: Medical Qualifiers: Depression Type: major depressive disorder Major depression recurrence: recurrent Active/Remission status: currently active Major depression episode severity: unspecified Qualified Code(s): F33.9 - Major depressive disorder, recurrent, unspecified Plan: Continue Escitalopram 20 mg QD She could not tolerate Mirtazapine (leg cramps) She is also seeing a therapist regularly/weekly - to continue as scheduled (16) Obesity (BMI 30-39.9): Code(s): E66.9 - Obesity, unspecified Category: Medical Plan: Reinforced diet; exercise and weight loss are unrealistic given patient's physical limitations and issues Plan Follow up in 3 months Orders: Orders Comprehensive [place]. Panel Fast 3 Months E78.00 - Pure hypercholesterolemia, unspecified Vitamin D 25-OH Total 3 Months E55.9 - Vitamin D deficiency, unspecified Free T4 (Free Thyroxine) 3 Months E03.9 - Hypothyroidism, unspecified UA CC w/rflx Micro + Cult 3 Months R30.0 - Dysuria Thyroid Stimulating Hormone 3 Months E03.9 - Hypothyroidism, unspecified Vitamin B12 and Folate 3 Months E53.8 - Deficiency of other specified B group vitamins Complete Blood Count Auto Diff 3 Months D64.9 - Anemia, unspecified Lipid Panel 3 Months E78.00 - Pure hypercholesterolemia, unspecified Prolactin 3 Months D35.2 - Benign neoplasm of pituitary gland Medications: New apixaban (Eliquis) 5 mg PO BID 90 days 180 tabs 1RF Eliquis (apixaban) 5 mg PO BID 10 days 20 tabs 0RF NS
== END 2024-05-28 15:34 | disposition home or self-care (01) ==
PROVIDERS: PCP Internal Medicine; Visit Provider Internal Medicine
DX: I48.0 Paroxysmal atrial fibrillation (principal); J44.9 Chronic obstructive pulmonary disease, unspecified; D35.2 Benign neoplasm of pituitary gland; M35.00 Sjogren syndrome, unspecified; F33.9 Major depressive disorder, recurrent, unspecified; D72.829 Elevated white blood cell count, unspecified; E78.00 Pure hypercholesterolemia, unspecified; K20.90 Esophagitis, unspecified without bleeding; R73.01 Impaired fasting glucose; E03.9 Hypothyroidism, unspecified; M54.41 Lumbago with sciatica, right side; G89.29 Other chronic pain

== ENCOUNTER → 2024-05-28 13:28 | Outpatient (BNVA) | payer MEDICARE, SELFPAY | PROVIDERS: PCP Internal Medicine; Visit Provider Internal Medicine | DX: I48.0 Paroxysmal atrial fibrillation (principal); D72.829 Elevated white blood cell count, unspecified; E78.00 Pure hypercholesterolemia, unspecified; J44.9 Chronic obstructive pulmonary disease, unspecified; K20.90 Esophagitis, unspecified without bleeding; D35.2 Benign neoplasm of pituitary gland; R73.01 Impaired fasting glucose; E03.9 Hypothyroidism, unspecified; M54.41 Lumbago with sciatica, right side; G89.29 Other chronic pain; M54.2 Cervicalgia; E55.9 Vitamin D deficiency, unspecified; F41.9 Anxiety disorder, unspecified; F33.9 Major depressive disorder, recurrent, unspecified | CPT/HCPCS: 96127; 99212 ==

== ENCOUNTER 2024-06-14 13:54 | Outpatient (AMB) | payer MEDICARE, SELFPAY ==
[2024-06-14 14:08] VITALS: BP 130/80; PULSE 63; BMI 27.8
--- NOTE | 2024-06-14 14:08 | A.OFFVIS_ITS ---
Vital Signs 06/14/24 14:08 Height 5 ft 6 in Weight 171 lb 15.369 oz BMI 27.8 BP 130/80 Blood Pressure Location Lt brachial Position Sitting Pulse 63 Intake Visit Reasons: r/s 05/06/24 1 year followup w/ekg Intake Note: 1 year follow-up with ekg was in [place] in Oct in [facility] Medical Affairs Manager Required: No Allergies latex [LATEX] Allergy (Intermediate, Verified 05/28/24 15:25) BLISTERS Medication List - Last Reconciled 06/14/24 by Vince Garcia MD blood pressure monitor (Blood Pressure Kit) As directed buspirone 30 mg PO BID 90 days cabergoline 0.25 mg (1/2 x 0.5 mg) PO .weekly 3 months doxepin 10 mg PO DAILY PRN Eliquis (apixaban) 5 mg PO BID 10 days NS escitalopram oxalate 20 mg PO DAILY hydrocodone-acetaminophen 10-325 mg 1 tab PO .2 to 3 times a day PRN 15 days hydroxychloroquine 200 mg PO BID 90 days levothyroxine 150 mcg PO DAILY 90 days lidocaine 5% 1 appl topical BID-TID PRN lorazepam 1 mg PO TID 90 days metoprolol tartrate 25 mg PO BID 90 days pantoprazole 40 mg PO DAILY 90 days [QUAD CANE As directed] [teds hose As directed] tizanidine 8 mg (2 x 4 mg) PO Q8H 90 days tramadol 50 mg PO TID 90 days [WRIST BRACES, bilateral (MEDIUM) As directed] HPI Comments Details: Ritu comes for follow-up, after recent hospitalization at [facility] in April for systemic inflammatory response syndrome. Subsequently during the hospitalization she developed atrial flutter with rapid ventricular response which got easily converted to sinus rhythm on diltiazem. Since then she was started on Eliquis as well as metoprolol. She has not had any recurrent palpitations. She denies any heart failure symptoms. Has musculoskeletal symptoms with pain in her left arm as well as the right shoulder. She also complains of headache and back neck pain. [facility] Medical History Esophagitis Atrial fibrillation Osteoporosis Overweight (BMI 25.0-29.9) Pituitary macroadenoma HTN (hypertension) Hypokalemia Colonoscopy refused Pure hypercholesterolemia Acquired hypothyroidism Sjogren's syndrome Primary osteoarthritis, right shoulder Obesity (BMI 30-39.9) Depression Sjogren's disease Anemia Impaired fasting glucose Pure hypercholesterolemia COPD (chronic obstructive pulmonary disease) Acquired hypothyroidism Sacral dysfunction Right-sided low back pain with right-sided sciatica Anxiety Surgical History History of right hip replacement Closed displaced fracture of right patella Right carpal tunnel syndrome (~2010) H/O: hysterectomy Family History Father CAD (coronary artery disease) Thyroid disease CVD (cardiovascular disease) Mother CVD (cardiovascular disease) Scleroderma Sister No problems noted. Brother No problems noted. Sister No problems noted. Other Closed displaced fracture of right patella Social History Housing: House Alcohol intake: former Patient Tobacco Use Status: Former Tobacco user e-Cigarette/Vaping Use: Never Used Second Hand Smoke Exposure: Yes Substance Use Type: Marijuana service: No Current occupational status: retired and disabled Cognitive needs: Yes (cane) Hearing needs: No Vision needs: No Review of Systems Const Denies chills, Denies fatigue, Denies fever(s), Denies frequent falls, Denies weakness, Denies weight gain and Denies weight loss ENT Denies dizziness Card Denies chest pain, Denies leg edema, Denies lightheadedness, Denies palpitations, Denies dyspnea, Denies dyspnea on exertion, Denies orthopnea and Denies other (loss of consciousness) Resp Denies cough, Denies dyspnea and Denies dyspnea on exertion GI Denies hematochezia and Denies change in stool character Musc Denies abnormal gait, Denies muscle weakness, Denies numbness, Denies radiating pain into limb and Denies tingling Neuro Denies Abnormal speech present, Denies abnormal gait, Denies dizziness, Denies frequent falls, Denies numbness, Denies tingling and Denies weakness Endo Denies fatigue and Denies palpitations Physical Exam Vital Signs: Last Vital Signs Pulse 63 06/14/24 14:08 BP 130/80 06/14/24 14:08 BMI result Body Mass Index 27.8 Const General: cooperative, comfortable, no acute distress, alert and awake Nutritional Appearance: overweight Orientation/consciousness: patient oriented x3 Limitations: no limitations Neck Neck: Yes trachea midline, Yes supple and Yes no JVD Resp Effort & Inspection: normal respiratory effort Auscultation: clear to auscultation bilaterally Cardio Jugular venous distension: no JVD Palpation: normal PMI Rate: regular rate Rhythm: regular rhythm Heart sounds: S1 normal heart sound present, S2 normal heart sound present, no click, no gallops, no murmurs and no rubs GI Auscultation: normal bowel sounds Skin General skin exam: no rashes or lesions noted Neuro General: patient oriented x3 and no focal motor deficits Speech: No Abnormal speech present Extrem General: Yes no clubbing, cyanosis or edema Office Procedures EKG Details: EKG shows normal sinus rhythm nonspecific T-wave changes [id number], Complete Assessment & Plan Assessment & Plan (1) Atrial fibrillation: Code(s): I48.91 - Unspecified atrial fibrillation Category: Medical Qualifiers: Atrial fibrillation type: paroxysmal Qualified Code(s): I48.0 - Paroxysmal atrial fibrillation Plan: Paroxysmal atrial fibrillation this elderly woman with history of hypertension. This most recent episode happened in the setting of acute medical illness which is not unusual. As this is likely trigger for her atrial flutter. Since been started on metoprolol she has had no recurrent symptoms. Will continue pursue rhythm control approach. Continue metoprolol therapy. Avoidance of stimulants was discussed. CHADSVASc score of 3. Eliquis is recommended therapy as long as there are no obvious neurological and neurosurgical contraindication. I have advised her to follow up with you about the same. Continue aggressive blood pressure control. I have advised her to get an echocardiogram to evaluate for LV systolic and diastolic function biatrial chamber size. Follow up in the clinic in 1 year's time, sooner p.r.n.. Thank you for allowing me to partake in her care Orders: Orders CA echo transthoracic complete Today I48.0 - Paroxysmal atrial fibrillation Coding Level of Care Code Est Pt Level 4 (73663) Complex EM visit Add On G2211 Diagnoses Paroxysmal atrial fibrillation I48.0 Atrial fibrillation type: paroxysmal CPT Codes EKG - CPT: [id number], Complete ([id number])
== END 2024-06-14 14:25 | disposition home or self-care (01) ==
PROVIDERS: PCP Internal Medicine; Visit Provider Internal Medicine Cardiovascular Disease
DX: I48.0 Paroxysmal atrial fibrillation (principal)
CPT/HCPCS: 93010; 99214; G2211

== ENCOUNTER → 2024-06-14 13:54 | Outpatient (BNVA) | payer MEDICARE, SELFPAY | PROVIDERS: PCP Internal Medicine; Visit Provider Internal Medicine Cardiovascular Disease | DX: I48.0 Paroxysmal atrial fibrillation (principal); Z79.01 Long term (current) use of anticoagulants | CPT/HCPCS: 93005; 99212 ==

== ENCOUNTER → 2024-08-18 13:09 | Outpatient (BNV) | payer MEDICARE, SELFPAY | PROVIDERS: PCP Internal Medicine; Visit Provider Internal Medicine Cardiovascular Disease | DX: I42.2 Other hypertrophic cardiomyopathy (principal); I48.0 Paroxysmal atrial fibrillation | CPT/HCPCS: 93306 ==

== ENCOUNTER 2024-09-03 13:39 | Outpatient (AMB) | payer MEDICARE, SELFPAY ==
[2024-09-03 13:40] VITALS: BP 110/80; PULSE 62; O2SAT 98; BMI 28.0
--- NOTE | 2024-09-03 13:40 | A.OFFPC_ITS ---
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 Accompanied by: Self / Same As Patient Allergies latex [LATEX] Allergy (Intermediate, Verified 09/04/24 21:06) BLISTERS Medication List - Last Reconciled 09/04/24 by Carlos Mata MD albuterol sulfate 2.5 mg inhalation Q4H PRN blood pressure monitor (Blood Pressure Kit) As directed buspirone 30 mg PO BID 90 days cabergoline 0.25 mg (1/2 x 0.5 mg) PO .weekly 3 months doxepin 10 mg PO DAILY PRN Eliquis (apixaban) 5 mg PO BID 10 days NS escitalopram oxalate 20 mg PO DAILY hydrocodone-acetaminophen 10-325 mg 1 tab PO .2 to 3 times a day PRN 15 days hydroxychloroquine 200 mg PO BID 90 days levothyroxine 150 mcg PO DAILY 90 days lidocaine 5% 1 appl topical BID-TID PRN lorazepam 1 mg PO TID 90 days metoprolol tartrate 25 mg PO BID 90 days oseltamivir (Tamiflu) 75 mg PO BID 5 days pantoprazole 40 mg PO DAILY 90 days prednisone 10 mg PO DIRECTED [QUAD CANE As directed] [teds hose As directed] tizanidine 8 mg (2 x 4 mg) PO Q8H 90 days tramadol 50 mg PO TID 90 days [WRIST BRACES, bilateral (MEDIUM) As directed] Tobacco use date assessed: 09/03/24 Fall risk assessment: 2 + Falls in past year Last assessed Fall Risk: 09/03/24 Dental Screening Dental Screen Date: 09/03/24 Did you have a dental visit in the last 12 months?: No Did you have a dental problem in the last 6 months where you did not have access to dental care?: No Was dental information given to patient?: No HPI PAF, hyperlipidemia HPI Details Patient comes in today for her follow-up visit She was just admitted to [facility] for a few days earlier this week for influenza She was brought to the hospital for fever, increased generalized weakness, nausea/vomiting this past weekend and was found to have influenza, dehydration and JAYCOB as well as acute exacerbation of her COPD She was started on Tamiflu and this was continued at discharge to complete a five-day course of the medication but states that the pharmacy claims that they never received her prescription for Tamiflu She was also discharged home on oral prednisone taper and instructed to continue with previous inhalers to help manage her COPD exacerbation States that she is still experiencing recurrent cough and congestion and feels short of breath, especially when she is coughing a lot or with increased exertion States that her coughing keeps her up often at night, and she coughs up minimal yellowish to greenish phlegm States that she is currently still on Eliquis, which was started a few months ago when developed irregular heart rhythms and was diagnosed with atrial fibrillation She recalls that she was experiencing intermittent chest pains as well during her recent hospitalization Adds that she has been having trouble lifting her left arm for the past couple of weeks now due to increased pain in her shoulder when she tries to raise her arm She does not recall any recent injury or trauma to left shoulder She was also given a prescription for physical therapy for unsteady gait at discharge but she has not yet submitted the order She currently denies any fever, headaches or dizziness No nausea/vomiting, no abdominal pain No change in bowel habits noted [facility] Medical History Esophagitis Atrial fibrillation Osteoporosis Overweight (BMI 25.0-29.9) Pituitary macroadenoma HTN (hypertension) Hypokalemia Colonoscopy refused Pure hypercholesterolemia Acquired hypothyroidism Sjogren's syndrome Primary osteoarthritis, right shoulder Obesity (BMI 30-39.9) Depression Sjogren's disease Anemia Impaired fasting glucose Pure hypercholesterolemia COPD (chronic obstructive pulmonary disease) Acquired hypothyroidism Sacral dysfunction Right-sided low back pain with right-sided sciatica Anxiety Surgical History History of right hip replacement Closed displaced fracture of right patella Right carpal tunnel syndrome (~2010) H/O: hysterectomy Family History Father CAD (coronary artery disease) Thyroid disease CVD (cardiovascular disease) Mother CVD (cardiovascular disease) Scleroderma Sister No problems noted. Brother No problems noted. Sister No problems noted. Other Closed displaced fracture of right patella Social History Housing: House Alcohol intake: former Patient Tobacco Use Status: Former Tobacco user e-Cigarette/Vaping Use: Never Used Second Hand Smoke Exposure: Yes Substance Use Type: Marijuana service: No Current occupational status: retired and disabled Cognitive needs: Yes (cane) Hearing needs: No Vision needs: No Questionnaire PHQ-9 Over the last 2 weeks, how often have you been bothered by any of the following problems? 1. Little interest or pleasure in doing things: not at all 2. Feeling down, depressed, or hopeless: not at all 3. Trouble falling or staying asleep, or sleeping too much: not at all 4. Feeling tired or having little energy: not at all 5. Poor appetite or overeating: not at all 6. Feeling bad about yourself - or that you are a failure or have let yourself or your family down: not at all 7. Trouble concentrating on things, such as reading the newspaper or watching television: not at all 8. Moving or speaking so slowly that other people could have noticed. Or the opposite - being so fidgety or restless that you have been moving around a lot more than usual: not at all 9. Thoughts that you would be better off or of hurting yourself in some way: not at all Total score: 0 Depression Screening Interpretation: Negative (is on Rx for her depression) Depression Screening Done: Yes 67004 - PHQ-9 Billing: Yes Source: Developed by Drs. David Soares, Keiry Rodgers, Donn Walls and colleagues, with an educational violet from [employer]. Thrive Questionnaire Date Thrive assessed: 09/03/24 I am a: Patient What is your living situation today?: I have a steady place to live Within the past 12 months, did the food you bought not last and you didn't have the money to get more?: Never true Within the past 12 months, did you worry whether your food would run out before you got money to buy more?: Never true Do you have trouble paying for medicines?: No Do you have trouble getting transportation to medical appointments?: No Do you have trouble paying your heating and electricity bill?: No Do you have trouble taking care of your child, family member or friend?: No Do you have trouble with day-to-day activities such as bathing, preparing meals, shopping, managing finances, etc.?: No Are you currently unemployed and looking for a job?: No Are you interested in more education?: No Please select the resources that you would like help with: None Currently or been in a relationship where the following occur: No concerns repor kellie THRIVE Score: 0 AUDIT C Alcohol Use Questionnaire (AUDIT-C) 1. How often do you have a drink containing alcohol?: Never 3. How often do you have six or more drinks on one occasion?: Never Total Score: 0 Score Reviewed/Action Taken: Yes PILY-7 AMB Questionnaire PILY-7 Date PILY - 7 assessed: 09/03/24 Feeling nervous, anxious, or on edge: 0 = Not at all Not being able to stop or control worryin = Not at all Worrying too much about different things: 0 = Not at all Trouble relaxin = Not at all Being so restless that it is hard to sit still: 0 = Not at all Becoming easily annoyed or irritable: 0 = Not at all Feeling afraid as if something awful might happen: 0 = Not at all Total PILY-7 score (0-4 normal; 5-9 mild; 10-14 moderate; 15-21 severe): 0 Source: Developed by Drs. David Soares, Keiry Rodgers, Donn Walls and colleagues, with an educational violet from [employer]. Review of Systems Const Denies chills, Reports difficulty sleeping, Reports fatigue, Denies fever(s) and Denies headache(s) ENT Reports dysphagia (on and off), Denies dizziness, Denies otalgia, Denies headache(s), Reports neck pain (increasing lately), Denies odynophagia and Denies sore throat Card Denies chest pain, Denies irregular heart rhythm, Denies palpitations and Reports dyspnea on exertion (mild) Resp Reports chest congestion, Reports cough (recurrent ), Reports excessive phlegm production, Reports dyspnea on exertion (mild) and Reports wheezing (at times) GI Denies abdominal pain, Denies constipation, Reports dysphagia (on and off), Denies heartburn, Denies diarrhea, Denies nausea, Denies odynophagia and Denies vomiting Denies difficulty voiding, Denies nocturia, Denies dysuria and Denies urinary urgency Musc Details: (+) right leg pain and swelling Reports abnormal gait (unsteady), Reports back pain (over the lower back), Reports arthralgias (involving multiple joints, including right shoulder and both hips) and Reports neck pain (increasing lately) Skin/Breast Denies rash Neuro Reports abnormal gait (unsteady), Denies dizziness, Denies headache(s) and Reports tremor(s) (patient describes as recurrent shakes due to her anxiety) Psych Reports anxiety and Reports depression Endo Reports fatigue and Denies palpitations Aller/Immun Reports wheezing (at times) Physical exam (Primary Care) Vital Signs: Last Vital Signs Pulse 62 09/03/24 13:40 BP 110/80 09/03/24 13:40 Pulse Ox 98 09/03/24 13:40 Oxygen Delivery Method Room Air 09/03/24 13:40 BMI result Body Mass Index 28.0 Tobacco/Smoking Status: Tobacco use Status Tobacco use date assessed 09/03/24 09/03/24 13:44 Patient Tobacco Use Status Former Tobacco user 09/03/24 13:44 e-Cigarette/Vaping Use Never Used 09/03/24 13:44 PHQ-9: PHQ-9 Score PHQ-9: Total score 0 09/03/24 14:29 Depression Screening Interpretation: Negative (is on Rx for her depression) Thrive Assessment: Date of Thrive Assessment Date Thrive assessed 09/03/24 09/03/24 13:44 Currently or been in a relationship where the following occur: No concerns reported Const General: no acute distress and alert HENMT Ears: TM's normal bilaterally and EAC's normal Throat: Yes posterior oropharynx normal and Yes tonsils normal (no TP congestion) Neck Neck: Yes no lymphadenopathy and Yes tender Thyroid: Thyroid normal Resp Auscultation: no rales, rhonchi (scattered) throughout, wheezes expiratory wheezes and diminished lung sounds (significantly) bilateral Cardio Rate: regular rate Rhythm: regular rhythm Heart sounds: no murmurs GI Palpation (GI): Soft to palpation and nontender Auscultation: normal bowel sounds General: Yes no CVA tenderness Back/Spine/Pelvis Back: no CVA tenderness Cervical Spine: Cervical spine tenderness Thoracic/Lumbar Spine: lumbar spinal tenderness Skin Rashes: no rashes Extrem General: No clubbing, No cyanosis and Yes edema (1+, over the right lower extremity) Coding Level of Care Code Est Pt Level 4 (60044) Complex EM visit Add On G2211 Diagnoses Influenza A J10.1 COPD exacerbation J44.1 Gait instability R26.81 Paroxysmal atrial fibrillation I48.0 Pure hypercholesterolemia E78.00 Esophagitis K20.90 Pituitary macroadenoma D35.2 Impaired fasting glucose R73.01 Acquired hypothyroidism E03.9 Chronic right-sided low back pain with right-sided sciatica M54.41; G89.29 Chronicity: chronic Neck pain M54.2 Sjogren's syndrome, with unspecified organ involvement M35.00 Sjogren's organ involvement: unspecified organ involvement Vitamin D deficiency E55.9 Age-related osteoporosis with current pathological fracture, sequela M80.00XS Osteoporosis type: age-related Presence of current pathological fracture: with current pathological fracture Encounter type: sequela Left shoulder pain, unspecified chronicity M25.512 Chronicity: unspecified Left elbow pain M25.522 Anxiety F41.9 Episode of recurrent major depressive disorder, unspecified depression episode severity F33.9 Depression Type: major depressive disorder Major depression recurrence: recurrent Active/Remission status: currently active Major depression episode severity: unspecified Obesity (BMI 30-39.9) E66.9 Additional Codes PHQ-9 - 31844 - PHQ-9 Billing: Yes ([id number]) Assessment & Plan Assessment & Plan (1) Influenza A: Code(s): J10.1 - Influenza due to other identified influenza virus with other respiratory manifestations Category: Medical Plan: Patient tested positive for influenza a when she was admitted to the hospital earlier this week She was started on Tamiflu at the hospital and was supposed to continue on this at discharge but patient states that her pharmacy claim that they never received the prescription so she has not completed this yet Will go ahead and send in a prescription for Tamiflu 75 mg BID patient to complete her treatment (2) COPD exacerbation: Code(s): J44.1 - Chronic obstructive pulmonary disease with (acute) exacerbation Category: Medical Plan: Patient is currently still on her oral prednisone taper Continue Spiriva HandiHaler 18 mcg QD and Albuterol HFA 2 puffs QID PRN Chest CT done at the hospital a few months ago revealed findings suggestive of early pulmonary fibrosis (3) Gait instability: Code(s): R26.81 - Unsteadiness on feet Category: Medical Plan: Will refer her to physical therapy for further evaluation and management of her gait instability (4) Paroxysmal atrial fibrillation: Code(s): I48.0 - Paroxysmal atrial fibrillation Category: Medical Plan: Patient was found to be in atrial fibrillation with rapid ventricular response during her hospitalization at [facility] a few months ago She converted back to normal sinus rhythm on Diltiazem and required Diltiazem drip for a while; is now on Metoprolol 25 mg BID She is currently in sinus rhythm and states that she's had no recurrence of symptoms of palpitations since her discharge from the hospital a few months ago She has a CHADS-VASc score of 3 and is currently still on Eliquis 5 mg BID for thromboembolism prophylaxis She was seen by cardiology here at [facility] last month and they recommended to continue with rhythm approach for now Follow up with cardiology as scheduled (5) Pure hypercholesterolemia: Code(s): E78.00 - Pure hypercholesterolemia, unspecified Category: Medical Plan: Patient had some labs done when she was admitted to the hospital earlier this week these did not include a fasting lipid profile Reinforced low cholesterol diet Continue Simvastatin 20 mg QD (6) Esophagitis: Code(s): K20.90 - Esophagitis, unspecified without bleeding Category: Medical Plan: She was seen by gastroenterology and had an upper GI series with small bowel follow through ordered for further evaluation a few months ago but patient did not go for her procedure - admits that she got scared about what the test might reveal and is hoping that her symptoms may just subside gradually over time CT angiogram of the chest done while she was in the hospital revealed findings of esophagitis, which is most likely the reason for her nausea and vomiting last month as well as her recurrent dysphagia in the past Reinforced dietary restrictions Continue Pantoprazole 40 mg QD Follow-up with GI as scheduled (7) Pituitary macroadenoma: Code(s): D35.2 - Benign neoplasm of pituitary gland Category: Medical Plan: Patient was on Cabergoline 0.25 mg once a week previously but she stopped taking it when her last Rx ran out She was seen by neurology for follow up back in April 2023 - MRI showed a significant decrease in the size of a large sellar and suprasellar mass consistent with a pituitary macroadenoma She also had a prolactin level done a few months ago that came back significantly elevated at 196.5 ng/ml We have since referred her to endocrinology for further evaluation and management of her pituitary macroadenoma and hyperprolactinemia but it looks like she has not yet been seen Follow up also with neurology as scheduled (8) Impaired fasting glucose: Code(s): R73.01 - Impaired fasting glucose Category: Medical Plan: Her FBS was elevated at 129 mg/dl on her recent labs; her in-office HgbA1c was normal at 5.3% and 5.7% when previously checked Reinforced low calorie diet/exercise as tolerated (9) Acquired hypothyroidism: Code(s): E03.9 - Hypothyroidism, unspecified Category: Medical Plan: Continue Levothyroxine 150 mcg QD (10) Right-sided low back pain with right-sided sciatica: Code(s): M54.41 - Lumbago with sciatica, right side Category: Medical Qualifiers: Chronicity: chronic Qualified Code(s): M54.41 - Lumbago with sciatica, right side; G89.29 - Other chronic pain Plan: Reinforced activity and weight-lifting restrictions Continue Gabapentin 600 mg 3 times a day adn Tramadol 50 mg TID PRN for pain Continue Decker 10-325 mg 1 tablet 2 to 3 times a day as needed for increased pain Patient was receiving physical therapy at the beginning of 2019 - states that therapy was helping but this was cut short by the COVID-19 pandemic and she has not resumed PT since as patient does not want to get vaccinated against COVID and she wants to limit her exposure risks Adds that physical therapy for her is at least a [address] from her house and she cannot afford the gas money required for her to get to her PT sessions (11) Neck pain: Code(s): M54.2 - Cervicalgia Category: Medical Plan: She was sent for cervical spine x-rays for further evaluation of her recently increasing neck pain but she has not gotten this done yet so far (12) Sjogren's disease: Code(s): M35.00 - Sjogren syndrome, unspecified Category: Medical Qualifiers: Sjogren's organ involvement: unspecified organ involvement Qualified Code(s): M35.00 - Sicca syndrome, unspecified Plan: Continue Hydroxychloroquine tablets 200 mg BID Follow up with rheumatology as scheduled (13) Vitamin D deficiency: Code(s): E55.9 - Vitamin D deficiency, unspecified Category: Medical Plan: Continue Vitamin D3 2000 units QD (14) Osteoporosis: Code(s): M81.0 - Age-related osteoporosis without current pathological fracture Category: Medical Qualifiers: Osteoporosis type: age-related Presence of current pathological fracture: with current pathological fracture Encounter type: sequela Qualified Code(s): M80.00XS - Age-related osteoporosis with current pathological fracture, unspecified site, sequela Plan: Her repeat BMD done a few months ago on 01/28/2024 revealed (+) severe osteoporosis based on the lowest T-score value of -4.4 in the femoral neck and history of fracture Her BMD in the left femur has declined significantly from her previous BMD; BMD in the AP spine is unchanged from previous Fall precautions reinforced She is also advised to continue with her daily oral calcium and vitamin D supplements She is supposed to exercise regularly but her activity tolerance is very limited, given her multiple issues We have also referred her to endocrinology at her last visit for further evaluation and management but she has not yet been seen (15) Left shoulder pain: Code(s): M25.512 - Pain in left shoulder Category: Medical Qualifiers: Chronicity: unspecified Qualified Code(s): M25.512 - Pain in left shoulder Plan: Will send patient for x-rays of the left shoulder further evaluation (16) Left elbow pain: Code(s): M25.522 - Pain in left elbow Category: Medical Plan: Will send her for x-rays of her left elbow as well further evaluation of left elbow/left arm pain (17) Anxiety: Code(s): F41.9 - Anxiety disorder, unspecified Category: Medical Plan: Continue Lorazepam 1 mg TID PRN, Buspirone 30 mg BID, Escitalopram 20 mg QD and Doxepin 10 mg Q HS (18) Depression: Code(s): F32.9 - Major depressive disorder, single episode, unspecified Category: Medical Qualifiers: Depression Type: major depressive disorder Major depression recurrence: recurrent Active/Remission status: currently active Major depression episode severity: unspecified Qualified Code(s): F33.9 - Major depressive disorder, recurrent, unspecified Plan: Continue Escitalopram 20 mg QD She could not tolerate Mirtazapine (leg cramps) She is also seeing a therapist regularly/weekly - to continue as scheduled (19) Obesity (BMI 30-39.9): Code(s): E66.9 - Obesity, unspecified Category: Medical Plan: Reinforced diet; exercise and weight loss are unrealistic given patient's physical limitations and issues Plan Follow up in 3 months Orders: Orders PT Evaluation and Treatment 09/03/24 R26.81 - Unsteadiness on feet XR shoulder LT min 2V 09/03/24 M25.512 - Pain in left shoulder XR elbow LT min 3V 09/03/24 M25.522 - Pain in left elbow Medications: New oseltamivir (Tamiflu) 75 mg PO BID 5 days 10 caps 0RF
--- OUTSIDE RECORDS SUMMARY | 2024-09-03 14:08 | XMS_ITS | Clinical Summary ---
Author Organization [facility] Address [address] [place] [address] Care Team Providers Care [employer] Glazier Name Role Phone Carlos aMta MD Primary Care Provider [phone] Allergies Active Allergy Reactions Criticality Noted Date Comments Latex Hives Medium 03/29/2019 Medications Medication Sig Dispensed Refills Start Date End Date Status simvastatin (ZOCOR) 20 MG tablet Take 20 mg by mouth nightly. Active LORazepam (ATIVAN) 1 MG tablet Take 1 mg by mouth 3 times daily (every 8 hours) as needed for anxiety. Active levothyroxine (SYNTHROID) 150 MCG tablet Take 150 mcg by mouth daily on an empty stomach. Active traMADol (ULTRAM) 50 MG tablet Take 50 mg by mouth 3 times daily (every 8 hours) as needed for severe pain. Active HYDROcodone-acetaminop hen (NORCO) 10-325 mg per tablet Take 1 tablet by mouth 3 (three) times a day as needed for severe pain. Active cetirizine (ZyrTEC) 10 MG tablet Take 10 mg by mouth daily. Active gabapentin (NEURONTIN) 400 MG capsule Take 400 mg by mouth 3 (three) times a day. Active TiZANidine (ZANAFLEX) 4 MG capsule Take 8 mg by mouth 3 (three) times a day as needed for muscle spasms. Take 1-2 tabs TID prn Active hydroxychloroquine (PLAQUENIL) 200 MG tablet Take 200 mg by mouth 2 (two) times a day with meals. With food or milk. 04/15/2019 Active celeCOXIB (CeleBREX) 200 MG capsule Take 200 mg by mouth daily. 04/15/2019 Active Social History Tobacco Use Types Packs/Day Years Used Date Smoking Tobacco: Never Assessed Sex and Gender Information Value Date Recorded Sex Assigned at Not on file Gender Identity Not on file Sexual Orientation Not on file Last Filed Vital Signs Vital Sign Reading Time Taken Comments Blood Pressure 128/80 05/12/2019 12:50 PM EDT Pulse 83 05/12/2019 12:50 PM EDT Temperature 36.7 ??C (98 ??F) 05/12/2019 12:13 PM EDT Respiratory Rate - - Oxygen Saturation 98% 05/12/2019 12:13 PM EDT Inhaled Oxygen Concentration - - Weight - - Height - - Body Mass Index - - Plan of Treatment Health Maintenance Due Date Last Done Comments Hepatitis C Virus Screening 1960 COVID-19 Vaccine (#1) 1963 HIV Screening 1971 DTaP/Tdap/Td Vaccines (1 - Tdap) 1977 Pneumococcal Vaccines 50+ (1 of 2 - PCV) 1977 Zoster (Shingles) Vaccine (1 of 2) 1977 Pap Smear (Ages 21-65) 1979 Mammogram 1998 Colonoscopy 2003 RSV Vaccine 60 years and old er and Patients (1 - Risk 60-74 years 1-dose series) 2018 DXA Bone Density (Females,Ag es 65 and older) 2023 Influenza Vaccine 02/12/2024 Hepatitis B Vaccines Aged Out No long er eligible based on patient's age to complete this topic Insurance Payer Benefit Plan / Group Subscriber ID Effective Dates Phone Address [facility] [id number] 2019-[place] [address] Care Teams [employer] Relationship Specialty Start Date End Date Carlos Mata MD [address] [place] [address] [place] [id number] PCP - General Internal Medicine 03/23/19
== END 2024-09-03 14:38 | disposition home or self-care (01) ==
PROVIDERS: PCP Internal Medicine; Visit Provider Internal Medicine
DX: J10.1 Influenza due to other identified influenza virus with other respiratory manifestations (principal); J44.1 Chronic obstructive pulmonary disease with (acute) exacerbation; R26.81 Unsteadiness on feet; I48.0 Paroxysmal atrial fibrillation; E78.00 Pure hypercholesterolemia, unspecified; K20.90 Esophagitis, unspecified without bleeding; D35.2 Benign neoplasm of pituitary gland; R73.01 Impaired fasting glucose; E03.9 Hypothyroidism, unspecified; M54.41 Lumbago with sciatica, right side; M35.00 Sjogren syndrome, unspecified; F33.9 Major depressive disorder, recurrent, unspecified; G89.29 Other chronic pain; M54.2 Cervicalgia; E55.9 Vitamin D deficiency, unspecified; M80.00XS Age-related osteoporosis with current pathological fracture, unspecified site, sequela; M25.512 Pain in left shoulder; M25.522 Pain in left elbow; F41.9 Anxiety disorder, unspecified; E66.9 Obesity, unspecified

== ENCOUNTER → 2024-09-03 13:39 | Outpatient (BNVA) | payer MEDICARE, SELFPAY | PROVIDERS: PCP Internal Medicine; Visit Provider Internal Medicine | DX: J10.1 Influenza due to other identified influenza virus with other respiratory manifestations (principal); J44.1 Chronic obstructive pulmonary disease with (acute) exacerbation; R26.81 Unsteadiness on feet; I48.0 Paroxysmal atrial fibrillation; E78.00 Pure hypercholesterolemia, unspecified; K20.90 Esophagitis, unspecified without bleeding; D35.2 Benign neoplasm of pituitary gland; R73.01 Impaired fasting glucose; E03.9 Hypothyroidism, unspecified; M54.41 Lumbago with sciatica, right side; G89.29 Other chronic pain; M54.2 Cervicalgia | CPT/HCPCS: 96127; 99212 ==

== ENCOUNTER 2024-10-04 11:03 | Outpatient (AMB) | payer MEDICARE, SELFPAY ==
[2024-10-04 11:06] VITALS: BMI 27.9
--- NOTE | 2024-10-04 11:06 | MHC.OFFVIS ---
Vital Signs 10/04/24 11:06 Height 5 ft 6 in Weight 173 lb BMI 27.9 Intake Visit Reasons: OV - B/L shoulder pain, left hurts more Intake Note: Ritu is a right hand dominant female who presents to the office today for bilateral shoulder pain. Pt states the left hurts more than the right. Pt states about 2 weeks ago she fell and went to [facility] and has broken ribs and a fractured right shoulder. Last cortisone injection was in 2022 in her right shoulder. Allergies latex [LATEX] Allergy (Intermediate, Verified 10/04/24 11:07) BLISTERS HPI HPI OV - B/L shoulder pain, left hurts more: Details: Ritu is a right hand dominant female who presents to the office today for bilateral shoulder pain. Pt states the left hurts more than the right. Pt states about 2 weeks ago she fell and went to [facility] and has broken ribs and a fractured right shoulder. Last cortisone injection was in 2022 in her right shoulder. [facility] Medical History Esophagitis Atrial fibrillation Osteoporosis Overweight (BMI 25.0-29.9) Pituitary macroadenoma HTN (hypertension) Hypokalemia Colonoscopy refused Pure hypercholesterolemia Acquired hypothyroidism Sjogren's syndrome Primary osteoarthritis, right shoulder Obesity (BMI 30-39.9) Depression Sjogren's disease Anemia Impaired fasting glucose Pure hypercholesterolemia COPD (chronic obstructive pulmonary disease) Acquired hypothyroidism Sacral dysfunction Right-sided low back pain with right-sided sciatica Anxiety Surgical History History of right hip replacement Closed displaced fracture of right patella Right carpal tunnel syndrome (~2010) H/O: hysterectomy Family History Father CAD (coronary artery disease) Thyroid disease CVD (cardiovascular disease) Mother CVD (cardiovascular disease) Scleroderma Sister No problems noted. Brother No problems noted. Sister No problems noted. Other Closed displaced fracture of right patella Social History Housing: House Alcohol intake: former Patient Tobacco Use Status: Former Tobacco user e-Cigarette/Vaping Use: Never Used Second Hand Smoke Exposure: Yes Substance Use Type: Marijuana service: No Current occupational status: retired and disabled Cognitive needs: Yes (cane) Hearing needs: No Vision needs: No Physical Exam Vital Signs: BMI result Body Mass Index 27.9 Extrem Other: Right shoulder and arm post traumatic eccymosis. Moving fingers with palpable radial pulse Results Reviewed Results Reviewed: I personally reviewed relevant radiographs. 2 part proximal humerus fracture Assessment & Plan Assessment & Plan (1) 2-part disp fracture of surgical neck of humerus with routine healing: Code(s): S42.223D - 2-part displaced fracture of surgical neck of unspecified humerus, subsequent encounter for fracture with routine healing Category: Medical Plan: 2 wk s/p right proximal humerus fracture. PT and f/u 6 weeks with PA. Injection contraindicated due to fracture Orders: Orders XR shoulder RT min 2V Today M25.519 - Pain in unspecified shoulder Coding Level of Care Code Est Pt Level 3 (70499) Diagnoses 2-part disp fracture of surgical neck of humerus with routine healing S42.223D
== END 2024-10-04 13:04 | disposition home or self-care (01) ==
LOC: HO.HOS 11:03
PROVIDERS: PCP Internal Medicine; Visit Provider Orthopaedic Surgery
DX: S42.22 2-part fracture of surgical neck of humerus (principal)
CPT/HCPCS: 99213

== ENCOUNTER 2024-10-04 11:03 | Outpatient (REF) | payer MEDICARE, SELFPAY ==
--- NOTE | ~2024-10-04 | XR_ITS ---
CLINICAL HISTORY: M25.519 - Pain in unspecified shoulder Two views of the right shoulder. COMPARISON: None FINDINGS: Age-indeterminate fracture of the surgical neck of the right humerus. Fracture margins are poorly visualized. Humeral head remains seated within the glenoid. Mild hypertrophy of the right acromioclavicular joint. Visualized portions of the right lung are clear. [place] right curvature of the midthoracic spine. IMPRESSION: 1. Age-indeterminate fracture of the surgical neck of the right humerus. Recommend correlation with clinical history and prior imaging if available. Fracture margins are poorly visualized. 2. Mild acromioclavicular joint degenerative changes. This document has been electronically signed by: Siddhartha Rodriguez MD on 10/05/2024 15:54:35
== END 2024-10-04 11:04 | disposition home or self-care (01) ==
LOC: HO.HOSX 11:03
PROVIDERS: PCP Internal Medicine; Visit Provider Orthopaedic Surgery
DX: M25.511 Pain in right shoulder (principal); S42.22 2-part fracture of surgical neck of humerus
CPT/HCPCS: 73030; 99212

== ENCOUNTER → 2024-10-04 11:28 | Outpatient (BNV) | payer MEDICARE, SELFPAY | PROVIDERS: PCP Internal Medicine; Visit Provider Radiology Diagnostic Radiology | DX: M25.511 Pain in right shoulder (principal) | CPT/HCPCS: 73030 ==

== ENCOUNTER 2024-11-15 11:25 | Outpatient (AMB) | payer MEDICARE, SELFPAY ==
--- NOTE | 2024-11-15 11:31 | A.OFFVIS_ITS ---
Intake Visit Reasons: OV -6wk B/L shoulder pain, left hurts more Intake Note: Ritu is a 64 year old right hand dominant female who presents today for a follow up visit for her bilateral shoulder pain. Patient reports that she has history of a humerus fracture of the right shoulder. She reports that she has been having ongoing shoulder pain for some time now. She is taking tylenol, ibuprofen and hydrocodone for her pain . She has numbness and tingling in bilateral hands. She explains that she mostly has this numbness and tingling while urinating. She explains that she has not been able to daily tasks, and is staying in bed frequently. Allergies latex [LATEX] Allergy (Intermediate, Verified 10/04/24 11:07) BLISTERS HPI HPI OV -6wk B/L shoulder pain, left hurts more: Details: Ritu is a 64 year old right hand dominant female who presents today for a follow up visit for right proximal humerus fracture. She complains of bilateral shoulder pain. Her right shoulder is much better than it was and she has been active with physical therapy. She has pain at night. She reports that she has been having left shoulder pain for some time now. She is taking tylenol, ibuprofen and hydrocodone for her pain . She has numbness and tingling in bilateral hands. She explains that she mostly has this numbness and tingling while urinating. She explains that she has not been able to daily tasks, and is staying in bed frequently. [facility] Medical History Esophagitis Atrial fibrillation Osteoporosis Overweight (BMI 25.0-29.9) Pituitary macroadenoma HTN (hypertension) Hypokalemia Colonoscopy refused Pure hypercholesterolemia Acquired hypothyroidism Sjogren's syndrome Primary osteoarthritis, right shoulder Obesity (BMI 30-39.9) Depression Sjogren's disease Anemia Impaired fasting glucose Pure hypercholesterolemia COPD (chronic obstructive pulmonary disease) Acquired hypothyroidism Sacral dysfunction Right-sided low back pain with right-sided sciatica Anxiety Surgical History History of right hip replacement Closed displaced fracture of right patella Right carpal tunnel syndrome (~2010) H/O: hysterectomy Family History Father CAD (coronary artery disease) Thyroid disease CVD (cardiovascular disease) Mother CVD (cardiovascular disease) Scleroderma Sister No problems noted. Brother No problems noted. Sister No problems noted. Other Closed displaced fracture of right patella Social History Housing: House Alcohol intake: former Patient Tobacco Use Status: Former Tobacco user e-Cigarette/Vaping Use: Never Used Second Hand Smoke Exposure: Yes Substance Use Type: Marijuana service: No Current occupational status: retired and disabled Cognitive needs: Yes (cane) Hearing needs: No Vision needs: No Physical Exam Extrem Other: Right shoulder with 20/80/100/hip pocket Palpable radial pulse. Deltoid intact. Skin intact to light touch lateral deltoid. Left shoulder with positive Zaldivar and Neer, negative empty can. Office Procedures Joint Inj/Aspir; Non-Pain Clin Joint Injection/Drain Details: Injected 1 mL of Decadron and 3 mL 1% lidocaine and 3 mL of 0.25% Marcaine. Site was prepped using aseptic technique. Patient tolerated the procedure well. Shoulders, Hips, Knees, Shoulder Injection Large joint : Left Shoulder Coding Procedure code (CPT) selection complete Assessment & Plan Assessment & Plan (1) 2-part disp fracture of surgical neck of humerus with routine healing: Code(s): S42.223D - 2-part displaced fracture of surgical neck of unspecified humerus, subsequent encounter for fracture with routine healing Category: Medical Plan: Right shoulder is improving dramatically. She is doing pretty well. Continue activity as tolerated with weight-bearing as tolerated with resistance training as tolerated. I discussed what this means and that she should avoid pain and not overdo it but she is doing very well. (2) Left shoulder pain: Code(s): M25.512 - Pain in left shoulder Category: Medical Qualifiers: Chronicity: unspecified Qualified Code(s): M25.512 - Pain in left shoulder Plan: I injected her left shoulder. No additional intervention warranted. Coding Level of Care Code Est Pt Level 3 (24254) Complex EM visit Add On G2211 Diagnoses 2-part disp fracture of surgical neck of humerus with routine healing S42.223D Left shoulder pain, unspecified chronicity M25.512 Chronicity: unspecified CPT Codes Shoulders, Hips, Knees, - Shoulder Injection Large joint 50745: Left Shoulder ([id number])
--- OUTSIDE RECORDS SUMMARY | 2024-11-15 13:13 | XMS_ITS | Clinical Summary ---
Author Organization [facility] Address [address] [place] [address] Care Team Providers Care Applications Manager Name Role Phone Carlos Mata MD Primary Care Provider +1- [phone] Allergies Active Allergy Reactions Criticality Noted Date Comments Latex Hives Medium 03/29/2019 Medications simvastatin (ZOCOR) 20 MG tablet Take 20 [...] hours) as needed for severe pain. Active HYDROcodone-acet aminophen (NORCO) 10-325 mg per tablet Take 1 [...] spasms. Take 1-2 tabs TID prn Active hydroxychloroqui ne (PLAQUENIL) 200 MG tablet Take 200 mg by mouth 2 (two) times a day with meals. With food or milk. 04/15/2019 Active celeCOXIB (CeleBREX) 200 MG capsule Take 200 mg by mouth daily. 04/15/2019 Active Encounters Date Type Department Care Team Description 11/11/2024 Scanned Document [facility] [address] [place] [address] Provider, Generic 11/09/2024 Scanned Document [facility] [address] [place] [address] Provider, Generic 11/05/2024 Scanned Document [facility] [address] [place] [address] Provider, Generic 10/26/2024 Scanned Document [facility] [address] [place] [address] Provider, Generic 10/21/2024 Scanned Document [facility] [address] [place] [address] Provider, Generic 10/19/2024 Scanned Document [facility] [address] [place] [address] Provider, Generic 10/18/2024 Scanned Document [facility] [address] [place] [address] Provider, Generic 10/14/2024 Scanned Document [facility] [address] [place] [address] Provider, Generic 10/12/2024 Scanned Document [facility] [address] [place] [address] Provider, Generic 10/11/2024 Scanned Document [facility] [address] [place] [address] Provider, Generic 10/07/2024 Scanned Document [facility] [address] [place] [address] Provider, Generic 10/06/2024 Scanned Document [facility] [address] [address] Provider, Generic 10/05/2024 Scanned Document [facility] [address] [address] Provider, Generic 09/30/2024 Scanned Document [facility] [address] [address] Provider, Generic from Last 3 Months Social History Tobacco Use Types Packs/Day Years Used Date Smoking Tobacco: Never Assessed Comments Unknown Sex and Gender Information Value Date Recorded Sex Assigned at Not on file Legal Sex Female 6:16 PM EST Gender Identity Not on file Sexual Orientation [...] Virus Screening 1958 COVID-19 Vaccine (#1) 1963 DTaP/Tdap/Td Vaccines (1 - Tdap) 1977 Pneumococcal Vaccines 50+ (1 of 2 - PCV) 1977 Zoster (Shingles) Vaccine (1 of 2) 1977 Mammogram 1998 Colonoscopy 2003 RSV Vaccine 60 years and old er and Patients (1 - Risk 60-74 years 1-dose series) 2018 DXA Bone Density (Females,Ag es 65 and older) 2023 Influenza Vaccine 02/11/2025 Hepatitis B Vaccines Aged Out No long er eligible based on patient's age to complete this topic [place] [address] Care Teams Applications Manager Relationship Specialty Start Date End Date Carlos Mata MD [address] [place] [address] [place] [address] PCP - General Internal Medicine 03/23/19
--- OUTSIDE RECORDS SUMMARY | 2024-11-15 13:13 | XMS_ITS | Encounter Summary ---
Author Organization [facility] Address [address] [place] [address] Care Team Providers Care Kitchen Aide Name Role Phone Carlos Mata MD Primary Care Provider +1- [phone] Encounter Details Date Type Department Care Team (Late st Contact Info) Description 11/05/2024 Scanned Document [facility] [address] [address] Provider, Generic Social History Tobacco Use Types Packs/Day Years Used Date Smoking Tobacco: Never Assessed Comments Unknown Sex and Gender Information Value Date Recorded Sex Assigned at Not on file Legal Sex Female 6:16 PM EST Gender Identity Not on file Sexual Orientation Not on file documented as of this encounter Plan of Treatment Not on file documented as of this encounter Visit Diagnoses Not on filedocumented in this encounter Care Teams Kitchen Aide Relationship Specialty Start Date End Date Carlos Mata MD [address] [place] [address] [place] [address] PCP - General Internal Medicine 03/23/19 documented as of this encounter
--- OUTSIDE RECORDS SUMMARY | 2024-11-15 13:13 | XMS_ITS | Encounter Summary ---
Author Organization [facility] Address [address] [place] [address] Care Team Providers Care Ticker Maintainer Name Role Phone Carlos Mata MD Primary Care Provider +1- [phone] Encounter Details Date Type Department Care Team (Late st Contact Info) Description 11/11/2024 Scanned Document [facility] [address] [address] Provider, Generic Social History Tobacco [...] on filedocumented in this encounter Care Teams Ticker Maintainer Relationship Specialty Start Date End Date Carlos Mata MD [address] [place] [address] [place] [address] PCP - General Internal Medicine 03/23/19 documented as of this encounter
--- OUTSIDE RECORDS SUMMARY | 2024-11-15 13:13 | XMS_ITS | Encounter Summary ---
Author Organization [facility] Address [address] [place] [address] Care Team Providers Care Lending Manager Name Role Phone Carlos Mata MD Primary Care Provider +1- [phone] Encounter Details Date Type Department Care Team (Late st Contact Info) Description 10/11/2024 Scanned Document [facility] [address] [address] Provider, Generic Social History Tobacco [...] on filedocumented in this encounter Care Teams Lending Manager Relationship Specialty Start Date End Date Carlos Mata MD [address] [place] [address] [place] [address] PCP - General Internal Medicine 03/23/19 documented as of this encounter
--- OUTSIDE RECORDS SUMMARY | 2024-11-15 13:13 | XMS_ITS | Encounter Summary ---
Author Organization [facility] Address [address] [place] [address] Care Team Providers Care Biology Teacher Name Role Phone Carlos Mata MD Primary Care Provider +1- [phone] Encounter Details Date Type Department Care Team (Late st Contact Info) Description 10/21/2024 Scanned Document [facility] [address] [address] Provider, Generic Social History Tobacco [...] on filedocumented in this encounter Care Teams Biology Teacher Relationship Specialty Start Date End Date Carlos Mata MD [address] [place] [address] [place] [address] PCP - General Internal Medicine 03/23/19 documented as of this encounter
--- OUTSIDE RECORDS SUMMARY | 2024-11-15 13:13 | XMS_ITS | Encounter Summary ---
Author Organization [facility] Address [address] [place] [address] Care Team Providers Care Real Estate Firm Manager Name Role Phone Carlos Mata MD Primary Care Provider +1- [phone] Encounter Details Date Type Department Care Team (Late st Contact Info) Description 10/19/2024 Scanned Document [facility] [address] [address] Provider, Generic Social History Tobacco [...] on filedocumented in this encounter Care Teams Real Estate Firm Manager Relationship Specialty Start Date End Date Carlos Mata MD [address] [place] [address] [place] [address] PCP - General Internal Medicine 03/23/19 documented as of this encounter
--- OUTSIDE RECORDS SUMMARY | 2024-11-15 13:13 | XMS_ITS | Encounter Summary ---
Author Organization [facility] Address [address] [place] [address] Care Team Providers Care Compressed Gas Plant Worker Name Role Phone Carlos Mata MD Primary Care Provider +1- [phone] Encounter Details Date Type Department Care Team (Late st Contact Info) Description 10/05/2024 Scanned Document [facility] [address] [address] Provider, Generic Social History Tobacco [...] on filedocumented in this encounter Care Teams Compressed Gas Plant Worker Relationship Specialty Start Date End Date Carlos Mata MD [address] [place] [address] [place] [address] PCP - General Internal Medicine 03/23/19 documented as of this encounter
--- OUTSIDE RECORDS SUMMARY | 2024-11-15 13:13 | XMS_ITS | Encounter Summary ---
Author Organization [facility] Address [address] [place] [address] Care Team Providers Care Immersion Metal Cleaner Name Role Phone Carlos Mata MD Primary Care Provider +1- [phone] Encounter Details Date Type Department Care Team (Late st Contact Info) Description 10/18/[address] [facility] [address] [address] Provider, Generic Social History Tobacco [...] on filedocumented in this encounter Care Teams Immersion Metal Cleaner Relationship Specialty Start Date End Date Carlos Mata MD [address] [place] [address] [place] [address] PCP - General Internal Medicine 03/23/19 documented as of this encounter
--- OUTSIDE RECORDS SUMMARY | 2024-11-15 13:13 | XMS_ITS | Encounter Summary ---
Author Organization [facility] Address [address] [place] [address] Care Team Providers Care Hvac R Instructor Name Role Phone Carlos Mata MD Primary Care Provider +1- [phone] Encounter Details Date Type Department Care Team (Late st Contact Info) Description 10/07/2024 Scanned Document [facility] [address] [address] Provider, Generic Social History Tobacco [...] on filedocumented in this encounter Care Teams Hvac R Instructor Relationship Specialty Start Date End Date Carlos Mata MD [address] [place] [address] [place] [address] PCP - General Internal Medicine 03/23/19 documented as of this encounter
--- OUTSIDE RECORDS SUMMARY | 2024-11-15 13:13 | XMS_ITS | Encounter Summary ---
Author Organization [facility] Address [address] [place] [address] Care Team Providers Care Telephone Service Adviser Name Role Phone Carlos Mata MD Primary Care Provider +1- [phone] Encounter Details Date Type Department Care Team (Late st Contact Info) Description 10/14/2024 Scanned Document [facility] [address] [address] Provider, Generic Social History Tobacco [...] on filedocumented in this encounter Care Teams Telephone Service Adviser Relationship Specialty Start Date End Date Carlos Mata MD [address] [place] [address] [place] [address] PCP - General Internal Medicine 03/23/19 documented as of this encounter
--- OUTSIDE RECORDS SUMMARY | 2024-11-15 13:13 | XMS_ITS | Encounter Summary ---
Author Organization [facility] Address [address] [place] [address] Care Team Providers Care Coloring Machine Operator Name Role Phone Carlos Mata MD Primary Care Provider +1- [phone] Encounter Details Date Type Department Care Team (Late st Contact Info) Description 09/30/2024 Scanned Document [facility] [address] [address] Provider, Generic Social History Tobacco [...] on filedocumented in this encounter Care Teams Coloring Machine Operator Relationship Specialty Start Date End Date Carlos Mata MD [address] [place] [address] [place] [address] PCP - General Internal Medicine 03/23/19 documented as of this encounter
--- OUTSIDE RECORDS SUMMARY | 2024-11-15 13:13 | XMS_ITS | Encounter Summary ---
Author Organization [facility] Address [address] [place] [address] Care Team Providers Care Trans Router Name Role Phone Carlos Mata MD Primary Care Provider +1- [phone] Encounter Details Date Type Department Care Team (Late st Contact Info) Description 10/12/2024 Scanned Document [facility] [address] [address] Provider, Generic Social History Tobacco [...] on filedocumented in this encounter Care Teams Trans Router Relationship Specialty Start Date End Date aCrlos Mata MD [address] [place] [address] [place] [address] PCP - General Internal Medicine 03/23/19 documented as of this encounter
--- OUTSIDE RECORDS SUMMARY | 2024-11-15 13:13 | XMS_ITS | Encounter Summary ---
Author Organization [facility] Address [address] [place] [address] Care Team Providers Care Tape Cutting Machine Operator Name Role Phone Carlos Mata MD Primary Care Provider +1- [phone] Encounter Details Date Type Department Care Team (Late st Contact Info) Description 10/06/2024 Scanned Document [facility] [address] [address] Provider, Generic Social History Tobacco [...] on filedocumented in this encounter Care Teams Tape Cutting Machine Operator Relationship Specialty Start Date End Date Carlos Mata MD [address] [place] [address] [place] [address] PCP - General Internal Medicine 03/23/19 documented as of this encounter
--- OUTSIDE RECORDS SUMMARY | 2024-11-15 13:13 | XMS_ITS | Encounter Summary ---
Author Organization [facility] Address [address] [place] [address] Care Team Providers Care Chute Loader Name Role Phone Carlos Mata MD Primary Care Provider +1- [phone] Encounter Details Date Type Department Care Team (Late st Contact Info) Description 10/26/2024 Scanned Document [facility] [address] [address] Provider, Generic Social History Tobacco [...] on filedocumented in this encounter Care Teams Chute Loader Relationship Specialty Start Date End Date Carlos Mata MD [address] [place] [address] [place] [address] PCP - General Internal Medicine 03/23/19 documented as of this encounter
--- OUTSIDE RECORDS SUMMARY | 2024-11-15 13:13 | XMS_ITS | Encounter Summary ---
Author Organization [facility] Address [address] [place] [address] Care Team Providers Care Temple Meat Cutter Name Role Phone Carlos Mata MD Primary Care Provider +1- [phone] Encounter Details Date Type Department Care Team (Late st Contact Info) Description 11/09/2024 Scanned Document [facility] [address] [address] Provider, Generic Social History [...] on filedocumented in this encounter Care Teams Temple Meat Cutter Relationship Specialty Start Date End Date Carlos Mata MD [address] [place] [address] [place] [address] PCP - General Internal Medicine 03/23/19 documented as of this encounter
== END 2024-11-15 12:08 | disposition home or self-care (01) ==
LOC: HO.HOS 11:26
PROVIDERS: PCP Internal Medicine; Visit Provider Orthopaedic Surgery
DX: M25.512 Pain in left shoulder (principal); S42.221D 2-part displaced fracture of surgical neck of right humerus, subsequent encounter for fracture with routine healing
CPT/HCPCS: 20610; 99213

== ENCOUNTER → 2024-11-15 11:25 | Outpatient (BNVA) | payer MEDICARE, SELFPAY | PROVIDERS: PCP Internal Medicine; Visit Provider Orthopaedic Surgery | DX: M25.512 Pain in left shoulder (principal); S42.221D 2-part displaced fracture of surgical neck of right humerus, subsequent encounter for fracture with routine healing; X58.XXXD Exposure to other specified factors, subsequent encounter | CPT/HCPCS: 20610; 99212; J0665; J1100; J2003 ==

== ENCOUNTER 2024-12-08 10:05 | Outpatient (AMB) | payer MEDICARE, SELFPAY ==
[2024-12-08 10:20] VITALS: BP 118/76; PULSE 67; O2SAT 97; BMI 28.9
--- NOTE | 2024-12-08 10:20 | A.OFFPC_ITS ---
Vital Signs 12/08/24 10:20 Height 5 ft 6 in Weight 179 lb BMI 28.9 BP 118/76 Blood Pressure Location Lt brachial Position Sitting Pulse 67 Pulse Source Pulse Oximeter Pulse Oximetry (%) 97 Oxygen Delivery Method Room Air Intake Visit Reasons: f/u HTN Research Archaeologist Required: No Accompanied by: Self / Same As Patient Allergies latex [LATEX] Allergy (Intermediate, Verified 12/08/24 11:07) BLISTERS Medication List - Last Reconciled 12/08/24 by Carlos Mata MD albuterol sulfate 2.5 mg inhalation Q4H PRN blood pressure monitor (Blood Pressure Kit) As directed buspirone 30 mg PO BID 90 days cabergoline 0.25 mg (1/2 x 0.5 mg) PO .weekly 3 months doxepin 10 mg PO DAILY PRN Eliquis (apixaban) 5 mg PO BID 90 days NS escitalopram oxalate 20 mg PO DAILY hydrocodone-acetaminophen 10-325 mg 1 tab PO .2 to 3 times a day PRN 15 days hydroxychloroquine 200 mg PO BID 90 days levothyroxine 150 mcg PO DAILY 90 days lidocaine 5% 1 appl topical BID-TID PRN lorazepam 1 mg PO TID 90 days metoprolol tartrate 25 mg PO BID 90 days pantoprazole 40 mg PO DAILY 90 days [QUAD CANE As directed] [teds hose As directed] tizanidine 8 mg (2 x 4 mg) PO Q8H 90 days tramadol 50 mg PO TID 90 days vibegron (Gemtesa) 75 mg PO DAILY [WRIST BRACES, bilateral (MEDIUM) As directed] Tobacco use date assessed: 12/08/24 Fall risk assessment: 2 + Falls in past year Last assessed Fall Risk: 12/08/24 Dental Screening Dental Screen Date: 12/08/24 Did you have a dental visit in the last 12 months?: No Did you have a dental problem in the last 6 months where you did not have access to dental care?: No Was dental information given to patient?: No HPI f/u HTN HPI Details Patient comes in today for her follow up visit States that she just started PT for both shoulders recently - was referred for PT by orthopedics earlier this month She still has increased pain in both shoulders and it is still too early to tell if physical therapy is helping with her shoulders She has also been experiencing problems sleeping at night for a while now States that she feels okay otherwise She denies any headaches or dizziness Denies any chest pains, no increased shortness of breath No nausea/vomiting, no abdominal pain No change in bowel habits noted [facility] Medical History (Updated 12/13/24 @ 02:42 by Carlos Mata MD) Insomnia Esophagitis Atrial fibrillation Osteoporosis Overweight (BMI 25.0-29.9) Pituitary macroadenoma HTN (hypertension) Hypokalemia Colonoscopy refused Pure hypercholesterolemia Acquired hypothyroidism Sjogren's syndrome Primary osteoarthritis, right shoulder Obesity (BMI 30-39.9) Depression Sjogren's disease Anemia Impaired fasting glucose Pure hypercholesterolemia COPD (chronic obstructive pulmonary disease) Acquired hypothyroidism Sacral dysfunction Right-sided low back pain with right-sided sciatica Anxiety Surgical History History of right hip replacement Closed displaced fracture of right patella Right carpal tunnel syndrome (~2010) H/O: hysterectomy Family History Father CAD (coronary artery disease) Thyroid disease CVD (cardiovascular disease) Mother CVD (cardiovascular disease) Scleroderma Sister No problems noted. Brother No problems noted. Sister No problems noted. Other Closed displaced fracture of right patella Social History Housing: House Alcohol intake: former Patient Tobacco Use Status: Former Tobacco user e-Cigarette/Vaping Use: Never Used Second Hand Smoke Exposure: Yes Substance Use Type: Marijuana service: No Current occupational status: retired and disabled Cognitive needs: Yes (cane) Hearing needs: No Vision needs: No Questionnaire PHQ-9 Over the last 2 weeks, how often have you been bothered by any of the following problems? 1. Little interest or pleasure in doing things: nearly every day 2. Feeling down, depressed, or hopeless: several days 3. Trouble falling or staying asleep, or sleeping too much: several days 4. Feeling tired or having little energy: nearly every day 5. Poor appetite or overeating: nearly every day 6. Feeling bad about yourself - or that you are a failure or have let yourself or your family down: not at all 7. Trouble concentrating on things, such as reading the newspaper or watching television: several days 8. Moving or speaking so slowly that other people could have noticed. Or the opposite - being so fidgety or restless that you have been moving around a lot more than usual: not at all 9. Thoughts that you would be better off or of hurting yourself in some way: not at all Total score: 12 Depression Screening Interpretation: Negative (is on Rx for her depression) Depression Screening Done: Yes Source: Developed by Drs. David Soares, Keiry Rodgers, Donn Walls and colleagues, with an educational violet from [employer]. Thrive Questionnaire Date Thrive assessed: 12/08/24 I am a: Patient What is your living situation today?: I have a steady place to live Within the past 12 months, did the food you bought not last and you didn't have the money to get more?: Never true Within the past 12 months, did you worry whether your food would run out before you got money to buy more?: Never true Do you have trouble paying for medicines?: No Do you have trouble getting transportation to medical appointments?: No Do you have trouble paying your heating and electricity bill?: No Do you have trouble taking care of your child, family member or friend?: No Do you have trouble with day-to-day activities such as bathing, preparing meals, shopping, managing finances, etc.?: No Are you currently unemployed and looking for a job?: No Are you interested in more education?: No Please select the resources that you would like help with: None Currently or been in a relationship where the following occur: No concerns reported THRIVE Score: 0 AUDIT C Alcohol Use Questionnaire (AUDIT-C) 1. How often do you have a drink containing alcohol?: Never 3. How often do you have six or more drinks on one occasion?: Never Total Score: 0 Score Reviewed/Action Taken: Yes PILY-7 AMB Questionnaire PILY-7 Date PILY - 7 assessed: 12/08/24 Feeling nervous, anxious, or on edge: 0 = Not at all Not being able to stop or control worryin = Not at all Worrying too much about different things: 0 = Not at all Trouble relaxin = Not at all Being so restless that it is hard to sit still: 0 = Not at all Becoming easily annoyed or irritable: 0 = Not at all Feeling afraid as if something awful might happen: 0 = Not at all Total PILY-7 score (0-4 normal; 5-9 mild; 10-14 moderate; 15-21 severe): 0 Source: Developed by Drs. David Soares, Keiry Rodgers, Donn Walls and colleagues, with an educational violet from [employer]. Review of Systems Const Denies chills, Reports difficulty sleeping, Reports fatigue, Denies fever(s) and Denies headache(s) ENT Reports dysphagia (on and off), Denies dizziness, Denies otalgia, Denies headache(s), Reports neck pain (increasing lately), Denies odynophagia and Denies sore throat Card Denies chest pain, Denies irregular heart rhythm, Denies palpitations and Re ports dyspnea on exertion (mild) Resp Reports chest congestion, Reports cough (recurrent ), Reports excessive phlegm production, Reports dyspnea on exertion (mild) and Denies wheezing GI Denies abdominal pain, Denies constipation, Reports dysphagia (on and off), Denies heartburn, Denies diarrhea, Denies nausea, Denies odynophagia and Denies vomiting Denies difficulty voiding, Denies nocturia, Denies dysuria and Denies urinary urgency Musc Details: (+) right leg pain and swelling Reports abnormal gait (unsteady), Reports back pain (over the lower back), Reports arthralgias (involving multiple joints, including both shoulders and both hips) and Reports neck pain (increasing lately) Skin/Breast Denies rash Neuro Reports abnormal gait (unsteady), Denies dizziness, Denies headache(s) and Repo rts tremor(s) (patient describes as recurrent shakes due to her anxiety) Psych Reports anxiety and Reports depression Endo Reports fatigue and Denies palpitations Aller/Immun Denies wheezing Physical exam (Primary Care) Vital Signs: Last Vital Signs Pulse 67 12/08/24 10:20 BP 118/76 12/08/24 10:20 Pulse Ox 97 12/08/24 10:20 Oxygen Delivery Method Room Air 12/08/24 10:20 BMI result Body Mass Index 28.9 Tobacco/Smoking Status: Tobacco use Status Tobacco use date assessed 12/08/24 12/08/24 10:34 Patient Tobacco Use Status Former Tobacco user 12/08/24 10:21 e-Cigarette/Vaping Use Never Used 12/08/24 10:21 PHQ-9: PHQ-9 Score PHQ-9: Total score 12 12/08/24 11:09 Depression Screening Interpretation: Negative (is on Rx for her depression) Thrive Assessment: Date of Thrive Assessment Date Thrive assessed 12/08/24 12/08/24 10:34 Currently or been in a relationship where the following occur: No concerns reported Const General: no acute distress and alert HENMT Ears: TM's normal bilaterally and EAC's normal Throat: Yes posterior oropharynx normal and Yes tonsils normal (no TP congestion) Neck Neck: No lymphadenopathy and Yes tender Thyroid: Thyroid normal Resp Auscultation: no rales, rhonchi (scattered) throughout, no wheezes and diminished lung sounds (significantly) bilateral Cardio Rate: regular rate Rhythm: regular rhythm Heart sounds: no murmurs GI Palpation (GI): Soft to palpation and nontender Auscultation: normal bowel sounds General: Yes no CVA tenderness Back/Spine/Pelvis Back: no CVA tenderness Cervical Spine: Cervical spine tenderness Thoracic/Lumbar Spine: lumbar spinal tenderness Skin Rashes: no rashes Extrem General: No clubbing, No cyanosis and Yes edema (1+, over the right lower extremity) Coding Level of Care Code Est Pt Level 4 (28173) Diagnoses Chronic obstructive pulmonary disease, unspecified COPD type J44.9 COPD type: unspecified COPD Paroxysmal atrial fibrillation I48.0 Pure hypercholesterolemia E78.00 Esophagitis K20.90 Pituitary macroadenoma D35.2 Impaired fasting glucose R73.01 Acquired hypothyroidism E03.9 Chronic right-sided low back pain with right-sided sciatica M54.41; G89.29 Chronicity: chronic Neck pain M54.2 Sjogren's syndrome, with unspecified organ involvement M35.00 Sjogren's organ involvement: unspecified organ involvement Vitamin D deficiency E55.9 Age-related osteoporosis with current pathological fracture, sequela M80.00XS Osteoporosis type: age-related Presence of current pathological fracture: with current pathological fracture Encounter type: sequela Left shoulder pain, unspecified chronicity M25.512 Chronicity: unspecified Insomnia, unspecified type G47.00 Insomnia type: unspecified Anxiety F41.9 Episode of recurrent major depressive disorder, unspecified depression episode severity F33.9 Depression Type: major depressive disorder Major depression recurrence: recurrent Active/Remission status: currently active Major depression episode severity: unspecified Obesity (BMI 30-39.9) E66.9 Assessment & Plan Assessment & Plan (1) COPD (chronic obstructive pulmonary disease): Code(s): J44.9 - Chronic obstructive pulmonary disease, unspecified Category: Medical Qualifiers: COPD type: unspecified COPD Qualified Code(s): J44.9 - Chronic obstructive pulmonary disease, unspecified Plan: Patient still appears to have inadequately controlled COPD Continue Spiriva HandiHaler 18 mcg QD and Albuterol HFA 2 puffs QID PRN Chest CT done at the hospital a few months ago revealed findings suggestive of early pulmonary fibrosis Will consider referring her for pulmonary follow up and management if her symptoms do not improve at all over the next few months (2) Paroxysmal atrial fibrillation: Code(s): I48.0 - Paroxysmal atrial fibrillation Category: Medical Plan: Patient was found to be in atrial fibrillation with rapid ventricular response during her hospitalization at [facility] a few months ago She converted back to normal sinus rhythm on Diltiazem and required Diltiazem drip for a while; is now on Metoprolol 25 mg BID She is currently in sinus rhythm and states that she's had no recurrence of symptoms of palpitations since her discharge from the hospital a few months ago She has a CHADS-VASc score of 3 and is currently still on Eliquis 5 mg BID for thromboembolism prophylaxis Cardiology has recommended to continue with rhythm approach for now Follow up with cardiology as scheduled (3) Pure hypercholesterolemia: Code(s): E78.00 - Pure hypercholesterolemia, unspecified Category: Medical Plan: Patient had some labs done when she was admitted to the hospital a few months ago these did not include a fasting lipid profile Reinforced low cholesterol diet Continue Simvastatin 20 mg QD Will recheck her labs and fasting lipids in 3 months for follow up (4) Esophagitis: Code(s): K20.90 - Esophagitis, unspecified without bleeding Category: Medical Plan: She was seen by gastroenterology and had an upper GI series with small bowel follow through ordered for further evaluation a few months ago but patient did not go for her procedure - admits that she got scared about what the test might reveal and is hoping that her symptoms may just subside gradually over time CT angiogram of the chest done while she was in the hospital revealed findings o f esophagitis, which is most likely the reason for her nausea and vomiting last month as well as her recurrent dysphagia in the past Reinforced dietary restrictions Continue Pantoprazole 40 mg QD Follow-up with GI as scheduled (5) Pituitary macroadenoma: Code(s): D35.2 - Benign neoplasm of pituitary gland Category: Medical Plan: Patient was on Cabergoline 0.25 mg once a week previously but she stopped taking it when her last Rx ran out She was seen by neurology for follow up back in April 2023 - MRI showed a significant decrease in the size of a large sellar and suprasellar mass consistent with a pituitary macroadenoma She also had a prolactin level done a few months ago that came back significantly elevated at 196.5 ng/ml We have since referred her to endocrinology for further evaluation and management of her pituitary macroadenoma and hyperprolactinemia but it looks like she has not yet been seen Follow up also with neurology as scheduled (6) Impaired fasting glucose: Code(s): R73.01 - Impaired fasting glucose Category: Medical Plan: Her FBS was elevated at 129 mg/dl on her most recent labs done a few months ago; her in-office HgbA1c was normal at 5.3% and 5.7% when previously checked Reinforced low calorie diet/exercise as tolerated (7) Acquired hypothyroidism: Code(s): E03.9 - Hypothyroidism, unspecified Category: Medical Plan: Continue Levothyroxine 150 mcg QD Will recheck her TFTs in 3 months for follow up (8) Right-sided low back pain with right-sided sciatica: Code(s): M54.41 - Lumbago with sciatica, right side Category: Medical Qualifiers: Chronicity: chronic Qualified Code(s): M54.41 - Lumbago with sciatica, right side; G89.29 - Other chronic pain Plan: Reinforced activity and weight-lifting restrictions Continue Gabapentin 600 mg 3 times a day and Tramadol 50 mg TID PRN for pain Continue [place] 10-325 mg 1 tablet 2 to 3 times a day as needed for increased pain Patient was receiving physical therapy at the beginning of 2019 - states that therapy was helping but this was cut short by the COVID-19 pandemic and she has not resumed PT since as patient does not want to get vaccinated against COVID and she wants to limit her exposure risks Adds that physical therapy for her is at least a [address] from her house and she cannot afford the gas money required for her to get to her PT sessions so she did not pursue PT back then but she is currently back to attending PT for her shoulders at this time (9) Neck pain: Code(s): M54.2 - Cervicalgia Category: Medical Plan: She was sent for cervical spine x-rays for further evaluation of her recently increasing neck pain but she has not gotten this done yet so far (10) Sjogren's disease: Code(s): M35.00 - Sjogren syndrome, unspecified Category: Medical Qualifiers: Sjogren's organ involvement: unspecified organ involvement Qualified Code(s): M35.00 - Sicca syndrome, unspecified Plan: Continue Hydroxychloroquine tablets 200 mg BID Follow up with rheumatology as scheduled (11) Vitamin D deficiency: Code(s): E55.9 - Vitamin D deficiency, unspecified Category: Medical Plan: Continue Vitamin D3 2000 units QD (12) Osteoporosis: Code(s): M81.0 - Age-related osteoporosis without current pathological fracture Category: Medical Qualifiers: Osteoporosis type: age-related Presence of current pathological fracture: with current pathological fracture Encounter type: sequela Qualified Code(s): M80.00XS - Age-related osteoporosis with current pathological fracture, unspecified site, sequela Plan: Her repeat BMD done a few months ago on 01/28/2024 revealed (+) severe os teoporosis based on the lowest T-score value of -4.4 in the femoral neck and history of fracture Her BMD in the left femur has declined significantly from her previous BMD; BMD in the AP spine is unchanged from previous Fall precautions reinforced She is also advised to continue with her daily oral calcium and vitamin D supplements She is supposed to exercise regularly but her activity tolerance is very limited, given her multiple issues We have also referred her to endocrinology at her last visit for further evaluation and management but she has not yet been seen (13) Left shoulder pain: Code(s): M25.512 - Pain in left shoulder Category: Medical Qualifiers: Chronicity: unspecified Qualified Code(s): M25.512 - Pain in left shoulder Plan: Patient was sent for x-rays of the left shoulder previously for further evaluation but she did not get this done She was seen by orthopedics and just received a cortisone injection into her left shoulder with some relief She is now going to physical therapy for her bilateral shoulder pain (14) Insomnia: Code(s): G47.00 - Insomnia, unspecified Category: Medical Qualifiers: Insomnia type: unspecified Qualified Code(s): G47.00 - Insomnia, unspecified Plan: Sleep hygiene discussed Will start patient on Trazodone 50 mg Q HS PRN (15) Anxiety: Code(s): F41.9 - Anxiety disorder, unspecified Category: Medical Plan: Continue Lorazepam 1 mg TID PRN, Buspirone 30 mg BID, Escitalopram 20 mg QD and Doxepin 10 mg Q HS (16) Depression: Code(s): F32.9 - Major depressive disorder, single episode, unspecified Category: Medical Qualifiers: Depression Type: major depressive disorder Major depression recurrence: recurrent Active/Remission status: currently active Major depression episode severity: unspecified Qualified Code(s): F33.9 - Major depressive disorder, re current, unspecified Plan: Continue Escitalopram 20 mg QD She could not tolerate Mirtazapine (leg cramps) She is also seeing a therapist regularly/weekly - to continue as scheduled (17) Obesity (BMI 30-39.9): Code(s): E66.9 - Obesity, unspecified Category: Medical Plan: Reinforced diet; exercise and weight loss are unrealistic given patient's physical limitations and issues Plan Follow up in 3 months Orders: Orders Comprehensive [place]. Panel Fast 3 Months E78.00 - Pure hypercholesterolemia, unspecified, M25.50 - Pain in unspecified joint, R53.83 - Other fatigue Free T4 (Free Thyroxine) 3 Months E03.9 - Hypothyroidism, unspecified, M25.50 - Pain in unspecified joint, R53.83 - Other fatigue Thyroid Stimulating Hormone 3 Months E03.9 - Hypothyroidism, unspecified, M25.50 - Pain in unspecified joint, R53.83 - Other fatigue Vitamin B12 and Folate 3 Months E53.8 - Deficiency of other specified B group vitamins, M25.50 - Pain in unspecified joint, R53.83 - Other fatigue Vitamin D 25-OH Total 3 Months E55.9 - Vitamin D deficiency, unspecified, M25.50 - Pain in unspecified joint, R53.83 - Other fatigue Hemoglobin A1c 3 Months R53.83 - Other fatigue, R73.01 - Impaired fasting glucose Erythrocyte Sedimentation Rate 3 Months M25.50 - Pain in unspecified joint, M7 9.7 - Fibromyalgia, R53.83 - Other fatigue Lyme IgG/IgM w/reflex to WB 3 Months M25.50 - Pain in unspecified joint, R53.83 - Other fatigue Complete Blood Count Auto Diff 3 Months D64.9 - Anemia, unspecified, M25.50 - Pain in unspecified joint, R53.83 - Other fatigue Lipid Panel 3 Months E78.00 - Pure hypercholesterolemia, unspecified, M25.50 - Pain in unspecified joint, R53.83 - Other fatigue UA CC w/rflx Micro + Cult 3 Months M25.50 - Pain in unspecified joint, R30.0 - Dysuria, R53.83 - Other fatigue [place] Reflex Titer and Pattern 3 Months M25.50 - Pain in unspecified joint, R53.83 - Other fatigue C Reactive Protein 3 Months M25.50 - Pain in unspecified joint, R53.83 - Other fatigue Rheumatoid Factor 3 Months M25.50 - Pain in unspecified joint, R53.83 - Other fatigue Medications: New trazodone 50 mg PO BEDTIME PRN 30 tabs 0RF sleep
--- OUTSIDE RECORDS SUMMARY | 2024-12-08 11:04 | XMS_ITS | Encounter Summary ---
Author Organization [facility] Address [address] [place] [address] Care Team Providers Care Byproducts Operator Name Role Phone Carlos Mata MD Primary Care Provider [phone]- [phone] Encounter Details Date Type Department Care Team (Late st Contact Info) Description 10/05/2024 Scanned Document [facility] at Home [address] [id number] Provider, Generic Social History Tobacco [...] on filedocumented in this encounter Care Teams Byproducts Operator Relationship Specialty Start Date End Date Carlos Mata MD [address] [place] [address] [place] [id number] PCP - General Internal Medicine 03/23/19 documented as of this encounter
== END 2024-12-08 11:24 | disposition home or self-care (01) ==
LOC: HO.HMCH 10:06
PROVIDERS: PCP Internal Medicine; Visit Provider Internal Medicine
DX: J44.9 Chronic obstructive pulmonary disease, unspecified (principal); I48.0 Paroxysmal atrial fibrillation; D35.2 Benign neoplasm of pituitary gland; E78.00 Pure hypercholesterolemia, unspecified; K20.90 Esophagitis, unspecified without bleeding; R73.01 Impaired fasting glucose; E03.9 Hypothyroidism, unspecified; M54.41 Lumbago with sciatica, right side; G89.29 Other chronic pain; M54.2 Cervicalgia; M35.00 Sjogren syndrome, unspecified; E55.9 Vitamin D deficiency, unspecified

== ENCOUNTER → 2024-12-08 10:05 | Outpatient (BNVA) | payer MEDICARE, SELFPAY | PROVIDERS: PCP Internal Medicine; Visit Provider Internal Medicine | DX: I48.0 Paroxysmal atrial fibrillation (principal); J44.9 Chronic obstructive pulmonary disease, unspecified; E78.00 Pure hypercholesterolemia, unspecified; K20.90 Esophagitis, unspecified without bleeding; D35.2 Benign neoplasm of pituitary gland; R73.01 Impaired fasting glucose; E03.9 Hypothyroidism, unspecified; M54.41 Lumbago with sciatica, right side; G89.29 Other chronic pain; M54.2 Cervicalgia; M35.00 Sjogren syndrome, unspecified; E55.9 Vitamin D deficiency, unspecified; M80.00XS Age-related osteoporosis with current pathological fracture, unspecified site, sequela; M25.512 Pain in left shoulder; G47.00 Insomnia, unspecified; F41.9 Anxiety disorder, unspecified; F33.9 Major depressive disorder, recurrent, unspecified; E66.9 Obesity, unspecified; Z68.28 Body mass index [BMI] 28.0-28.9, adult; Z79.01 Long term (current) use of anticoagulants; Z79.891 Long term (current) use of opiate analgesic; Z79.899 Other long term (current) drug therapy | CPT/HCPCS: 96127; 99212 ==

== ENCOUNTER 2025-04-07 11:02 | Outpatient (REF) | payer OTHER, SELFPAY ==
[2025-04-07 11:33] LABS: MANUAL DIFF FLAG NO
[2025-04-07 11:53] LABS: Hematocrit 38.1 % (37.0-47.0); Hemoglobin 12.4 g/dl (12.0-16.0); Imm Gran Abs Auto 0.03 X10*3/uL (0.00-0.03); Imm Gran Pct Auto 0.4 % (0.0-0.4); Lymphocytes Absolute Auto 1.4 X10*3/uL (1.2-4.9); Mean Corpuscular HGB Conc 32.5 g/dl (31.0-35.0); Mean Corpuscular Hemoglobin 28.4 pg (27.0-33.0); Mean Corpuscular Volume 87.2 fL (80.0-98.0); NRBC Abs Auto 0.000 X10*3/uL (0.0-0.012); NRBC Pct Auto 0.0 /100WBC (0.0-0.2); Platelet Count 188 X10*3/uL (160-400); Red Blood Count 4.37 X10*6/uL (4.20-5.50); White Blood Count 6.8 X10*3/uL (4.8-10.8)
[2025-04-07 12:09] LABS: Appearance Urine Hazy; Glucose Urine UA Negative (Negative); PH 6.0 (5.0-9.0); Specific Gravity - Urine >= 1.030 (1.005-1.025); UMIC TRIGGER UACC YES
[2025-04-07 12:46] LABS: Alanine Aminotransferase 9 U/L (0-31); Albumin Level 4.0 g/dL (3.5-5.0); Alkaline Phosphatase 99 U/L (39-117); Anion Gap 11 (12-20); Aspartate Amino Transferase 21 U/L (5-31); Blood Urea Nitrogen 13 mg/dL (9-16); Calcium 9.2 mg/dL (8.4-10.2); Carbon Dioxide 29 mmol/L (22-29); Chloride 104 mmol/L (96-108); Cholesterol 154 mg/dL (<200); Estimated Glomerular Filt Rate > 60; HDL Cholesterol 37 mg/dL (>40); Potassium 3.9 mmol/L (3.3-5.1); Sodium 140 mmol/L (135-145); Total Protein 7.4 g/dL (6.5-8.0); Triglycerides 118 mg/dL (<150)
[2025-04-07 12:54] LABS: Free T4 (Free Thyroxine) 1.50 ng/dL (0.71-1.85); Thyroid Stimulating Hormone 0.31 uIU/mL (0.32-4.0)
[2025-04-07 12:56] LABS: Folate 2.9 ng/mL (> or = 4.0); Vitamin B12 712 pg/mL (200-900)
--- OUTSIDE RECORDS SUMMARY | 2025-04-07 15:21 | XMS_ITS | Encounter Summary ---
Author Organization [facility] Address [address] [place] [address] Care Team Providers Care Industrial Hire Sales Assistant Name Role Phone Carlos Mata MD Primary Care Provider [phone]- [phone] Encounter Details Date Type Department Care Team (Late st Contact Info) Description 10/05/2024 Scanned Document [facility] at Home [address] [id number] Provider, Generic Social History Tobacco [...] on filedocumented in this encounter Care Teams Industrial Hire Sales Assistant Relationship Specialty Start Date End Date Carlos Mata MD [address] [place] [address] [place] [id number] PCP - General Internal Medicine 03/23/19 documented as of this encounter
--- OUTSIDE RECORDS SUMMARY | 2025-04-07 15:21 | XMS_ITS ---
Author Name [facility] Organization Unknown History of Medication Use Medication Directions Dispensed Refills Start Date End Date Stat us gabapentin (NEURONTIN) 400 MG capsule Take 400 mg by mouth 3 (three) times a day. active simvastatin (ZOCOR) 20 MG tablet Take 20 mg by mouth nightly. active TiZANidine (ZANAFLEX) 4 MG capsule Take 8 mg by mouth 3 (three) times a day as needed for muscle spasms. Take 1-2 tabs TID prn active Allergies Allergen Reaction Severity Comment Documented Date Source Statu s LATEX HIVES Moderate 03/29/2019 [facility] active Problems Problem Status Onset Date Problem Type Date of Resoluti on Source Abdominal pain, unspecified abdominal location active EncounterDiagnosisAct CCT Care Team Organization Name Specialty Phone Email Start Date End Da te [facility] 12/13/2024 12/15/2024 [facility] ANTHONY BETTS Primary Care 09/30/2024
--- OUTSIDE RECORDS SUMMARY | 2025-04-07 15:21 | XMS_ITS | Encounter Summary ---
Author Organization [facility] Address [address] [place] [address] Care Team Providers Care Weld Inspector Name Role Phone Carlos Mata MD Primary Care Provider [phone]- [phone] Encounter Details Date Type Department Care Team (Late st Contact Info) Description 10/26/2024 Scanned Document [facility] at Home [address] [phone] Provider, Generic Social History Tobacco [...] on filedocumented in this encounter Care Teams Weld Inspector Relationship Specialty Start Date End Date Carlos Mata MD [address] [place] [address] [place] [id number] PCP - General Internal Medicine 03/23/19 documented as of this encounter
--- OUTSIDE RECORDS SUMMARY | 2025-04-07 15:21 | XMS_ITS | Encounter Summary ---
Author Organization [facility] Address [address] [place] [address] Care Team Providers Care Advisory Software Engineer Name Role Phone [place] Mata MD Primary Care Provider +1- [phone] Encounter Details Date Type Department Care Team (Late st Contact Info) Description 11/05/2024 Scanned Document [facility] [address] [phone] Provider, Generic Social History Tobacco [...] on filedocumented in this encounter Care Teams Advisory Software Engineer Relationship Specialty Start Date End Date [place] Mata MD [address] [place] [address] [place] [address] PCP - General Internal Medicine 03/23/19 documented as of this encounter
--- OUTSIDE RECORDS SUMMARY | 2025-04-07 15:22 | XMS_ITS | Encounter Summary ---
Author Organization [facility] Address [address] [place] [address] Care Team Providers Care Air Hole Driller Name Role Phone [place] Mata MD Primary Care Provider +1- [phone] Encounter Details Date Type Department Care Team (Late st Contact Info) Description 11/16/2024 Scanned Document [facility] at [facility] [address] [phone] Provider, Generic Social History Tobacco [...] on filedocumented in this encounter Care Teams Air Hole Driller Relationship Specialty Start Date End Date [place] Mata MD [address] [place] [address] [place] [address] PCP - General Internal Medicine 03/23/19 documented as of this encounter
--- OUTSIDE RECORDS SUMMARY | 2025-04-07 15:22 | XMS_ITS | Encounter Summary ---
Author Organization [facility] Address [address] [place] [address] Care Team Providers Care Ethylbenzene Converter Operator Name Role Phone [place] Mata MD Primary Care Provider +1- [phone] Encounter Details Date Type Department Care Team (Late st Contact Info) Description 10/21/2024 Scanned Document [facility] at Home [address] [phone] Provider, Generic Social History [...] on filedocumented in this encounter Care Teams Ethylbenzene Converter Operator Relationship Specialty Start Date End Date [place] Mata MD [address] [place] [address] [place] [address] PCP - General Internal Medicine 03/23/19 documented as of this encounter
--- OUTSIDE RECORDS SUMMARY | 2025-04-07 15:22 | XMS_ITS | Encounter Summary ---
Author Organization [facility] Address [address] [place] [address] Care Team Providers Care Gum Scoring Machine Operator Name Role Phone [place] Mata MD Primary Care Provider +1- [phone] Encounter Details Date Type Department Care Team (Late st Contact Info) Description 10/12/2024 Scanned Document [facility] at [facility] [address] [phone] Provider, Generic Social History Tobacco [...] on filedocumented in this encounter Care Teams Gum Scoring Machine Operator Relationship Specialty Start Date End Date [place] Mata MD [address] [place] [address] [place] [address] PCP - General Internal Medicine 03/23/19 documented as of this encounter
--- OUTSIDE RECORDS SUMMARY | 2025-04-07 15:22 | XMS_ITS | Encounter Summary ---
Author Organization [facility] Address [address] [place] [address] Care Team Providers Care Boilermaker Pipe Fitter Name Role Phone [place] Mata MD Primary Care Provider +1- [phone] Encounter Details Date Type Department Care Team (Late st Contact Info) Description 10/19/2024 Scanned Document [facility] at Home [address] [phone] Provider, Generic Social History Tobacco [...] on filedocumented in this encounter Care Teams Boilermaker Pipe Fitter Relationship Specialty Start Date End Date [place] Mata MD [address] [place] [address] [place] [address] PCP - General Internal Medicine 03/23/19 documented as of this encounter
--- OUTSIDE RECORDS SUMMARY | 2025-04-07 15:22 | XMS_ITS | Encounter Summary ---
Author Organization [facility] Address [address] [place] [address] Care Team Providers Care Route Delivery Clerk Name Role Phone [place] Mata MD Primary Care Provider +1- [phone] Encounter Details Date Type Department Care Team (Late st Contact Info) Description 10/18/2024 Scanned Document [facility] at [facility] [address] [phone] Provider, Generic Social History Tobacco [...] on filedocumented in this encounter Care Teams Route Delivery Clerk Relationship Specialty Start Date End Date [place] Mata MD [address] [place] [address] [place] [address] PCP - General Internal Medicine 03/23/19 documented as of this encounter
--- OUTSIDE RECORDS SUMMARY | 2025-04-07 15:22 | XMS_ITS | Encounter Summary ---
Author Organization [facility] Address [address] [place] [address] Care Team Providers Care Civil Division Commander Deputy Sheriff Name Role Phone [place] Mata MD Primary Care Provider +1- [phone] Encounter Details Date Type Department Care Team (Late st Contact Info) Description 09/30/2024 Scanned Document [facility] at [facility] [address] [phone] Provider, Generic Social History Tobacco [...] on filedocumented in this encounter Care Teams Civil Division Commander Deputy Sheriff Relationship Specialty Start Date End Date [place] Mata MD [address] [place] [address] [place] [address] PCP - General Internal Medicine 03/23/19 documented as of this encounter
--- OUTSIDE RECORDS SUMMARY | 2025-04-07 15:22 | XMS_ITS | Encounter Summary ---
Author Organization [facility] Address [address] [place] [address] Care Team Providers Care Semiautomatic Stitcher Operator Name Role Phone [place] Mata MD Primary Care Provider +1- [phone] Encounter Details Date Type Department Care Team (Late st Contact Info) Description 10/11/2024 Scanned Document [facility] [address] [phone] Provider, Generic Social History Tobacco [...] on filedocumented in this encounter Care Teams Semiautomatic Stitcher Operator Relationship Specialty Start Date End Date [place] Mata MD [address] [place] [address] [place] [address] PCP - General Internal Medicine 03/23/19 documented as of this encounter
--- OUTSIDE RECORDS SUMMARY | 2025-04-07 15:22 | XMS_ITS | Encounter Summary ---
Author Organization [facility] Address [address] [place] [address] Care Team Providers Care Lowerator Operator Name Role Phone [place] Mata MD Primary Care Provider +1- [phone] Encounter Details Date Type Department Care Team (Late st Contact Info) Description 10/14/2024 Scanned Document [facility] at [facility] [address] [phone] Provider, Generic Social History Tobacco [...] on filedocumented in this encounter Care Teams Lowerator Operator Relationship Specialty Start Date End Date [place] Mata MD [address] [place] [address] [place] [address] PCP - General Internal Medicine 03/23/19 documented as of this encounter
--- OUTSIDE RECORDS SUMMARY | 2025-04-07 15:22 | XMS_ITS | Encounter Summary ---
Author Organization [facility] Address [address] [place] [address] Care Team Providers Care Account Collector Name Role Phone [place] Mata MD Primary Care Provider +1- [phone] Encounter Details Date Type Department Care Team (Late st Contact Info) Description 10/06/2024 Scanned Document [facility] [address] [phone] Provider, Generic Social History Tobacco [...] on filedocumented in this encounter Care Teams Account Collector Relationship Specialty Start Date End Date [place] Mata MD [address] [place] [address] [place] [address] PCP - General Internal Medicine 03/23/19 documented as of this encounter
--- OUTSIDE RECORDS SUMMARY | 2025-04-07 15:22 | XMS_ITS | Encounter Summary ---
Author Organization [facility] Address [address] [place] [address] Care Team Providers Care High School Math Teacher Name Role Phone [place] Mata MD Primary Care Provider +1- [phone] Encounter Details Date Type Department Care Team (Late st Contact Info) Description 10/07/2024 Scanned Document [facility] [address] [phone] Provider, Generic Social History Tobacco [...] on filedocumented in this encounter Care Teams High School Math Teacher Relationship Specialty Start Date End Date [place] Mata MD [address] [place] [address] [place] [address] PCP - General Internal Medicine 03/23/19 documented as of this encounter
--- OUTSIDE RECORDS SUMMARY | 2025-04-07 15:22 | XMS_ITS | Clinical Summary ---
Author Organization [facility] Address [address] [place] [address] Care Team Providers Care Member Services Coordinator Name Role Phone [place] Mata MD Primary Care Provider +1- [phone] Allergies Active Allergy Reactions Criticality Noted Date [...] 83 05/12/2019 12:50 PM EDT Temperature 36.7 C (98 F) 05/12/2019 12:13 PM EDT Respiratory Rate - - Oxygen Saturation 98% 05/12/2019 12:13 PM EDT Inhaled Oxygen Concentration - - Weight - - Height - - Body Mass Index - - Plan of Treatment Health Maintenance Due Date Last Done Comments Advance Care Planning 1960 Hepatitis C Virus Screening 1960 COVID-19 Vaccine [...] patient's age to complete this topic Insurance Care Teams Member Services Coordinator Relationship Specialty Start Date End Date [place] Mata MD [address] [place] [address] [place] [address] PCP - General Internal Medicine 03/23/19
--- OUTSIDE RECORDS SUMMARY | 2025-04-07 15:23 | XMS_ITS | Encounter Summary ---
Author Organization [facility] Address [address] [place] [address] Care Team Providers Care Industrial Hygiene Engineer Name Role Phone [place] Mata MD Primary Care Provider +1- [phone] Encounter Details Date Type Department Care Team (Late st Contact Info) Description 11/18/2024 Scanned Document [facility] [address] [phone] Provider, Generic Social History Tobacco [...] filedocumented in this encounter Care Teams Industrial Hygiene Engineer Relationship Specialty Start Date End Date [place] Mata MD [address] [place] [address] [place] [address] PCP - General Internal Medicine 03/23/19 documented as of this encounter
--- OUTSIDE RECORDS SUMMARY | 2025-04-07 15:23 | XMS_ITS | Encounter Summary ---
Author Organization [facility] Address [address] [place] [address] Care Team Providers Care Market Specialist Name Role Phone [place] Mata MD Primary Care Provider +1- [phone] Encounter Details Date Type Department Care Team (Late st Contact Info) Description 11/11/[address] [facility] [address] [phone] Provider, Generic Social History Tobacco [...] on filedocumented in this encounter Care Teams Market Specialist Relationship Specialty Start Date End Date [place] Mata MD [address] [place] [address] [place] [address] PCP - General Internal Medicine 03/23/19 documented as of this encounter
--- OUTSIDE RECORDS SUMMARY | 2025-04-07 15:23 | XMS_ITS | Encounter Summary ---
Author Organization [facility] Address [address] [place] [address] Care Team Providers Care Delivery Sales Worker Name Role Phone [place] Mata MD Primary Care Provider +1- [phone] Encounter Details Date Type Department Care Team (Late st Contact Info) Description 11/09/2024 Scanned Document [facility] [address] [phone] Provider, Generic Social History [...] on filedocumented in this encounter Care Teams Delivery Sales Worker Relationship Specialty Start Date End Date [place] Mata MD [address] [place] [address] [place] [address] PCP - General Internal Medicine 03/23/19 documented as of this encounter
[2025-04-08 06:28] LABS: Lyme Abs Screen <0.90 index
[2025-04-11 22:08] LABS: Anti Nuclear Antibody Pattern Nuclear, Speckled; Anti Nuclear Antibody Screen POSITIVE (NEGATIVE); Anti Nuclear Antibody Titer 1:80 titer
== END 2025-04-07 11:03 | disposition home or self-care (01) ==
LOC: HO.LAB 11:02
PROVIDERS: PCP Internal Medicine; Visit Provider Internal Medicine
DX: Z01.84 Encounter for antibody response examination (principal); E53.8 Deficiency of other specified B group vitamins; E78.00 Pure hypercholesterolemia, unspecified; M25.50 Pain in unspecified joint; R53.83 Other fatigue; E03.9 Hypothyroidism, unspecified; E55.9 Vitamin D deficiency, unspecified; R73.01 Impaired fasting glucose; D64.9 Anemia, unspecified; M79.7 Fibromyalgia
CPT/HCPCS: 36415; 80053; 80061; 81001; 81003; 82306; 82607; 82746; 83036; 84439; 84443; 85025; 85652; 86038; 86039; 86140; 86431; 86617; 86618

== ENCOUNTER 2025-04-11 11:07 | Outpatient (AMB) | payer OTHER, SELFPAY ==
[2025-04-11 11:21] VITALS: BP 120/82; PULSE 57; O2SAT 96; BMI 27.1
--- NOTE | 2025-04-11 11:21 | A.OFFPC_ITS ---
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: No Accompanied by: Self / Same As Patient Allergies latex (LATEX) Allergy (Intermediate, Verified 04/11/25 11:53) BLISTERS Medication List - Last Reconciled 04/11/25 by Carlos Mata MD albuterol sulfate 2.5 mg inhalation Q4H PRN blood pressure monitor (Blood Pressure Kit) As directed buspirone 30 mg PO BID 90 days cabergoline 0.25 mg (1/2 x 0.5 mg) PO .weekly 3 months doxepin 10 mg PO DAILY PRN Eliquis (apixaban) 5 mg PO BID 90 days NS escitalopram oxalate 20 mg PO DAILY hydrocodone-acetaminophen 10-325 mg 1 tab PO .2 to 3 times a day PRN 15 days hydroxychloroquine 200 mg PO BID 90 days levothyroxine 150 mcg PO DAILY 90 days lidocaine 5% 1 appl topical BID-TID PRN lorazepam 1 mg PO TID 90 days metoprolol tartrate 25 mg PO BID 90 days nitrofurantoin monohyd/m-cryst 100 mg (Macrobid) 100 mg PO Q12H 3 days pantoprazole 40 mg PO DAILY 90 days [QUAD CANE As directed] [teds hose As directed] tizanidine 8 mg (2 x 4 mg) PO Q8H 90 days tramadol 50 mg PO TID 90 days trazodone 50 mg PO BEDTIME PRN vibegron (Gemtesa) 75 mg PO DAILY 90 days [WRIST BRACES, bilateral (MEDIUM) As directed] Tobacco use date assessed: 04/11/25 Fall risk assessment: 2 + Falls in past year Last assessed Fall Risk: 04/11/25 Dental Screening Dental Screen Date: 04/11/25 Did you have a dental visit in the last 12 months?: No Did you have a dental problem in the last 6 months where you did not have access to dental care?: No Was dental information given to patient?: No HPI 3 mnth f/u HPI Details Patient comes in today for her follow up visit States that she has been feeling very depressed lately and tends to just break down in tears and crying often for no particular reason lately She used to be on Escitalopram 20 mg QD but states that she has not taken this Rx in a while now - is not sure when or why she stopped taking it Recalls also that the physical therapy that she went for a few months ago has helped her a lot as she is able to move her arms and shoulders better now than before but she had to stop going after a while as her insurance declined to continue covering her PT sessions She denies any headaches or dizziness Denies any chest pains, no increased shortness of breath No nausea/vomiting, no abdominal pain No change in bowel habits noted Adds that she has been experiencing some dysuria and UTI symptoms for over a week now States that she was called in a 3 days supply of Macrobid by a doctor control system computer scientist about a week or so ago and it did help with her symptoms somewhat but as it was only for 3 days, her symptoms did not really clear up completely She had her follow up labs done a few days ago - to discuss her results [facility] Medical History Insomnia Esophagitis Atrial fibrillation Osteoporosis Overweight (BMI 25.0-29.9) Pituitary macroadenoma HTN (hypertension) Hypokalemia Colonoscopy refused Pure hypercholesterolemia Acquired hypothyroidism Sjogren's syndrome Primary osteoarthritis, right shoulder Obesity (BMI 30-39.9) Depression Sjogren's disease Anemia Impaired fasting glucose Pure hypercholesterolemia COPD (chronic obstructive pulmonary disease) Acquired hypothyroidism Sacral dysfunction Right-sided low back pain with right-sided sciatica Anxiety Surgical History History of right hip replacement Closed displaced fracture of right patella Right carpal tunnel syndrome (~2010) H/O: hysterectomy Family History Father CAD (coronary artery disease) Thyroid disease CVD (cardiovascular disease) Mother CVD (cardiovascular disease) Scleroderma Sister No problems noted. Brother No problems noted. Sister No problems noted. Other Closed displaced fracture of right patella Social History Housing: House Alcohol intake: former Patient Tobacco Use Status: Former Tobacco user e-Cigarette/Vaping Use: Never Used Second Hand Smoke Exposure: Yes Substance Use Type: Marijuana service: No Current occupational status: retired and disabled Cognitive needs: Yes (cane) Hearing needs: No Vision needs: No Questionnaire PHQ-9 Over the last 2 weeks, how often have you been bothered by any of the following problems? 1. Little interest or pleasure in doing things: nearly every day 2. Feeling down, depressed, or hopeless: several days 3. Trouble falling or staying asleep, or sleeping too much: nearly every day 4. Feeling tired or having little energy: nearly every day 5. Poor appetite or overeating: nearly every day 6. Feeling bad about yourself - or that you are a failure or have let yourself or your family down: several days 7. Trouble concentrating on things, such as reading the newspaper or watching television: several days 8. Moving or speaking so slowly that other people could have noticed. Or the opposite - being so fidgety or restless that you have been moving around a lot more than usual: not at all 9. Thoughts that you would be better off or of hurting yourself in some way: not at all Total score: 15 Depression Screening Interpretation: Positive Depression Screening Follow-up: Existing condition, In treatment and Follow-up Visit Requested Depression Screening Done: Yes [id number] - PHQ-9 Billing: Yes Source: Developed by Drs. David Soares, Keiry Rodgers, Donn Walls and colleagues, with an educational violet from [employer]. Thrive Questionnaire Date Thrive assessed: 04/11/25 I am a: Patient What is your living situation today?: I have a steady place to live Within the past 12 months, did the food you bought not last and you didn't have the money to get more?: Never true Within the past 12 months, did you worry whether your food would run out before you got money to buy more?: Never true Do you have trouble paying for medicines?: No Do you have trouble getting transportation to medical appointments?: No Do you have trouble paying your heating and electricity bill?: No Do you have trouble taking care of your child, family member or friend?: No Do you have trouble with day-to-day activities such as bathing, preparing meals, shopping, managing finances, etc.?: No Are you currently unemployed and looking for a job?: No Are you interested in more education?: No Please select the resources that you would like help with: None Currently or been in a relationship where the following occur: No concerns reported THRIVE Score: 0 AUDIT C Alcohol Use Questionnaire (AUDIT-C) 1. How often do you have a drink containing alcohol?: Never 3. How often do you have six or more drinks on one occasion?: Never Total Score: 0 Score Reviewed/Action Taken: Yes PILY-7 AMB Questionnaire PILY-7 Date PILY - 7 assessed: 12/08/24 Source: Developed by Drs. David Soares, Keiry Rodgers, Donn Walls and colleagues, with an educational violet from [employer]. Review of Systems Const Denies chills, Reports difficulty sleeping, Reports fatigue, Denies fever(s) and Denies headache(s) ENT Reports dysphagia (on and off), Denies dizziness, Denies otalgia, Denies headache(s), Reports neck pain (increasing lately), Denies odynophagia and Denies sore throat Card Denies chest pain, Denies irregular heart rhythm, Denies palpitations and Reports dyspnea on exertion (mild) Resp Denies chest congestion, Denies cough, Reports dyspnea on exertion (mild) and Denies wheezing GI Denies abdominal pain, Denies constipation, Reports dysphagia (on and off), Denies heartburn, Denies diarrhea, Denies nausea, Denies odynophagia and Denies vomiting Denies difficulty voiding, Denies nocturia, Reports dysuria (mild) and Reports urinary urgency Musc Details: (+) right leg pain and swelling Reports abnormal gait (unsteady), Reports back pain (over the lower back), Reports arthralgias (involving multiple joints, including both shoulders and both hips) and Reports neck pain (increasing lately) Skin/Breast Denies rash Neuro Reports abnormal gait (unsteady), Denies dizziness, Denies headache(s) and Reports tremor(s) (patient describes as recurrent shakes due to her anxiety) Psych Reports as per HPI, Reports anxiety and Reports depression (increased) Endo Reports fatigue and Denies palpitations Aller/Immun Denies wheezing Physical exam (Primary Care) Vital Signs: Last Vital Signs Pulse 57 09/29/25 11:21 BP 120/82 04/11/25 11:21 Pulse Ox 96 04/11/25 11:21 Oxygen Delivery Method Room Air 04/11/25 11:21 BMI result Body Mass Index 27.1 Tobacco/Smoking Status: Tobacco use Status Tobacco use date assessed 04/11/25 04/11/25 11:24 Patient Tobacco Use Status Former Tobacco user 04/11/25 11:24 e-Cigarette/Vaping Use Never Used 04/11/25 11:24 PHQ-9: PHQ-9 Score PHQ-9: Total score 12 04/11/25 12:14 Depression Screening Interpretation: Positive Depression Screening Follow-up: Existing condition, In treatment and Follow-up Visit Requested Thrive Assessment: Date of Thrive Assessment Date Thrive assessed 04/11/25 04/11/25 11:24 Currently or been in a relationship where the following occur: No concerns r eported Const General: no acute distress and alert HENMT Ears: TM's normal bilaterally and EAC's normal Throat: Yes posterior oropharynx normal and Yes tonsils normal (no TP congestion) Neck Neck: No lymphadenopathy and Yes tender Thyroid: Thyroid normal Resp Auscultation: no crackles, no rales, no wheezes and diminished lung sounds bilateral Cardio Rate: regular rate Rhythm: regular rhythm Heart sounds: no murmurs GI Palpation (GI): Soft to palpation and nontender Auscultation: normal bowel sounds General: Yes no CVA tenderness Back/Spine/Pelvis Back: no CVA tenderness Cervical Spine: Cervical spine tenderness Thoracic/Lumbar Spine: lumbar spinal tenderness Skin Rashes: no rashes Extrem General: No clubbing, No cyanosis and Yes edema (1+, over the right lower extremity) Results Reviewed Results Reviewed: Laboratory Tests 04/07/25 04/07/25 11:26 11:32 WBC 6.8 Hgb 12.4 Hct 38.1 Plt Count 188 ESR 16 Sodium 140 Potassium 3.9 Creatinine 0.90 Estimated GFR > 60 Fasting Glucose 137 H Hemoglobin A1c % 5.4 Calcium 9.2 AST 21 ALT 9 C-Reactive Protein 0.27 Triglycerides 118 Cholesterol 154 LDL Cholesterol, Calc 94 HDL Cholesterol 37 L Vitamin B12 712 25-OH Vitamin D Total 35.4 TSH 0.31 L Free T4 1.50 Ur Specific [place] >= 1.030 H Urine Protein 100 (2+) H Urine Glucose (UA) Negative Urine Blood Large (3+) H Urine Nitrite Negative Ur Leukocyte Esterase Trace H Rheumatoid Factor < 13.0 Lyme Screen IgG & IgM <0.90 Coding Level of Care Code Est Pt Level 4 (27570) Complex EM visit Add On G2211 Diagnoses Chronic obstructive pulmonary disease, unspecified COPD type J44.9 COPD type: unspecified COPD Paroxysmal atrial fibrillation I48.0 Pure hypercholesterolemia E78.00 Esophagitis K20.90 Pituitary macroadenoma D35.2 Impaired fasting glucose R73.01 Acquired hypothyroidism E03.9 Chronic right-sided low back pain with right-sided sciatica M54.41; G89.29 Chronicity: chronic Neck pain M54.2 Sjogren's syndrome, with unspecified organ involvement M35.00 Sjogren's organ involvement: unspecified organ involvement Vitamin D deficiency E55.9 Age-related osteoporosis with current pathological fracture, sequela M80.00XS Encounter type: sequela Osteoporosis type: age-related Presence of current pathological fracture: with current pathological fracture Dysuria R30.0 Left shoulder pain, unspecified chronicity M25.512 Chronicity: unspecified Insomnia, unspecified type G47.00 Insomnia type: unspecified Anxiety F41.9 Episode of recurrent major depressive disorder, unspecified depression episode severity F33.9 Active/Remission status: currently active Depression Type: major depressive disorder Major depression episode severity: unspecified Major depression recurrence: recurrent Obesity (BMI 30-39.9) E66.9 Additional Codes PHQ-9 - 89720 - PHQ-9 Billing: Yes ([id number]) Assessment & Plan Assessment & Plan (1) COPD (chronic obstructive pulmonary disease): Code(s): J44.9 - Chronic obstructive pulmonary disease, unspecified Category: Medical Qualifiers: COPD type: unspecified COPD Qualified Code(s): J44.9 - Chronic obstructive pulmonary disease, unspecified Plan: This appears to be better controlled currently Continue Spiriva HandiHaler 18 mcg QD and Albuterol HFA 2 puffs QID PRN Chest CT done at the hospital a few months ago revealed findings suggestive of early pulmonary fibrosis Will consider referring her for pulmonary follow up and management if her symptoms continue to recur and progress (2) Paroxysmal atrial fibrillation: Code(s): I48.0 - Paroxysmal atrial fibrillation Category: Medical Plan: Patient was found to be in atrial fibrillation with rapid ventricular response during her hospitalization at [facility] earlier this year She converted back to normal sinus rhythm on Diltiazem and required Diltiazem drip for a while; is now maintained on Metoprolol 25 mg BID She currently remains in sinus rhythm and states that she's had no recurrence of symptoms of palpitations since her discharge from the hospital a few months ago She has a CHADS-VASc score of 3 and is currently still on Eliquis 5 mg BID for thromboembolism prophylaxis Cardiology has recommended to continue with rhythm approach at this time Follow up with cardiology as scheduled (3) Pure hypercholesterolemia: Code(s): E78.00 - Pure hypercholesterolemia, unspecified Category: Medical Plan: Results of her labs done a few months ago reviewed and discussed with patient - her cholesterol levels appear well-controlled on her current Rx Reinforced low cholesterol diet Continue Simvastatin 20 mg QD Will hold off on ordering her follow up labs for her next visit as she states that her current insurance does not cover labs done here at [facility] and she will try to figure out what she can do, including possibly switching insurance, when her insurance is up for renewal at the beginning of next year (4) Esophagitis: Code(s): K20.90 - Esophagitis, unspecified without bleeding Category: Medical Plan: She was seen by gastroenterology and had an upper GI series with small bowel follow through ordered for further evaluation a few months ago but patient did not go for her procedure - admits that she got scared about what the test might reveal and is hoping that her symptoms may just subside gradually over time CT angiogram of the chest done while she was in the hospital revealed findings of esophagitis, which is most likely the reason for her nausea and vomiting a few months ago as well as her recurrent dysphagia in the past Reinforced dietary restrictions Continue Pantoprazole 40 mg QD Follow-up with GI as scheduled (5) Pituitary macroadenoma: Code(s): D35.2 - Benign neoplasm of pituitary gland Category: Medical Plan: Patient was on Cabergoline 0.25 mg once a week previously but she stopped taking it when her last Rx ran out She was seen by neurology for follow up back in April 2023 - MRI showed a significant decrease in the size of a large sellar and suprasellar mass consistent with a pituitary macroadenoma She also had a prolactin level done a few months ago that came back significantly elevated at 196.5 ng/ml We have since referred her to endocrinology for further evaluation and management of her pituitary macroadenoma and hyperprolactinemia but it looks like she has not yet been seen As her referral is now over a year old, will redo endocrinology referral Follow up also with neurology as scheduled (6) Impaired fasting glucose: Code(s): R73.01 - Impaired fasting glucose Category: Medical Plan: Her FBS was again elevated at 137 mg/dl on her recent labs but her HgbA1c was normal at 5.4%; her in-office HgbA1c was also normal at 5.3% and 5.7% when previously checked Reinforced low calorie diet/exercise as tolerated (7) Acquired hypothyroidism: Code(s): E03.9 - Hypothyroidism, unspecified Category: Medical Plan: Her free T4 level was normal although her TSH was slightly suppressed on her recent labs Patient appears clinically euthyroid Continue Levothyroxine 150 mcg QD (8) Right-sided low back pain with right-sided sciatica: Code(s): M54.41 - Lumbago with sciatica, right side Category: Medical Qualifiers: Chronicity: chronic Qualified Code(s): M54.41 - Lumbago with sciatica, right side; G89.29 - Other chronic pain Plan: Reinforced activity and weight-lifting restrictions Continue Gabapentin 600 mg 3 times a day and Tramadol 50 mg TID PRN for pain Continue Kevin 10-325 mg 1 tablet 2 to 3 times a day as needed for increased pain Patient was receiving physical therapy at the beginning of 2019 - states that therapy was helping but this was cut short by the COVID-19 pandemic She is advised that we can try to refer her to PT again for this issue if her symptoms start to increase - patient states that she will call and ask for a referral when needed (9) Neck pain: Code(s): M54.2 - Cervicalgia Category: Medical Plan: She was sent for cervical spine x-rays for further evaluation of her recently increasing neck pain but she has not gotten this done yet so far (10) Sjogren's disease: Code(s): M35.00 - Sjogren syndrome, unspecified Category: Medical Qualifiers: Sjogren's organ involvement: unspecified organ involvement Qualified Code(s): M35.00 - Sicca syndrome, unspecified Plan: Continue Hydroxychloroquine tablets 200 mg BID Patient used to see Dr. Vizcaino for rheumatology follow up but does not a ppear to have been seen by rheumatology since her last visit sometime in 2021 Will refer her back to [facility] for follow up and continuing management (11) Vitamin D deficiency: Code(s): E55.9 - Vitamin D deficiency, unspecified Category: Medical Plan: Continue Vitamin D3 2000 units QD (12) Osteoporosis: Code(s): M81.0 - Age-related osteoporosis without current pathological fracture Category: Medical Qualifiers: Encounter type: sequela Osteoporosis type: age-related Presence of current pathological fracture: with current pathological fracture Qualified Code(s): M80.00XS - Age-related osteoporosis with current pathological fracture, unspecified site, sequela Plan: Her repeat BMD done a few months ago on 01/28/2024 revealed (+) severe osteoporosis based on the lowest T-score value of -4.4 in the femoral neck and history of fracture Her BMD in the left femur has declined significantly from her previous BMD; BMD in the AP spine is unchanged from previous Fall precautions reinforced She is also advised to continue with her daily oral calcium and vitamin D supplements She is supposed to exercise regularly but her activity tolerance is very limited, given her multiple issues We have also referred her to endocrinology at her last visit for further evaluation and management but she has not yet been seen - will renew referral (13) Dysuria: Code(s): R30.0 - Dysuria Category: Medical Plan: Her recent urinalysis revealed only (+) trace WBC but (+) large RBCs Will start her empirically on Macrobid again at 100 mg BID x 7 days and if her symptoms persist despite empiric Abx Tx, will consider sending her for renal US for further evaluation of her hematuria (14) Left shoulder pain: Code(s): M25.512 - Pain in left shoulder Category: Medical Qualifiers: Chronicity: unspecified Qualified Code(s): M25.512 - Pain in left shoulder Plan: Patient was sent for x-rays of the left shoulder previously for further evaluation but she did not get this done She was seen by orthopedics a few months ago and received a cortisone injection into her left shoulder with some relief She was then referred to physical therapy for her bilateral shoulder pain - patient states that PT appears to have helped a lot as she now has better ROM of her shoulders and arms although she again did not complete her PT sessions as her insurance declined to continue covering her physical therapy Follow up with orthopedics as scheduled (15) Insomnia: Code(s): G47.00 - Insomnia, unspecified Category: Medical Qualifiers: Insomnia type: unspecified Qualified Code(s): G47.00 - Insomnia, unspecified Plan: Sleep hygiene reinforced Continue Trazodone 50 mg Q HS PRN (16) Anxiety: Code(s): F41.9 - Anxiety disorder, unspecified Category: Medical Plan: Continue Lorazepam 1 mg TID PRN, Buspirone 30 mg BID and Doxepin 10 mg Q HS She was also on Escitalopram 20 mg QD but appears to have stopped taking this inadvertently at some point (17) Depression: Code(s): F32.9 - Major depressive disorder, single episode, unspecified Category: Medical Qualifiers: Active/Remission status: currently active Depression Type: major depressive disorder Major depression episode severity: unspecified Major depression recurrence: recurrent Qualified Code(s): F33.9 - Major depressive disorder, recurrent, unspecified Plan: Patient was on Escitalopram 20 mg QD in the past but appears to have stopped taking this inadvertently at some point, and is now reporting experiencing increased depressive symptoms She could not tolerate Mirtazapine in the past (leg cramps) She is still seeing a therapist regularly/weekly - to continue as scheduled Will go ahead and start her back on Escitalopram 20 mg QD - Rx sent (18) Obesity (BMI 30-39.9): Code(s): E66.9 - Obesity, unspecified Category: Medical Plan: Reinforced diet; exercise and weight loss are unrealistic given patient's physical limitations and issues Plan Follow up in 3 months Orders: Referrals Endocrinology Referral D35.2 - Benign neoplasm of pituitary gland, E23.6 - Other disorders of pituitary gland Rheumatology Referral M35.00 - Sjogren syndrome, unspecified, M80.00XS - Age- related osteoporosis with current pathological fracture, unspecified site, seque la Medications: Changed From nitrofurantoin monohyd/m-cryst 100 mg (Macrobid) must administer with a meal/food 100 mg PO Q12H 3 days 6 caps 0RF To nitrofurantoin monohyd/m-cryst 100 mg (Macrobid) must administer with a meal/food 100 mg PO Q12H 14 caps 0RF 7 days Refilled escitalopram oxalate 20 mg PO DAILY 90 tabs 1RF F41.9 - Anxiety disorder, unspecified
== END 2025-04-11 12:05 | disposition home or self-care (01) ==
LOC: HO.HMCH 11:07
PROVIDERS: PCP Internal Medicine; Visit Provider Internal Medicine
DX: J44.9 Chronic obstructive pulmonary disease, unspecified (principal); I48.0 Paroxysmal atrial fibrillation; D35.2 Benign neoplasm of pituitary gland; E78.00 Pure hypercholesterolemia, unspecified; K20.90 Esophagitis, unspecified without bleeding; R73.01 Impaired fasting glucose; E03.9 Hypothyroidism, unspecified; M54.41 Lumbago with sciatica, right side; G89.29 Other chronic pain; M54.2 Cervicalgia; M35.00 Sjogren syndrome, unspecified; E55.9 Vitamin D deficiency, unspecified; M80.00XS Age-related osteoporosis with current pathological fracture, unspecified site, sequela

== ENCOUNTER → 2025-04-11 11:07 | Outpatient (BNVA) | payer OTHER, SELFPAY | PROVIDERS: PCP Internal Medicine; Visit Provider Internal Medicine | DX: I48.0 Paroxysmal atrial fibrillation (principal); J44.9 Chronic obstructive pulmonary disease, unspecified; E78.00 Pure hypercholesterolemia, unspecified; K20.90 Esophagitis, unspecified without bleeding; D35.2 Benign neoplasm of pituitary gland; R73.01 Impaired fasting glucose; E03.9 Hypothyroidism, unspecified; M54.41 Lumbago with sciatica, right side; G89.29 Other chronic pain; M54.2 Cervicalgia; M35.00 Sjogren syndrome, unspecified; R30.0 Dysuria; M25.512 Pain in left shoulder; G47.00 Insomnia, unspecified; F41.9 Anxiety disorder, unspecified; F33.9 Major depressive disorder, recurrent, unspecified; E23.6 Other disorders of pituitary gland; M80.00XS Age-related osteoporosis with current pathological fracture, unspecified site, sequela; X58.XXXS Exposure to other specified factors, sequela; Z79.899 Other long term (current) drug therapy | CPT/HCPCS: 96127; 99212 ==

== ENCOUNTER 2025-05-23 15:15 | Outpatient (AMB) | payer OTHER, SELFPAY ==
--- NOTE | 2025-05-23 15:21 | MHC.PC.OV ---
Vital Signs 05/23/25 15:22 Height 5 ft 6 in Weight 171 lb 11.841 oz BMI 27.7 BP 102/66 Blood Pressure Location Lt brachial Position Sitting Pulse 62 Pulse Source Pulse Oximeter Temp 97.0 F Temp Source Temporal Artery Scan Pulse Oximetry (%) 98 Oxygen Delivery Method Room Air Intake Visit Reasons: [facility] 05/20 Allergies latex (LATEX) Allergy (Intermediate, Verified 05/24/25 01:32) BLISTERS Medication List - Last Reconciled 05/24/25 by NATALIA Todd albuterol sulfate 2.5 mg inhalation Q4H PRN blood pressure monitor (Blood Pressure Kit) As directed buspirone 30 mg PO BID 90 days cabergoline 0.25 mg (1/2 x 0.5 mg) PO .weekly 3 months doxepin 10 mg PO DAILY PRN Eliquis (apixaban) 5 mg PO BID 90 days NS escitalopram oxalate 20 mg PO DAILY hydrocodone-acetaminophen 10-325 mg 1 tab PO .2 to 3 times a day PRN 15 days hydroxychloroquine 200 mg PO BID 90 days levothyroxine 150 mcg PO DAILY 90 days lidocaine 5% 1 appl topical BID-TID PRN lorazepam 1 mg PO TID 90 days metoprolol tartrate 25 mg PO BID 90 days nitrofurantoin monohyd/m-cryst 100 mg (Macrobid) 100 mg PO Q12H 7 days pantoprazole 40 mg PO DAILY 90 days [QUAD CANE As directed] [teds hose As directed] tizanidine 8 mg (2 x 4 mg) PO Q8H 90 days tramadol 50 mg PO TID 90 days trazodone 50 mg PO BEDTIME PRN vibegron (Gemtesa) 75 mg PO DAILY 90 days [WRIST BRACES, bilateral (MEDIUM) As directed] Tobacco use date assessed: 05/23/25 Fall risk assessment: 2 + Falls in past year Last assessed Fall Risk: 05/23/25 Dental Screening Dental Screen Date: 05/23/25 Did you have a dental visit in the last 12 months?: No Did you have a dental problem in the last 6 months where you did not have access to dental care?: No Was dental information given to patient?: No HPI [facility] 05/20 HPI Details The patient is a 64-year-old female presenting for follow-up after a recent hospitalization f/b short-term rehab at [facility]. She reports that after a fall involving her left leg, she was unable to get up to go to the bathroom, which resulted in urine retention leading to a severe urinary tract infection and an associated acute kidney injury. She was hospitalized at [facility] where it was determined she did not have a fracture. Following discharge from the hospital, the patient spent 6 days at a rehabilitation facility to regain strength and received physical therapy. She expressed dissatisfaction with the facility's conditions, including the food and presence of bugs, but found the therapy beneficial. She is now scheduled to receive home physical therapy. Her past surgical history includes a knee replacement and screws in her femur on the right side. Her home has been previously modified to accommodate a handicap due to a prior hip issue. The patient's code status was reviewed and confirmed as Do Not Resuscitate (DNR) and Do Not Intubate (DNI), which is consistent with her wishes. [facility] Medical History Insomnia Esophagitis Atrial fibrillation Osteoporosis Overweight (BMI 25.0-29.9) Pituitary macroadenoma HTN (hypertension) Hypokalemia Colonoscopy refused Pure hypercholesterolemia Acquired hypothyroidism Sjogren's syndrome Primary osteoarthritis, right shoulder Obesity (BMI 30-39.9) Depression Sjogren's disease Anemia Impaired fasting glucose Pure hypercholesterolemia COPD (chronic obstructive pulmonary disease) Acquired hypothyroidism Sacral dysfunction Right-sided low back pain with right-sided sciatica Anxiety Surgical History History of right hip replacement Closed displaced fracture of right patella Right carpal tunnel syndrome (~2010) H/O: hysterectomy Family History Father CAD (coronary artery disease) Thyroid disease CVD (cardiovascular disease) Mother CVD (cardiovascular disease) Scleroderma Sister No problems noted. Brother No problems noted. Sister No problems noted. Other Closed displaced fracture of right patella Social History Housing: House Alcohol intake: former Patient Tobacco Use Status: Former Tobacco user e-Cigarette/Vaping Use: Never Used Second Hand Smoke Exposure: Yes Substance Use Type: Marijuana service: No Current occupational status: retired and disabled Cognitive needs: Yes (cane) Hearing needs: No Vision needs: No Questionnaire PHQ-9 Over the last 2 weeks, how often have you been bothered by any of the following problems? 1. Little interest or pleasure in doing things: nearly every day 2. Feeling down, depressed, or hopeless: several days 3. Trouble falling or staying asleep, or sleeping too much: nearly every day 4. Feeling tired or having little energy: nearly every day 5. Poor appetite or overeating: nearly every day 6. Feeling bad about yourself - or that you are a failure or have let yourself or your family down: several days 7. Trouble concentrating on things, such as reading the newspaper or watching television: several days 8. Moving or speaking so slowly that other people could have noticed. Or the opposite - being so fidgety or restless that you have been moving around a lot more than usual: not at all 9. Thoughts that you would be better off or of hurting yourself in some way: not at all Total score: 15 Depression Screening Interpretation: Positive Depression Screening Follow-up: Existing condition, In treatment and Follow-up Visit Requested Depression Screening Done: Yes Source: Developed by Drs. David Soares, Keiry Rodgers, Donn Walls and colleagues, with an educational violet from [employer]. Thrive Questionnaire Date Thrive assessed: 04/11/25 I am a: Patient What is your living situation today?: I have a steady place to live Within the past 12 months, did the food you bought not last and you didn't have the money to get more?: Never true Within the past 12 months, did you worry whether your food would run out before you got money to buy more?: Never true Do you have trouble paying for medicines?: No Do you have trouble getting transportation to medical appointments?: No Do you have trouble paying your heating and electricity bill?: No Do you have trouble taking care of your child, family member or friend?: No THRIVE Score: 0 AUDIT C Alcohol Use Questionnaire (AUDIT-C) 1. How often do you have a drink containing alcohol?: Never 3. How often do you have six or more drinks on one occasion?: Never Total Score: 0 PILY-7 AMB Questionnaire PILY-7 Date PILY - 7 assessed: 12/08/24 Feeling nervous, anxious, or on edge: 0 = Not at all Not being able to stop or control worryin = Not at all Worrying too much about different things: 0 = Not at all Trouble relaxin = Not at all Being so restless that it is hard to sit still: 0 = Not at all Becoming easily annoyed or irritable: 0 = Not at all Feeling afraid as if something awful might happen: 0 = Not at all Total PILY-7 score (0-4 normal; 5-9 mild; 10-14 moderate; 15-21 severe): 0 Source: Developed by Drs. David Soares, Keiry Rodgers, Donn Walls and colleagues, with an educational violet from [employer]. Review of Systems Const Denies headache(s) Eyes Denies loss of vision ENT Denies vertigo, Denies dizziness, Denies headache(s) and Denies sore throat Card Denies chest pain, Denies leg edema and Denies lightheadedness Resp Denies cough, Denies hemoptysis and Denies wheezing GI Denies abdominal pain, Denies melena, Denies constipation, Denies diarrhea and Denies vomiting Denies urinary frequency, Denies dysuria and Denies urinary urgency Musc Reports arthralgias (Left knee), Denies joint swelling, Denies numbness and Denies tingling Neuro Denies Abnormal speech present, Denies behavioral changes, Denies vertigo, Denies dizziness, Denies headache(s), Denies loss of vision, Denies memory loss, Denies numbness and Denies tingling Psych Denies anxiety, Denies behavioral changes, Denies depression, Denies memory loss and Denies panic attacks Darwin/Lymph Denies easy bleeding and Denies easy bruising Aller/Immun Denies wheezing Physical exam (Primary Care) Vital Signs: Last Vital Signs Temp 97.0 F 05/23/25 15:22 Pulse 62 05/23/25 15:22 BP 102/66 05/23/25 15:22 Pulse Ox 98 05/23/25 15:22 Oxygen Delivery Method Room Air 05/23/25 15:22 BMI result Body Mass Index 27.7 Tobacco/Smoking Status: Tobacco use Status Tobacco use date assessed 05/23/25 05/23/25 15:28 Patient Tobacco Use Status Former Tobacco user 05/23/25 15:28 e-Cigarette/Vaping Use Never Used 05/23/25 15:28 PHQ-9: PHQ-9 Score PHQ-9: Total score 15 05/23/25 15:28 Depression Screening Interpretation: Positive Depression Screening Follow-up: Existing condition, In treatment and Follow-up Visit Requested Thrive Assessment: Date of Thrive Assessment Date Thrive assessed 04/11/25 05/23/25 15:28 Const General: healthy appearing, no acute distress, alert and awake Nutritional Appearance: well nourished Orientation/consciousness: oriented to person, oriented to place and oriented to time HENMT Ears: TM's normal bilaterally General nose exam: Normal nasal mucous membranes and turbinates present Eyes Conjunctivae: conjunctivae normal Sclerae: sclerae normal Pupils: Equal, round and reactive pupils present Neck Neck: Yes no lymphadenopathy and Yes no JVD Thyroid: Thyroid normal Carotids: no bruits Resp Effort & Inspection: normal respiratory effort and not tachypneic Auscultation: no crackles, no rales, no rhonchi and no wheezes Cardio Rate: regular rate Rhythm: regular rhythm Heart sounds: no murmurs and normal S1 and S2 GI Palpation (GI): Soft to palpation, nontender, no hepatomegaly and no splenomegaly Auscultation: normal bowel sounds Skin General skin exam: no rashes or lesions noted and dry skin Neuro General: oriented to person, oriented to place and oriented to time Cranial nerves: Yes Equal, round and reactive pupils present Speech: No Abnormal speech present Gait exam (Neuro): Normal gait present Motor exam (neuro): no tremor noted Extrem Right upper extremity: full ROM Left upper extremity: full ROM Right lower extremity: full ROM; no edema Left lower extremity: full ROM and knee Details: no tenderness and no swelling; no edema Psych Mental Status: mental status grossly normal Speech and movement: Normal speech and movement present Affect: normal affect Attitude: cooperative Thought process: Normal thought process present Coding Level of Care Code Est Pt Level 3 (19083) Diagnoses Status post fall Z91.81 Urinary tract infection without hematuria, site unspecified N39.0 Urinary tract infection type: site unspecified Hematuria presence: without hematuria Gait instability R26.81 Acute pain of left knee M25.562 Chronicity: acute Time Spent (min) 31 Assessment & Plan Assessment & Plan (1) Status post fall: Code(s): Z91.81 - History of falling Category: Medical Plan: The patient is recovering from debility following a fall and subsequent hospitalization. She will continue with physical therapy, which will be provided in her home, to regain strength and mobility. (2) UTI (urinary tract infection): Code(s): N39.0 - Urinary tract infection, site not specified Category: Medical Qualifiers: Urinary tract infection type: site unspecified Hematuria presence: without hematuria Qualified Code(s): N39.0 - Urinary tract infection, site not specified Plan: The patient's recent urinary tract infection and acute kidney injury appear to be resolved following her recent hospitalization. No active management is required at this time. (3) Gait instability: Code(s): R26.81 - Unsteadiness on feet Category: Medical Plan: The patient is ambulating with a rolling walker. Pending starting home PT tomorrow, she unclear of all many days she will be receiving PT and she will be urine this information upon her PT evaluation. (4) Left knee pain: Code(s): M25.562 - Pain in left knee Category: Medical Qualifiers: Chronicity: acute Qualified Code(s): M25.562 - Pain in left knee Plan: Status post fall, no edema or tenderness to palpation. Some stiffness with range of motion noted. Patient does has a history of osteoarthritis and could be on exaggeration stemming from recent injury. Will be starting physical therapy, which will address her left knee pain.
[2025-05-23 15:22] VITALS: BP 102/66; PULSE 62; TEMP 36.1; O2SAT 98; BMI 27.7
--- OUTSIDE RECORDS SUMMARY | 2025-05-23 17:22 | XMS_ITS | Encounter Summary ---
Author Organization [facility] Address [address] [place] [address] Care Team Providers Care Jordan Man Name Role Phone Carlos Mata MD Primary Care Provider +1- [phone] Encounter Details Date Type Department Care Team (Late st Contact Info) Description 05/19/2025 Scanned Document [facility] at Home [address] [phone] Provider, Generic Social History Tobacco [...] on filedocumented in this encounter Care Teams Jordan Man Relationship Specialty Start Date End Date Carlos Mata MD [address] [place] [address] [place] [address] PCP - General Internal Medicine 03/23/19 documented as of this encounter
--- OUTSIDE RECORDS SUMMARY | 2025-05-23 17:22 | XMS_ITS | Encounter Summary ---
Author Organization [facility] Address [address] [place] [address] Care Team Providers Care Correctional Sergeant Name Role Phone Carlos Mata MD Primary Care Provider +1- [phone] Encounter Details Date Type Department Care Team (Late st Contact Info) Description 11/16/2024 Scanned Document [facility] [address] [phone] Provider, Generic Social History Tobacco [...] on filedocumented in this encounter Care Teams Correctional Sergeant Relationship Specialty Start Date End Date Carlos Mata MD [address] [place] [address] [place] [address] PCP - General Internal Medicine 03/23/19 documented as of this encounter
--- OUTSIDE RECORDS SUMMARY | 2025-05-23 17:22 | XMS_ITS | Encounter Summary ---
Author Organization [facility] Address [address] [place] [address] Care Team Providers Care Logging Worker Name Role Phone Carlos Mata MD Primary Care Provider +1- [phone] Encounter Details Date Type Department Care Team (Late st Contact Info) Description 05/21/2025 Scanned Document [facility] at Home [address] [phone] Provider, Generic Social History [...] on filedocumented in this encounter Care Teams Logging Worker Relationship Specialty Start Date End Date Carlos Mata MD [address] [place] [address] [place] [address] PCP - General Internal Medicine 03/23/19 documented as of this encounter
--- OUTSIDE RECORDS SUMMARY | 2025-05-23 17:22 | XMS_ITS | Encounter Summary ---
Author Organization [facility] Address [address] [place] [address] Care Team Providers Care Machine Feeder Floorperson Name Role Phone Carlos Mata MD Primary Care Provider +1- [phone] Encounter Details Date Type Department Care Team (Late st Contact Info) Description 11/05/2024 Scanned Document [facility] at Home [address] [phone] Provider, Generic Social History Tobacco [...] on filedocumented in this encounter Care Teams Machine Feeder Floorperson Relationship Specialty Start Date End Date Carlos Mata MD [address] [place] [address] [place] [address] PCP - General Internal Medicine 03/23/19 documented as of this encounter
--- OUTSIDE RECORDS SUMMARY | 2025-05-23 17:22 | XMS_ITS | Encounter Summary ---
Author Organization [facility] Address [address] [place] [address] Care Team Providers Care Top Carrier Name Role Phone Carlos Mata MD Primary Care Provider +1- [phone] Encounter Details Date Type Department Care Team (Late st Contact Info) Description 05/18/2025 Scanned Document [facility] at Home [address] [phone] Provider, Generic Social History Tobacco [...] on filedocumented in this encounter Care Teams Top Carrier Relationship Specialty Start Date End Date Carlos Mata MD [address] [place] [address] [place] [address] PCP - General Internal Medicine 03/23/19 documented as of this encounter
--- OUTSIDE RECORDS SUMMARY | 2025-05-23 17:22 | XMS_ITS | Encounter Summary ---
Author Organization [facility] Address [address] [place] [address] Care Team Providers Care Supervisor Drawing Name Role Phone Carlos Mata MD Primary Care Provider +1- [phone] Encounter Details Date Type Department Care Team (Late st Contact Info) Description 10/12/[address] [facility] at Home [address] [phone] Provider, Generic Social History Tobacco [...] on filedocumented in this encounter Care Teams Supervisor Drawing Relationship Specialty Start Date End Date Carlos Mata MD [address] [place] [address] [place] [address] PCP - General Internal Medicine 03/23/19 documented as of this encounter
--- OUTSIDE RECORDS SUMMARY | 2025-05-23 17:22 | XMS_ITS | Encounter Summary ---
Author Organization [facility] Address [address] [place] [address] Care Team Providers Care Aviation Safety Equipment Technician Name Role Phone Carlos Mata MD Primary Care Provider +1- [phone] Encounter Details Date Type Department Care Team (Late st Contact Info) Description 10/06/2024 Scanned Document [facility] [address] [phone] Provider, Generic Social History Tobacco [...] on filedocumented in this encounter Care Teams Aviation Safety Equipment Technician Relationship Specialty Start Date End Date Carlos Mata MD [address] [place] [address] [place] [address] PCP - General Internal Medicine 03/23/19 documented as of this encounter
--- OUTSIDE RECORDS SUMMARY | 2025-05-23 17:22 | XMS_ITS | Encounter Summary ---
Author Organization [facility] Address [address] [place] [address] Care Team Providers Care Retail Loss Prevention Investigator Name Role Phone Carlos Mata MD Primary Care Provider +1- [phone] Encounter Details Date Type Department Care Team (Late st Contact Info) Description 05/22/2025 Scanned Document [facility] [address] [phone] Provider, Generic Social History Tobacco [...] on filedocumented in this encounter Care Teams Retail Loss Prevention Investigator Relationship Specialty Start Date End Date Carlos Mata MD [address] [place] [address] [place] [address] PCP - General Internal Medicine 03/23/19 documented as of this encounter
--- OUTSIDE RECORDS SUMMARY | 2025-05-23 17:22 | XMS_ITS | Encounter Summary ---
Author Organization [facility] Address [address] [place] [address] Care Team Providers Care Drill Press Hand Name Role Phone Carlos Mata MD Primary Care Provider +1- [phone] Encounter Details Date Type Department Care Team (Late st Contact Info) Description 11/09/2024 Scanned Document [facility] [address] [phone] Provider, Generic Social History Tobacco [...] on filedocumented in this encounter Care Teams Drill Press Hand Relationship Specialty Start Date End Date Carlos Mata MD [address] [place] [address] [place] [address] PCP - General Internal Medicine 03/23/19 documented as of this encounter
--- OUTSIDE RECORDS SUMMARY | 2025-05-23 17:22 | XMS_ITS | Encounter Summary ---
Author Organization [facility] Address [address] [place] [address] Care Team Providers Care Electric Shipyard Operator Name Role Phone Carlos Mata MD Primary Care Provider +1- [phone] Encounter Details Date Type Department Care Team (Late st Contact Info) Description 10/21/2024 Scanned Document [facility] at [facility] [address] [phone] Provider, Generic Social History Tobacco [...] on filedocumented in this encounter Care Teams Electric Shipyard Operator Relationship Specialty Start Date End Date Carlos Mata MD [address] [place] [address] [place] [address] PCP - General Internal Medicine 03/23/19 documented as of this encounter
--- OUTSIDE RECORDS SUMMARY | 2025-05-23 17:22 | XMS_ITS ---
Author Organization [facility] y Care Team Providers Care Housekeeper Home Name Role Phone Mark Sharif Unavailable Unavailable Ramon Urias Unavailable Unavailable Allergies and adverse reactions Code CodeSystem Substance Reaction Severity StartDate Concern Status [id number] SNOMED CT Adhesive bandage Unknown 05/12/[id number] Latex Unknown 05/12/2025 active Care Team Name Role Address Phone Organization Dates Mark Sharif [place] [address] [facility], [place], [address], [facility] (Office): [facility] 05/12/2025 - 05/20/2025 Ramon Bro [address] [place] [address], [address], [place] (Office): [facility] 05/12/2025 - 05/20/2025 Encounters Encounter Type Code Code System Description Performer Discharge Disposition Service Delivery Location Date Ambulatory Encounter CPT Code = [id number] Urinary tract infectious disease [facility] Address: [address] [place] [address], [address], [facility]. 05/12 Ambulatory Encounter CPT Code = [id number] [facility]oxysmal atrial [facility] Address: [address] [place], [place] [address] 05/12 Ambulatory Encounter CPT Code = [id number] Retention of urine [facility] Address: [address] [place] [address], [address] [place] [address]. 05/12 Ambulatory Encounter CPT Code = [id number] Essential hypertension [facility] Address: [address] [place] [address], [address] [place] [address]. 05/12 Ambulatory Encounter CPT Code = [id number] Chronic obstructive pulmonary disease [facility] Address: [address] [place] [address], [address] [place] [address]. 05/12 Ambulatory Encounter CPT Code = [id number] Depressive disorder [facility] Address: [address] [place] [address], [address] [place] [address]. 05/12 Ambulatory Encounter CPT Code = [id number] Anxiety disorder [facility] Address: [address] [place] [address], [address] [place] [address]. 05/12 Ambulatory Encounter CPT Code = [id number] Chronic pain syndrome [facility] Address: [address] [place] [address], [address] [place] [address]. 05/12 Ambulatory Encounter CPT Code = [id number] Sj gren''s syndrome [facility] Address: [address] [place] [address], [address] [place] [address]. 05/12 Ambulatory Encounter CPT Code = [id number] Asthenia [facility] Address: [address] [place] [address], [address] [place] [address]. 05/12 Ambulatory Encounter CPT Code = [id number] Difficulty walking [facility] Address: [address] [place] [address], [address] [place] [address]. 05/12 Ambulatory Encounter CPT Code = [id number] Pain in left lower limb [facility] Address: [address] [place] [address], [address] [place] [address]. 05/12 Ambulatory Encounter CPT Code = [id number] Carpal tunnel [facility] Address: [address] [place] [address], [address] [place] [address]. 05/12 Ambulatory Encounter CPT Code = [id number] Acute kidney injury [facility] Address: [address] [place] [address], [address] [place] [address]. 05/12 Ambulatory Encounter CPT Code = [id number] Disorder of fluid AND/OR electrolyte [facility] Address: [address] [place] [address], [address] [place] [address]. 05/12 Ambulatory Encounter CPT Code = [id number] Hip pain [facility] Address: [address] [place] [address], [address] [place] [address]. 05/12 Ambulatory Encounter CPT Code = [id number] Pain of right knee joint [facility] Address: [address] [place] [address], [address] [place] [address]. 05/12 Ambulatory Encounter CPT Code = [id number] Hypothyroidism [facility] Address: [address] [place] [address], [address] [place] [address]. 05/12 Ambulatory Encounter CPT Code = [id number] Hyperlipidemia [facility] Address: [address] [place] [address], [address] [place] [address]. 05/12 Goals Section Goals Description Status Target Date Consume > 76% meals n o significant weight loss Active 08/10/2025 Patient will function at opt imal level within the limitations imposed by COPD x 90 days. Active 08/10/2025 Resident will be clean, neat , & appropriately dressed x 90 days. Active 08/10/2025 Resident will be free of adv erse effects of medication until next review Active 08/10/2025 Resident will choose indepen dent leisure activities and will actively participate in activities of interest 2-4 times weekly by next review Active 08/10/2025 Resident will have no acute illness related to h tn x _90days. Active 08/10/2025 Resident will have no signs of dehydration until next review. Active 08/10/2025 Resident will have no signs or symptoms of acute depression until next review. Active 08/10/2025 Resident will not sustain a fall related injury x 90 days. Active 08/10/2025 Resident will participate in adl's as able x _90 days Active 08/10/2025 Resident will remain stable cardiac/ circulatory status until next review. Active 08/10/2025 Resident will report relief of pain with treatment/medications as ordered each occurrence until next review 90 days Active 07/15 Resident will transfer with assist of 1 through next review. Active 08/10/2025 Skin will remain intact x 90 days. Active 08/10/2025 The resident will be free fr om s/sx of hypothyroidism through the review date. 90days Active 08/10/2025 The resident will have a nor mal bowel movement at least every 3 day through the review date. Active 08/10/2025 To reduce the risk of transmission of infection Active 08/10/2025 Will be free of urinary tract infection symptoms in x _7 days. Active 08/10/2025 Will have no symptoms of per sonality changes r/t retention of toxins x90 days. Active 08/10/2025 Immunizations Immunization Status Vaccine Details Vaccine Code CodeSystem Carlos e Notes TB 2 Step Mantoux Skin Test completed tuberculin skin test; unspecified formulation lotNumber: [id number] expiry: 08/13/2027 Mfg: Clicko Given 0.1 ml Right Forearm intradermally Step 1 of Multi-step with next step required 98 CVX created date: 05/13/2025 consent date: 05/13/2025 administere d date: 05/13/2025 Medications Section Medication Name Status Code CodeSystem Dose Route Frequency Admin Type Sig Text Start Date End Date Indication Acetaminoph en Suppository 650 MG active 3 RXNORM 1 suppo sitor y Rectal as needed PRN Inser t 1 suppo sitor y recta lly every 6 hours as neede d for Gener al Disco mfort , Temp Temp of 101 or Above * Max 3G per 24 Hours 2024 - General Discomfort, Temp tiZANidine HCl Oral Capsule 4 MG active 83383 5 RXNORM 2 capsu le Oral as needed PRN Give 2 capsu le by mouth every 8 hours as neede d for MUSCL E SPASM S 2024 - MUSCLE SPASMS LORazepam Oral Tablet 1 MG active 1 RXNORM 1 mg Oral as needed PRN Give 1 mg by mouth every 8 hours as neede d for Anxie ty;In [facility] ed Anxie ty for 90 Days 08/10 Anxiety;Inc reased Anxiety Cefpodoxime Proxetil Oral Tablet [address] [place] [facility] [address] 8 RXNORM 200 mg Oral two times a day Routin e Give 200 mg by mouth two times a day for uti for 1 Day 05/14 uti Albuterol Sulfate Inhalation Nebulizatio n Solution (2.5 MG/3ML) 0.083% active 23314 8 RXNORM 3 ml Inhala tion as needed PRN 3 ml inhal e orall y via nebul izer every 4 hours as neede d for Short ness of Breat h; wheez ing. Influ ray A (H1N1 ) 2024 - Shortness of Breath; wheezing. Influenza A (H1N1) Albuterol Sulfate HFA Inhalation Aerosol Solution 108 (90 Base) MCG/ACT active 65096 2 RXNORM 2 puff Inhala tion as needed PRN 2 puff inhal e orall y every 4 hours as neede d for wheez ing; short ness of breat h 2024 - wheezing; shortness of breath Levothyroxi ne Sodium Oral Tablet 150 MCG active 88843 5 RXNORM 150 mcg Oral one time a day Routin e Give 150 mcg by mouth one time a day relat ed to HYPOT HYROI DISM, UNSPE CIFIE D (E03. 9) 2024 - - Acetaminoph en Tablet 325 MG active 47308 2 RXNORM 2 table t Oral as needed PRN Give 2 table t by mouth every 6 hours as neede d for Pain - give 650mg total dose - N OT TO EXCEE D 3 GMS APAP / 24 HOURS AND Give 2 table t by mouth every 6 hours as neede d for [place] ratur e - give 650mg total dose - N OT TO EXCEE D 3 GMS APAP / 24 HOURS 2024 - Pain 91098 2 RXNORM 2 table t Oral as needed PRN Give 2 table t by mouth every 6 hours as neede d for Pain - give 650mg total dose - N OT TO EXCEE D 3 GMS APAP / 24 HOURS AND Give 2 table t by mouth every 6 hours as neede d for [place] ratur e - give 650mg total dose - N OT TO EXCEE D 3 GMS APAP / 24 HOURS 2024 - Elevated Temperature Naloxone HCl Liquid 4 MG/0.1ML active 92647 59 RXNORM 1 appli catio n in nostri l as needed PRN 1 appli catio n in nostr il as neede d for Opioi d Induc ed Respi rator y Depre ssion If resp. rate less than 6 per min and opioi d depre ssion suspe cted, rever se w/[place] can A dmini ster 4mg/0 .1ml Nalox one/N arcan intra nasal ly in 1 nostr il W ait 3 minut es. If no respo nse or slow to respo nd, repea t 4mg/0 .1ml in other nostr il C all 911 2024 - Opioid Induced Respiratory Depression Milk of Magnesia Suspension 400 MG/5ML active 63460 7 RXNORM 30 ml Oral as needed PRN Give 30 ml by mouth as neede d for Const ipati on; Use 1st - Give 30 mL by mouth as neede d for const ipati on 2024 - Constipatio n; Bisacodyl Suppository 10 MG active 9 RXNORM 1 suppo sitor y Rectal as needed PRN Inser t 1 suppo sitor y recta lly as neede d for Const ipati on Step 2-Ins ert 1 supp. recta lly once daily if milk of magne karla is ineff ectiv e 2024 - Constipatio n Fleet Enema Enema 7-19 GM/118ML active 64880 5 RXNORM 1 appli catio n Rectal as needed PRN Inser t 1 appli catio n recta lly as neede d for Const ipati on Admin ister if Bisac odyl ineff ectiv e. CALL MD FOR [facility] ER ORDER S IF FLEET ENEMA IS INEFF ECTIV E 2024 - Constipatio n HYDROcodone -Acetaminop hen Oral Tablet 10-325 MG aborted 71043 9 RXNORM 1 table t Oral as needed PRN Give 1 table t by mouth every 8 hours as neede d for Sever e Pain 05/13 Severe Pain Lexapro Oral Tablet 20 MG active 11315 3 RXNORM 20 mg Oral one time a day Routin e Give 20 mg by mouth one time a day relat ed to DEPRE SSION , UNSPE CIFIE D (F32. A) 2024 - - Apixaban Oral Tablet 5 MG active 97046 45 RXNORM 5 mg Oral every 12 hours Routin e Give 5 mg by mouth every 12 hours relat ed to PAROX YSMAL ATRIA L FIBRI LLATI ON (I48. 0) 2024 - - Metoprolol Tartrate Oral Tablet 25 MG active 86819 4 RXNORM 25 mg Oral two times a day Routin e Give 25 mg by mouth two times a day relat ed to ESSEN TIAL (PRIM SHELIA) HYPER TENSI ON (I10) 2024 - - busPIRone HCl Oral Tablet 30 MG active 34702 0 RXNORM 30 mg Oral two times a day Routin e Give 30 mg by mouth two times a day relat ed to ANXIE TY DISOR ANDRÉS, UNSPE CIFIE D (F41. 9) 2024 - - Doxepin HCl Oral Capsule 25 MG active 41330 70 RXNORM 25 mg Oral at bedtime Routin e Give 25 mg by mouth at bedti me relat ed to DEPRE SSION , UNSPE CIFIE D (F32. A) 2024 - - Hydroxychlo roquine Sulfate Oral Tablet 200 MG active 69141 2 RXNORM 200 mg Oral two times a day Routin e Give 200 mg by mouth two times a day for preve ntive maint enanc e 2024 - preventive maintenance traMADol HCl Oral Tablet 50 MG aborted 00603 3 RXNORM 50 mg Oral as needed PRN Give 50 mg by mouth every 8 hours as neede d for Sever e Pain 05/13 Severe Pain Pantoprazol e Sodium Oral Tablet Delayed Release 40 MG active 68675 0 RXNORM 40 mg Oral one time a day Routin e Give 40 mg by mouth one time a day for GERD 2024 - GERD traMADol HCl Oral Tablet 50 MG active 04524 3 RXNORM 50 mg Oral as needed PRN Give 50 mg by mouth every 8 hours as neede d for Sever e Pain AND Give 50 mg by mouth in the eveni ng for sever e pain 2024 - Severe Pain 78613 3 RXNORM 50 mg Oral in the evening Routin e Give 50 mg by mouth every 8 hours as neede d for Sever e Pain AND Give 50 mg by mouth in the eveni ng for sever e pain 2024 - severe pain HYDROcodone -Acetaminop hen Oral Tablet 10-325 MG active 32592 9 RXNORM 1 table t Oral as needed PRN Give 1 table t by mouth every 8 hours as neede d for Sever e Pain AND Give 1 table t by mouth one time a day for sever e pain 2024 - Severe Pain 84484 9 RXNORM 1 table t Oral one time a day Routin e Give 1 table t by mouth every 8 hours as neede d for Sever e Pain AND Give 1 table t by mouth one time a day for sever e pain 2024 - severe pain oxyCODONE HCl [place]apsule [place] [address] 96 RXNORM 1 table t Oral one time only One Time Only Give 1 table t by mouth one time only for pain for 1 Day 05/15 pain Insurance Providers Plan of Treatment Section Interventions Intervention Code Code System Display Name Proposed D ate Problems Problem # Description Date of onset Resolved Date Code CodeSystem Concern Status 1 DIFFICULTY IN WALKING, NOT ELSEWHERE CLASSIFIED [address] active 2 PAIN IN LEFT HIP [address] active 3 PAIN IN LEFT LEG [address] active 4 PAIN IN RIGHT KNEE [address] active 5 WEAKNESS [address] active 6 ACUTE KIDNEY FAILURE, UNSPECIFIED [address] active 7 ANXIETY DISORDER, UNSPECIFIED [address] active 8 CARPAL TUNNEL SYNDROME, BILATERAL UPPER LIMBS [address] active 9 CHRONIC OBSTRUCTIVE PULMONARY DISEASE, UNSPECIFIED [address] active 10 CHRONIC PAIN SYNDROME [address] active 11 DEPRESSION, UNSPECIFIED [address] active 12 ESSENTIAL (PRIMARY) HYPERTENSION [address] active 13 HYPERLIPIDEMIA, UNSPECIFIED [address] active 14 HYPOTHYROIDISM, UNSPECIFIED [address] active 15 OTHER DISORDERS OF ELECTROLYTE AND FLUID BALANCE, NOT ELSEWHERE CLASSIFIED [address] active 16 PAROXYSMAL ATRIAL FIBRILLATION [address] active 17 RETENTION OF URINE, UNSPECIFIED [address] active 18 SJOGREN SYNDROME, UNSPECIFIED [address] active 19 URINARY TRACT INFECTION, SITE NOT SPECIFIED [address] active Reason for Referral No Reasons for Referral Entered Social History Social History Observation Description Start Date End Date Code Code System Current Smoking Status Tobacco smoking consumption unknown 841511246 SNOMED CT Sex Assigned At Female 1960 01391-7 [facility] Gender Identity Sexual Orientation Vital Signs Code Code System Vitals Name Values and Units Timing Information 83587-4 LOINC Pain Level Value=7.0 05/20/2025 8302-2 LOINC Height Value=66.0 Units=Inches 05/18/2025 9279-1 LOINC Respiratory Rate Value=20.0 Units=/m in 05/17/2025 8462-4 [facility] Blood Pressure-Diastolic Value=75 Un its=mmHg 05/17/2025 8480-6 [facility] Blood Pressure-Systolic Pyzpk=465 Un its=mmHg 05/17/2025 8310-5 [facility] Body Temperature Value=97.9 Units= F 05/17/2025 8867-4 [facility] Heart rate Value=58.0 Units=/min 10/2024 61601-8 [facility] O2 % BldC Oximetry Value=97.0 Units= % 05/17/2025 62961-6 [facility] Weight Qelwh=123.2 Units=Lbs 10/2024
--- OUTSIDE RECORDS SUMMARY | 2025-05-23 17:22 | XMS_ITS | Encounter Summary ---
Author Organization [facility] Address [address] [place] [address] Care Team Providers Care Banbury Mill Operator Name Role Phone Carlos Mata MD Primary Care Provider +1- [phone] Encounter Details Date Type Department Care Team (Late st Contact Info) Description 09/30/2024 Scanned Document [facility] at Home [address] [address] Provider, Generic Social History Tobacco [...] on filedocumented in this encounter Care Teams Banbury Mill Operator Relationship Specialty Start Date End Date Carlos Mata MD [address] [place] [address] [place] [address] PCP - General Internal Medicine 03/23/19 documented as of this encounter
--- OUTSIDE RECORDS SUMMARY | 2025-05-23 17:22 | XMS_ITS | Encounter Summary ---
Author Organization [facility] Address [address] [place] [address] Care Team Providers Care Operations Manager Station Name Role Phone Carlos Mata MD Primary Care Provider +1- [phone] Encounter Details Date Type Department Care Team (Late st Contact Info) Description 10/11/2024 Scanned Document [facility] at Home [address] [address] Provider, Generic Social History Tobacco [...] on filedocumented in this encounter Care Teams Operations Manager Station Relationship Specialty Start Date End Date Carlos Mata MD [address] [place] [address] [place] [address] PCP - General Internal Medicine 03/23/19 documented as of this encounter
--- OUTSIDE RECORDS SUMMARY | 2025-05-23 17:22 | XMS_ITS | Encounter Summary ---
Author Organization [facility] Address [address] [place] [address] Care Team Providers Care Prop Cutter Name Role Phone Carlos Mata MD Primary Care Provider +1- [phone] Encounter Details Date Type Department Care Team (Late st Contact Info) Description 05/17/2025 Scanned Document [facility] at Home [address] [address] Provider, Generic Social History Tobacco [...] on filedocumented in this encounter Care Teams Prop Cutter Relationship Specialty Start Date End Date Carlos Mata MD [address] [place] [address] [place] [address] PCP - General Internal Medicine 03/23/19 documented as of this encounter
--- OUTSIDE RECORDS SUMMARY | 2025-05-23 17:22 | XMS_ITS | Encounter Summary ---
Author Organization [facility] Address [address] [place] [address] Care Team Providers Care Behavioral Specialist Name Role Phone Carlos Mata MD Primary Care Provider +1- [phone] Encounter Details Date Type Department Care Team (Late st Contact Info) Description 11/18/2024 Scanned Document [facility] at Home [address] [address] Provider, Generic Social History Tobacco [...] on filedocumented in this encounter Care Teams Behavioral Specialist Relationship Specialty Start Date End Date Carlos Mata MD [address] [place] [address] [place] [address] PCP - General Internal Medicine 03/23/19 documented as of this encounter
--- OUTSIDE RECORDS SUMMARY | 2025-05-23 17:22 | XMS_ITS | Encounter Summary ---
Author Organization [facility] Address [address] [place] [address] Care Team Providers Care Sulfur Chloride Operator Name Role Phone Carlos Mata MD Primary Care Provider +1- [phone] Encounter Details Date Type Department Care Team (Late st Contact Info) Description 10/18/2024 Scanned Document [facility] [address] [address] Provider, Generic Social History Tobacco [...] on filedocumented in this encounter Care Teams Sulfur Chloride Operator Relationship Specialty Start Date End Date Carlos Mata MD [address] [place] [address] [place] [address] PCP - General Internal Medicine 03/23/19 documented as of this encounter
--- OUTSIDE RECORDS SUMMARY | 2025-05-23 17:22 | XMS_ITS | Clinical Summary ---
Author Organization [facility] Address [address] [place] [address] Care Team Providers Care Care Connector Name Role Phone Carlos Mata MD Primary Care Provider +1- [phone] Allergies Active Allergy Reactions Criticality Noted Date [...] Encounters Date Type Department Care Team Description 05/23/2025 Scanned Document [facility] [address] [place] [address] Provider, Generic 05/22/2025 Scanned Document [facility] [address] [place] [address] Provider, Generic 05/21/2025 Scanned Document [facility] [address] [place] [address] Provider, Generic 05/20/2025 Scanned Document [facility] [address] [place] [address] Provider, Generic 05/19/2025 Scanned Document [facility] [address] [place] [address] Provider, Generic 05/18/2025 Scanned Document [facility] [address] [place] [address] Provider, Generic 05/17/2025 Scanned Document [facility] [address] [place] [address] Provider, Generic 05/16/2025 Scanned Document [facility] [address] [place] [address] Provider, Generic from Last 3 Months Social [...] 1977 Mammogram 1998 Colonoscopy 2003 RSV Vaccine 50 years and old er and Patients (1 - Risk 50-74 years 1-dose series) 2008 DXA Bone Density (Females,Ag es 65 and older) 2023 Influenza Vaccine 02/11/2025 Hepatitis B Vaccines Aged Out No long er eligible based on patient's age to complete this topic Insurance Care Teams Care Connector Relationship Specialty Start Date End Date Carlos Mata MD [address] [place] [address] [place] [address] PCP - General Internal Medicine 03/23/19
--- OUTSIDE RECORDS SUMMARY | 2025-05-23 17:22 | XMS_ITS | Encounter Summary ---
Author Organization [facility] Address [address] [place] [address] Care Team Providers Care Director Call Name Role Phone Carlos Mata MD Primary Care Provider +1- [phone] Encounter Details Date Type Department Care Team (Late st Contact Info) Description 05/23/2025 Scanned Document [facility] [address] [address] Provider, Generic Social History Tobacco [...] on filedocumented in this encounter Care Teams Director Call Relationship Specialty Start Date End Date Carlos Mata MD [address] [place] [address] [place] [address] PCP - General Internal Medicine 03/23/19 documented as of this encounter
--- OUTSIDE RECORDS SUMMARY | 2025-05-23 17:22 | XMS_ITS | Encounter Summary ---
Author Organization [facility] Address [address] [place] [address] Care Team Providers Care Gasoline Service Attendant Name Role Phone Carlos Mata MD Primary Care Provider +1- [phone] Encounter Details Date Type Department Care Team (Late st Contact Info) Description 10/26/2024 Scanned Document [facility] at Home [address] [address] Provider, Generic Social History Tobacco [...] on filedocumented in this encounter Care Teams Gasoline Service Attendant Relationship Specialty Start Date End Date Carlos Mata MD [address] [place] [address] [place] [address] PCP - General Internal Medicine 03/23/19 documented as of this encounter
--- OUTSIDE RECORDS SUMMARY | 2025-05-23 17:22 | XMS_ITS | Encounter Summary ---
Author Organization [facility] Address [address] [place] [address] Care Team Providers Care Special Machine Operator Name Role Phone Carlos Mata MD Primary Care Provider +1- [phone] Encounter Details Date Type Department Care Team (Late st Contact Info) Description 05/20/2025 Scanned Document [facility] at Home [address] [address] Provider, Generic Social History Tobacco [...] on filedocumented in this encounter Care Teams Special Machine Operator Relationship Specialty Start Date End Date Carlos Mata MD [address] [place] [address] [place] [address] PCP - General Internal Medicine 03/23/19 documented as of this encounter
--- OUTSIDE RECORDS SUMMARY | 2025-05-23 17:22 | XMS_ITS | Encounter Summary ---
Author Organization [facility] Address [address] [place] [address] Care Team Providers Care Crotch Piece Baster Name Role Phone Carlos Mata MD Primary Care Provider +1- [phone] Encounter Details Date Type Department Care Team (Late st Contact Info) Description 11/11/2024 Scanned Document [facility] [address] [phone] Provider, Generic Social History [...] on filedocumented in this encounter Care Teams Crotch Piece Baster Relationship Specialty Start Date End Date Carlos Mata MD [address] [place] [address] [place] [address] PCP - General Internal Medicine 03/23/19 documented as of this encounter
--- OUTSIDE RECORDS SUMMARY | 2025-05-23 17:22 | XMS_ITS | Encounter Summary ---
Author Organization [facility] Address [address] [place] [address] Care Team Providers Care Garnett Machine Operator Name Role Phone Carlos Mata MD Primary Care Provider +1- [phone] Encounter Details Date Type Department Care Team (Late st Contact Info) Description 10/07/2024 Scanned Document [facility] [address] [phone] Provider, Generic Social History Tobacco [...] on filedocumented in this encounter Care Teams Garnett Machine Operator Relationship Specialty Start Date End Date Carlos Mata MD [address] [place] [address] [place] [address] PCP - General Internal Medicine 03/23/19 documented as of this encounter
--- OUTSIDE RECORDS SUMMARY | 2025-05-23 17:22 | XMS_ITS | Encounter Summary ---
Author Organization [facility] Address [address] [place] [address] Care Team Providers Care Balloon Artist Name Role Phone Carlos Mata MD Primary Care Provider +1- [phone] Encounter Details Date Type Department Care Team (Late st Contact Info) Description 10/14/2024 Scanned Document [facility] [address] [address] Provider, Generic Social History Tobacco [...] on filedocumented in this encounter Care Teams Balloon Artist Relationship Specialty Start Date End Date Carlos Mata MD [address] [place] [address] [place] [address] PCP - General Internal Medicine 03/23/19 documented as of this encounter
--- OUTSIDE RECORDS SUMMARY | 2025-05-23 17:22 | XMS_ITS | Encounter Summary ---
Author Organization [facility] Address [address] [place] [address] Care Team Providers Care Oxidized Finish Plater Name Role Phone Carlos Mata MD Primary Care Provider +1- [phone] Encounter Details Date Type Department Care Team (Late st Contact Info) Description 10/05/2024 Scanned Document [facility] [address] [phone] Provider, Generic Social History Tobacco [...] on filedocumented in this encounter Care Teams Oxidized Finish Plater Relationship Specialty Start Date End Date Carlos Mata MD [address] [place] [address] [place] [address] PCP - General Internal Medicine 03/23/19 documented as of this encounter
--- OUTSIDE RECORDS SUMMARY | 2025-05-23 17:22 | XMS_ITS | Encounter Summary ---
Author Organization [facility] Address [address] [place] [address] Care Team Providers Care Fermentation Scientist Name Role Phone Carlos Mata MD Primary Care Provider +1- [phone] Encounter Details Date Type Department Care Team (Late st Contact Info) Description 05/16/2025 Scanned Document [facility] [address] [address] Provider, Generic Social History Tobacco [...] on filedocumented in this encounter Care Teams Fermentation Scientist Relationship Specialty Start Date End Date Carlos Mata MD [address] [place] [address] [place] [address] PCP - General Internal Medicine 03/23/19 documented as of this encounter
--- OUTSIDE RECORDS SUMMARY | 2025-05-23 17:22 | XMS_ITS | Encounter Summary ---
Author Organization [facility] Address [address] [place] [address] Care Team Providers Care Automotive Glass Mechanic Name Role Phone Carlos Mata MD Primary Care Provider +1- [phone] Encounter Details Date Type Department Care Team (Late st Contact Info) Description 10/19/2024 Scanned Document [facility] [address] [address] Provider, Generic Social History [...] on filedocumented in this encounter Care Teams Automotive Glass Mechanic Relationship Specialty Start Date End Date Carlos Mata MD [address] [place] [address] [place] [address] PCP - General Internal Medicine 03/23/19 documented as of this encounter
== END 2025-05-23 15:53 | disposition home or self-care (01) ==
LOC: HO.HMCH 15:16
PROVIDERS: PCP Internal Medicine
DX: Z91.81 History of falling (principal); N39.0 Urinary tract infection, site not specified; R26.81 Unsteadiness on feet; M25.562 Pain in left knee

== ENCOUNTER → 2025-05-23 15:15 | Outpatient (BNVA) | payer OTHER, SELFPAY | PROVIDERS: PCP Internal Medicine | DX: R26.81 Unsteadiness on feet (principal); M25.562 Pain in left knee; N39.0 Urinary tract infection, site not specified; Z91.81 History of falling | CPT/HCPCS: 96127; 99212 ==

== ENCOUNTER 2025-05-27 12:03 | Outpatient (REF) | payer OTHER, SELFPAY ==
--- NOTE | ~2025-05-27 | MM_ITS ---
EXAMINATION: MM SCREENING DIGITAL BREAST TOMOSYNTHESIS, BILATERAL CLINICAL INFORMATION: Screening. Asymptomatic. COMPARISON: Mammography: Comparison is made with available priors TECHNIQUE: Digital breast mammography with tomosynthesis is performed in both the craniocaudal and mediolateral oblique views along with computer-aided detection (CAD). FINDINGS: There are scattered areas of fibroglandular density. Left marker clip. There are no significant masses, abnormal calcifications, or other abnormalities. MM/MM tomosynthesis screening BI IMPRESSION: No mammographic evidence of malignancy. ASSESSMENT: BI-RADS Category 2: Benign RECOMMENDATION: Routine annual mammography screening. 1 year F/U This examination should not preclude the clinical evaluation of a suspicious palpable abnormality. This patient's information was entered into a reminder system with a target due date for their next mammogram. Electronically signed by: Zuleyma Saldaña DO 05/31/2025 09:38 AM [email or web address]
== END 2025-05-27 12:04 | disposition home or self-care (01) ==
LOC: HO.MAMMO 12:03
PROVIDERS: PCP Internal Medicine; Visit Provider Internal Medicine
DX: Z12.31 Encounter for screening mammogram for malignant neoplasm of breast (principal)
CPT/HCPCS: 77063; 77067

== ENCOUNTER → 2025-05-27 12:15 | Outpatient (BNV) | payer OTHER, SELFPAY | PROVIDERS: PCP Internal Medicine; Visit Provider Internal Medicine | DX: Z12.31 Encounter for screening mammogram for malignant neoplasm of breast (principal) | CPT/HCPCS: 77063; 77067 ==